=== PATIENT | male | born 1970 | race Caucasian/White ===

== ENCOUNTER 2020-04-06 19:23 | Outpatient (CLI) | payer MEDICARE, SELFPAY ==
--- NOTE | ~2020-04-06 | XR_ITS ---
EXAMINATION: XR toe 1st RT min 2V, XR toe 2nd RT min 2V DATE: 04/06/2020 19:49 INDICATION: Pain and swelling at the right first and second toes after stubbing injury. TECHNIQUE: 1. Dorsal plantar, lateral and oblique views of the right first toe were obtained. 2. Dorsal plantar, lateral and oblique views of the right second toe were obtained. COMPARISON: Right foot radiographs dated 12/29/2013 FINDINGS: Bone alignment is normal. No acute fracture. Chronic appearing small cortical defect along the latera l articular surface of the right first distal phalanx which is new since the prior study and could re present a chronic erosion such as in the setting of gout or an old healed fracture cleft. Mild osteoa rthritis at the first metatarsophalangeal, first interphalangeal, second-fourth distal interphalangea l and fourth proximal interphalangeal joints. Achilles calcaneal enthesophyte. IMPRESSION: No acute osseous abnormality at the right first or second toes. Reviewed, dictated and finalized at location A. IMPRESSION: No acute osseous abnormality at the right first or second toes.
--- NOTE | ~2020-04-06 | XR_ITS ---
EXAMINATION: XR hip BI 2V w AP pelvis DATE: 04/06/2020 19:51 INDICATION: Bilateral hip pain, left greater than right. TECHNIQUE: Anteroposterior view of the pelvis and anteroposterior and frog-leg lateral views of the l eft hip and anteroposterior and frog-leg lateral views of the right hip and were obtained. COMPARISON: None. FINDINGS: Alignment is normal. No fracture or suspected avascular necrosis. Mild bilateral hip osteoarthritis w ith small marginal osteophytes about the femoral heads and acetabula but with relatively preserved pascual int spaces on the provided frontal projections. Sacrum and bilateral sacral iliac joints are normal. Mild to moderate left-sided predominant disc height loss at L4-L5. Mild lower lumbar facet osteoarthr itis. IMPRESSION: 1. Mild bilateral hip osteoarthritis. Reviewed, dictated and finalized at location A.
== END 2020-04-06 19:24 | disposition home or self-care (01) ==
LOC: ANHIMG 19:26
PROVIDERS: PCP Internal Medicine; Visit Provider Clinical Nurse Specialist
DX: M16.0 Bilateral primary osteoarthritis of hip (principal)
CPT/HCPCS: 73521; 73660

== ENCOUNTER 2020-05-14 18:46 | Emergency (ER) | payer MEDICARE, SELFPAY ==
[2020-05-14 18:50] VITALS: BP 177/88; PULSE 81; RESP 20; TEMP 35.9; O2SAT 98
--- NOTE | 2020-05-14 19:50 | ED.GENADULT ---
HPI - General Adult General Chief complaint: Extremity Injury, Lower Stated complaint: left hip pain Time Seen by Provider: 05/14/20 19:18 Source: patient and family Mode of arrival: ambulatory Limitations: no limitations History of Present Illness HPI narrative: 49-year-old male He is mostly healthy despite being morbidly obese, but has a history of some kind of work injury which got him on disability some years ago and he also has a syrinx in his upper spine He reports for about 8 weeks after lifting something heavy and awkward that he has been having what he described his hip pain but it really sounds more like it is lumbar radicular pain since it varies from side to side and sometimes is gone currently it seems to have settled in the left side and radiates posteriorly through the buttocks and all the way down into the calf on the left leg He reports that he is having more and more difficulty ambulating due to the pain He does not have weakness or numbness nor does he have bowel or bladder dysfunction nor does he have any particular risk factors for anything other than a mechanical low back issue He had hip x-rays which showed mild osteoarthritis He has an appointment to see a specialty physician on June 09, but he does not have the information with him and does not know exactly who the doctor is or exactly what their specialty is whether it would be Ortho, or spine, or pain management At some point he was supposed to have gone to physical therapy but the connection with the PT clinic was missed Onset (ago): week(s) Location: buttocks, left and lower extremity Severity: severe Quality: dull Pain Consistency: intermittent Relieving factors: none Exacerbating factors: movement Treatments prior to arrival: other (Tylenol) Related Data Home Medications Medication Instructions Recorded Confirmed aspirin 81 mg tablet,delayed 81 mg PO DAILY 10/24/19 12/18/19 release duloxetine 60 mg capsule,delayed 60 mg PO DAILY 10/24/19 12/18/19 release empagliflozin 10 mg tablet 10 mg PO QAM 10/24/19 12/18/19 sildenafil (pulm.hypertension) 20 20 mg PO DAILY PRN tablet 10/24/19 12/18/19 mg tablet omeprazole 40 mg capsule,delayed 40 mg PO DAILY PRN 03/04/20 release Allergies Allergy/AdvReac Type Severity Reaction Status Date / Time amitriptyline Allergy Unknown Verified 06/21/18 15:48 No Known Allergies Allergy Verified 06/29/18 09:29 Review of Systems Review of Systems: All systems reviewed & are unremarkable except as noted in HPI and below Constitutional: Constitutional: Reports no additional constitutional complaints Eyes: Eyes: Reports no additional eye complaints ENT: Reports system reviewed and no additional complaints, except as documented Cardiovascular: Cardiovascular: Reports no additional cardiovascular complaints Respiratory: Respiratory: Reports no additional respiratory complaints Gastrointestinal: Gastrointestinal: Reports no additional gastrointestinal complaints Musculoskeletal: Musculoskeletal: Reports no additional musculoskeletal complaints and Reports back pain Neurologic: Denies dizziness, Denies focal weakness and Denies weakness Comments: Paresthesia [facility] Past Medical History Medical History (Updated 05/14/20 @ 20:02 by Rory Barrett MD) Appendix injury Removed Bronchitis Bulging disc Cholecystectomy planned 2010 Constipation CTS (carpal tunnel syndrome) Diarrhea Erectile dysfunction Hypercholesterolemia Hypertension Migraine Mononucleosis MRSA (methicillin resistant Staphylococcus aureus) Pneumonia PTSD (post-traumatic stress disorder) Recurrent UTI Sleep apnea Type 2 diabetes mellitus Surgical History Surgical History (Updated 12/18/19 @ 15:06 by Angelica Chaney CMA) H/O elbow surgery H/O shoulder surgery RIght H/O toe surgery Pins in left toe H/O uvulectomy H/O vasectomy History of ear surgery Right History of tonsillectomy Family History F
[2020-05-14 20:30] VITALS: BP 133/78; PULSE 88; RESP 19; O2SAT 97
== END 2020-05-14 20:30 | disposition home or self-care (01) ==
PROVIDERS: Emergency Provider Emergency Medicine; PCP Internal Medicine
DX: M54.16 Radiculopathy, lumbar region (principal); E66.01 Morbid (severe) obesity due to excess calories; Z68.41 Body mass index [BMI] 40.0-44.9, adult; M16.10 Unilateral primary osteoarthritis, unspecified hip; E78.00 Pure hypercholesterolemia, unspecified; I10 Essential (primary) hypertension; Z86.14 Personal history of Methicillin resistant Staphylococcus aureus infection; E11.9 Type 2 diabetes mellitus without complications; G47.30 Sleep apnea, unspecified; Z79.82 Long term (current) use of aspirin
CPT/HCPCS: 99283

== ENCOUNTER → 2020-07-14 11:05 | Outpatient (CLI) | payer MEDICARE, SELFPAY ==
--- NOTE | ~2020-07-14 | XR_ITS ---
EXAMINATION: XR chest 2V EXAM DATE: 07/14/2020 11:45 INDICATION: Sharp anterior chest pain mostly left of the xiphoid. TECHNIQUE: Frontal and lateral projections of the chest obtained and reviewed. Comparison is made to prior examination from 05/29/2018. FINDINGS: The lungs are clear. There are no pleural effusions. The cardiomediastinal silhouette is within normal limits. There is no pneumothorax suspected. The bones and soft tissues are unremarkab le. There is no significant interval change. IMPRESSION: No acute cardiopulmonary findings. Reviewed, dictated and finalized at location B.
== END ==
PROVIDERS: PCP Internal Medicine; Visit Provider Internal Medicine
DX: R07.89 Other chest pain (principal)
CPT/HCPCS: 71046

== ENCOUNTER → 2020-08-11 12:02 | Outpatient (CLI) | payer MEDICARE, SELFPAY ==
--- NOTE | ~2020-08-11 | US_ITS ---
EXAMINATION: US abdomen complete DATE: 08/11/2020 12:31 INDICATION: Left upper quadrant pain TECHNIQUE: Multiple grayscale and Doppler ultrasound images of the abdomen were obtained. COMPARISON: 03/29/2016; CT, 12/06/2016 FINDINGS: Bowel gas obscures visualization of the pancreas. The visualized portions of the pancreas a re unremarkable. The liver demonstrates increased echogenicity, heterogenous echotexture, and decreas ed through transmission. No surface nodularity. Normal hepatopetal flow in the main portal vein. The normal common bile duct measures 4 mm. The visualized portions of the aorta and inferior vena cava ar e normal. The right kidney measures 13.1 x 5.5 x 6.7 cm. The left kidney measures 13.1 x 6.9 x 5.0 cm and conta ins cysts measuring up to 2.4 cm. The kidneys demonstrate normal parenchymal echogenicity. There is n o hydronephrosis. The spleen is normal in appearance and measures 12.9 cm. IMPRESSION: 1. No sonographic correlate for the patient's symptoms. 2. Diffuse hepatic steatosis. Reviewed, dictated and finalized at location A.
== END ==
PROVIDERS: PCP Internal Medicine; Visit Provider Nurse Practitioner
DX: R10.12 Left upper quadrant pain (principal); E11.9 Type 2 diabetes mellitus without complications; K76.0 Fatty (change of) liver, not elsewhere classified
CPT/HCPCS: 76700

== ENCOUNTER → 2020-08-18 14:01 | Outpatient (CLI) | payer MEDICARE, SELFPAY ==
--- NOTE | ~2020-08-18 | CT_ITS ---
EXAMINATION: CT abdomen pelvis wo con DATE: 08/18/2020 14:17 INDICATION: Left upper quadrant pain TECHNIQUE: Computed tomography (CT) of the abdomen and pelvis was performed without intravenous contr ast. The dose-length product was 1195.67 mGy-cm. Automated exposure control and iterative reconstruct ion technique were employed. COMPARISON: CT dated 12/06/2016. FINDINGS: Lung bases are unremarkable. Heart size normal. No significant pleural or pericardial effus ion. No significant vascular abnormality. No lymphadenopathy. Status post cholecystectomy. The spleen, pancreas, adrenal glands and kidneys are unremarkable. No re nal/ureteral stones or hydronephrosis. There is hepatic steatosis. Tiny fat-containing umbilical avel ia. No abnormal pelvic masses or fluid collections. No significant osseous abnormality. Bladder is no t well distended. Nonobstructive bowel gas pattern. No evidence for diverticulitis. Mild chronic ante rior wedging of T11 and T12. IMPRESSION: 1. No acute abdominal abnormality. 2: Hepatic steatosis. Reviewed, dictated and finalized at location A.
== END ==
PROVIDERS: PCP Internal Medicine; Visit Provider Nurse Practitioner
DX: R10.12 Left upper quadrant pain (principal); K76.0 Fatty (change of) liver, not elsewhere classified
CPT/HCPCS: 74176

== ENCOUNTER 2021-01-28 13:47 | Outpatient (CLI) | payer MEDICARE, SELFPAY | END 2021-01-28 13:48 | disposition home or self-care (01) | LOC: ANHBWCAUD 13:49 | PROVIDERS: PCP Internal Medicine; Visit Provider Nurse Practitioner | DX: H91.90 Unspecified hearing loss, unspecified ear (principal) | CPT/HCPCS: 92557; 92567 ==

== ENCOUNTER → 2021-05-06 12:56 | Outpatient (CLI) | payer MEDICARE, SELFPAY ==
--- NOTE | ~2021-05-06 | MR_ITS ---
EXAMINATION: MR shoulder LT wo con DATE: 05/06/2021 13:40 INDICATION: Chronic worsening left shoulder pain, weakness and limited range of motion. TECHNIQUE: Magnetic resonance imaging (MRI) of the left shoulder was performed without intravenous co ntrast. Sequences included axial PD-weighted FS FSE, coronal oblique PD-weighted FS FSE, coronal obli que T2-weighted FS FSE, sagittal PD-weighted FS FSE, and sagittal T1-weighted SE. COMPARISON: 09/25/2012 FINDINGS: Coracoacromial arch: The acromion undersurface is curved in morphology (type II). The coracoacromial ligament is normal. I nterval progression of still mild acromioclavicular osteoarthritis. Rotator cuff: Moderate supraspinatus and patent with small likely articular sided tear at the posterior aspect of t he superior facet footplate of the supraspinatus tendon which measures 5 mm AP and involves at least two thirds of the tendon thickness. This does not appear to extend into the adjacent infraspinatus te ndon on the current study. Mild infraspinatus and subscapularis tendinopathy without discrete tear. T he teres minor tendon is normal. Normal rotator cuff muscle bulk and signal. Biceps tendon, glenoid labrum and glenohumeral cartilage: Long head of the biceps tendon is normal. Glenoid labrum is normal. Glenohumeral cartilage is normal. Fluid: Physiologic amount of fluid in the glenohumeral joint and biceps tendon sheath. No loose osteochondra l bodies. Small amount of fluid in the subacromial/subdeltoid bursa consistent with mild bursitis. Bones: Bone alignment is normal. No fracture or pathologic marrow replacing process. Mild cystic change at t he lesser and greater tuberosities. IMPRESSION: 1. Moderate supraspinatus tendinopathy with small moderate severity bursal sided tear of the distal s upraspinatus tendon. 2. Slight progression of still mild left acromioclavicular osteoarthritis. 3. Mild subacromial/subdeltoid bursitis. Reviewed, dictated and finalized at location A. IMPRESSION: 1. Moderate supraspinatus tendinopathy with small moderate severity bursal side d tear of the distal supraspinatus tendon. 2. Slight progression of still mild left acromioclavicular osteoarthritis. 3. Mild subacromial/subdeltoid bursitis.
== END ==
PROVIDERS: PCP Internal Medicine; Visit Provider Nurse Practitioner
DX: M75.52 Bursitis of left shoulder (principal); M19.012 Primary osteoarthritis, left shoulder
CPT/HCPCS: 73221

== ENCOUNTER 2021-05-13 06:49 | Emergency (ER) | payer MEDICARE, SELFPAY ==
--- NOTE | ~2021-05-13 | XR_ITS ---
EXAMINATION: XR chest 1V portable INDICATION: Hypertension and headache TECHNIQUE: Portable AP chest at 0908 hours COMPARISON: 07/14/2020 FINDINGS: The lungs are free of acute opacities. There is no pleural effusion or pneumothorax. The ca rdiomediastinal silhouette is normal. The visualized bones and soft tissues are unremarkable. IMPRESSION: 1. No acute cardiopulmonary abnormality. Reviewed, dictated and finalized at location B.
--- NOTE | ~2021-05-13 | CT_ITS ---
EXAMINATION: CT brain wo con INDICATION: Hypertension COMPARISON: 10/11/2017 TECHNIQUE: Standard unenhanced head CT. The dose-length product (DLP) was 605.33 mGy-cm. The mA was a djusted according to patient size. Iterative reconstruction technique was employed. FINDINGS: There is no intracranial hemorrhage, acute infarction, or abnormal mass lesion. The ventric les are normal. There is no abnormal mass effect or midline shift. The rod-white matter differentiat ion is normal. The basal cisterns are patent. The orbits are normal. There is mild mucosal thickening of the paranasal sinuses. IMPRESSION: 1. No acute intracranial abnormality. Reviewed, dictated and finalized at location B.
[2021-05-13 07:00] VITALS: BP 202/125; PULSE 86; RESP 18; TEMP 36.7; O2SAT 97
--- NOTE | 2021-05-13 07:05 | ECG_ITS ---
Measurements Intervals Mullen Rate: 84 P: 31 ND: 172 QRS: -4 QRSD: 111 T: 28 QT: 396 QTc: 468 Interpretive Statements SINUS RHYTHM INTRAVENTRICULAR CONDUCTION DELAY VOLTAGE CRITERIA FOR LVH BORDERLINE R WAVE PROGRESSION, ANTERIOR LEADS BASELINE ARTIFACT- III, AVR, AVF BORDERLINE ECG Electronically Signed On 05-13-2021 7:52:45 CDT by David Yusuf D.O.
[2021-05-13 07:14] LABS: Basophils Absolute Auto 0.1 K/mm3 (0.0-0.1); Basophils Percent Auto 0.6 % (0.2-1.2); Eosinophils Absolute Auto 0.1 K/mm3 (0-0.3); Eosinophils Percent Auto 1.5 % (0-4.4); Hematocrit 46.7 % (42.0-52.0); Hemoglobin 15.3 g/dL (14.0-18.0); Immature Granulocyte Absolute 0.03 K/mm3 (0.00-0.031); Immature Granulocyte Percent A 0.3 % (0-0.5); Lymphocytes Absolute Auto 2.71 K/mm3 (0.9-3.2); Lymphocytes Percent Auto 29.9 % (18.3-44.2); Mean Corpuscular HGB Conc 32.8 g/dl (32-36); Mean Corpuscular Hemoglobin 28.4 pg (26-34); Mean Corpuscular Volume 86.6 fl (80-100); Mean Platelet Volume 8.8 fl (7.4-10.4); Monocytes Absolute Auto 0.7 K/mm3 (0.1-0.6); Neutrophils Absolute Auto 5.4 K/mm3 (1.3-6.7); Neutrophils Percent Auto 59.7 % (45.5-73.1); Platelet Count Result 289 k/mm3 (150-375); Red Blood Count 5.39 M/mm3 (4.6-6.20); Red Cell Distribution Width 13.8 % (11.5-14.5); White Blood Count 9.1 K/mm3 (4.5-10.0)
[2021-05-13 07:25] LABS: Alanine Aminotransferase 36 U/L (4-50); Albumin Level 4.6 g/dL (3.5-5.1); Alkaline Phosphatase 74 U/L (38-126); Anion Gap 11 mmol/L (8-16); Aspartate Amino Transferase 41 U/L (17-59); Bilirubin,Total 0.5 mg/dL (0.2-1.3); Blood Urea Nitrogen 14 mg/dL (9-20); Calcium 9.5 mg/dL (8.4-10.2); Carbon Dioxide 28 mmol/L (22-30); Chloride 100 mmol/L (98-107); Estimated CRCL calculation 145 ml/min; Estimated Glomerular Filt Rate > 60; Glucose 184 mg/dL (65-110); Lipase 62 U/L (23-300); Potassium 3.7 mmol/L (3.4-5.0); Sodium 139 mmol/L (137-145)
[2021-05-13 07:37] LABS: Troponin I 0.015 ng/mL (0.000-0.034)
--- NOTE | 2021-05-13 09:00 | ED.GENADULT ---
HPI - General Adult General Chief complaint: Recheck/Abnormal Lab/Rx Stated complaint: high blood pressure, ALMEIDA, vomiting Time Seen by Provider: 05/13/21 08:51 Source: patient and family Mode of arrival: ambulatory Limitations: no limitations History of Present Illness HPI narrative: Patient is 50 years old white male, presents with headache, nausea and vomiting, and elevated blood pressure. Patient ran out of lisinopril 20 mg once a day, 4 days ago, could not get refills. Patient denies any chest pain, shortness of breath, back pain, abdominal pain. Patient also denies any fever or chills or respiratory symptoms. Patient reported history of vertigo and would like to get some medication for it. The hypertension make it worse. Related Data Home Medications Medication Instructions Recorded Confirmed aspirin 81 mg tablet,delayed 81 mg PO DAILY 10/24/19 03/29/21 release cannabidiol 100 mg/mL oral solution PO 08/21/20 03/29/21 lisinopril 20 mg PO DAILY 05/13/21 omeprazole 05/13/21 Allergies Allergy/AdvReac Type Severity Reaction Status Date / Time amitriptyline Allergy Unknown Unknown Verified 05/13/21 07:04 Review of Systems Review of Systems: Narrative: CONSTITUTIONAL: Denies fever, chills, or sweats. EYES: Denies visual changes, redness, or discharge. ENT: Denies rhinorrhea, congestion, sore throat, or otalgia. CARDIOVASCULAR: Denies chest pain, palpitations, or edema. RESPIRATORY: Denies cough or dyspnea. GASTROINTESTINAL: Denies abdominal pain, nausea, vomiting, or diarrhea. GENITOURINARY: Denies dysuria or hematuria. SKIN: Denies rash or itching. MUSCULOSKELETAL: Denies back pain, joint pain, or myalgia. NEUROLOGIC: Denies headache, numbness, or weakness. PSYCHIATRIC: Denies anxiety or depression. [facility] Past Medical History Medical History Appendix injury Removed Bronchitis Bulging disc Cholecystectomy planned 2010 Constipation CTS (carpal tunnel syndrome) Diarrhea Erectile dysfunction Essential hypertension Hearing loss Hypercholesterolemia Hypertension Migraine Mononucleosis MRSA (methicillin resistant Staphylococcus aureus) Pneumonia PTSD (post-traumatic stress disorder) Recurrent UTI Sleep apnea Type 2 diabetes mellitus Surgical History Surgical History H/O elbow surgery H/O shoulder surgery RIght H/O toe surgery Pins in left toe H/O uvulectomy H/O vasectomy History of ear surgery Right History of tonsillectomy Family History Family History Father Family history of diabetes mellitus in first degree relative Acute myocardial infarction Diabetes mellitus Family history of cardiovascular disease Mother Family history of diabetes mellitus in first degree relative Acute myocardial infarction Diabetes mellitus Family history of cardiovascular disease Sibling Family history of diabetes mellitus in first degree relative Other Cerebrovascular accident Family history of allergic disorder Family history of kidney disease Family history of malignant neoplasm Family history of tuberculosis Hypertension Social History Social History Smoking status: Never smoker Alcohol intake: current Alcohol use details: rarely Substance use: current Substance use type: marijuana Other substance usage details: MMJ Gender identity (if verbalized by the patient): Male Exam Narrative: Exam Narrative: General appearance: Well-developed, well-nourished Skin: Normal color Head: Normocephalic, nontraumatic Eyes: Clear conjunctiva ENT: Oropharynx normal, ears normal, nose normal Neck: Supple, nontender Chest and respiratory: Airway patent, no respiratory distress, no accessory muscle use Heart: Regular rate/rhythm Abdomen: Soft, nontender,
[2021-05-13] MEDS: LABETALOL HCL INJ 100 MG/20 ML VIAL 20 MG IV PUSH ×2 (09:41→11:15)
[2021-05-13 09:44] LABS: Add Urine Microscopic? YES; Appearance Urine Clear (Clear); Bilirubin Urine Negative (Negative); Blood Urine Negative (Negative); Color Urine Yellow (Yellow); Glucose Urine UA 1+ mg/dL (Negative); Ketones Urine Negative (Negative); Leukocyte Esterase Ur Trace LEU/UL (Negative); Nitrate Urine Negative (Negative); Protein Urine 1+ mg/dL (Negative); RBC Urine 0-2 /hpf (0-2); Specific Grav Ur 1.019 (1.001-1.035); Urobilinogen Urine Negative mg/dL (<2.0); WBC Urine 0-3 /hpf
[2021-05-13 09:45] VITALS: BP 187/105; PULSE 82; RESP 16; O2SAT 97
[2021-05-13 10:11] VITALS: BP 152/72; PULSE 74; RESP 20; O2SAT 93
[2021-05-13 10:54] VITALS: BP 147/91; PULSE 76; RESP 16; O2SAT 95
[2021-05-13] MEDS: lisinopriL 20 MG TABLET PO (11:19)
--- NOTE | 2021-05-13 11:46 | PC.NURSE ---
Pt okay to discharge per EDP Zackary with BP 170s
[2021-05-13 11:47] VITALS: BP 176/97; PULSE 73; RESP 16; O2SAT 97
== END 2021-05-13 11:49 | disposition home or self-care (01) ==
PROVIDERS: Emergency Provider Emergency Medicine; PCP Internal Medicine
DX: I10 Essential (primary) hypertension (principal); Z91.19 Patient's noncompliance with other medical treatment and regimen; E78.00 Pure hypercholesterolemia, unspecified; E11.9 Type 2 diabetes mellitus without complications; G47.30 Sleep apnea, unspecified; Z86.14 Personal history of Methicillin resistant Staphylococcus aureus infection; Z87.440 Personal history of urinary (tract) infections; Z79.82 Long term (current) use of aspirin; I45.9 Conduction disorder, unspecified; R94.31 Abnormal electrocardiogram [ECG] [EKG]; Z79.84 Long term (current) use of oral hypoglycemic drugs
CPT/HCPCS: 36415; 70450; 71045; 80053; 81001; 83690; 84484; 85025; 93005; 96374; 96375; 99284; A9270

== ENCOUNTER 2021-11-26 13:40 | Outpatient (CLI) | payer MEDICARE, SELFPAY ==
--- NOTE | ~2021-11-26 | MR_ITS ---
EXAMINATION: MR brain/brain stem wo/w con EXAM DATE: 11/26/2021 16:15 INDICATION: R42 - Dizziness and giddiness. TECHNIQUE: Magnetic resonance imaging (MRI) of the brain/brain stem obtained without contrast. Sagit yanely T1, axial diffusion, gradient echo (T2*), T1, T2, FLAIR sequences obtained. Patient was then inj ected with 20 cc intravenous Multihance contrast. Axial and coronal postcontrast T1 weighted sequence s obtained. Correlation is made to head CT 05/13/2021. FINDINGS: There are no areas of restricted diffusion to suggest acute infarction. There is no acute hemorrhage seen on the T2*, a hemosiderin sensitive sequence. No intraparenchymal brain mass. The ve ntricles are normal in size. There are no extra-axial collections. Flow voids are seen in the cereb ral arteries on the T2-weighted sequences consistent with their expected patency. The orbits are unr emarkable. Soft tissue is unremarkable. There are no areas of abnormal enhancement on the post cont rast images. IMPRESSION: 1. Unremarkable brain MRI examination. Reviewed, dictated and finalized at location G. 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
--- NOTE | ~2021-11-26 | US_ITS ---
EXAMINATION: US carotid duplex BI DATE: 11/26/2021 14:39 INDICATION: Slurred speech. TECHNIQUE: Grayscale, color Doppler, and pulsed Doppler images of the cervical carotid arteries were obtained. The degree of vessel stenosis is placed in one of the following categories: normal, <50%, 5 0-69%, >=70% but less than near-occlusion, near-occlusion, or total occlusion. Note that percent sten osis relative to normal distal artery lumen diameter is indirectly measured from velocity measurement s as described by Gilmer, et al. Radiology 2003; 229:340-346. COMPARISON: None. FINDINGS: RIGHT: The right common carotid artery (CCA) peak systolic velocity (PSV) is 128 cm/s. The right internal ca rotid artery (ICA) PSV is 89 cm/s. The right ICA end-diastolic velocity (EDV) is 16 cm/s. The right I CA/CCA PSV ratio is 0.7. Grayscale and color Doppler images yield an estimate of <50% diameter reduct ion from plaque in the ICA. There is antegrade flow in the right vertebral artery. LEFT: The left CCA PSV is 131 cm/s. The left ICA PSV is 93 cm/s. The left ICA EDV is 22 cm/s. The left ICA/ CCA PSV ratio is 0.7. Grayscale and color Doppler images yield an estimate of <50% diameter reduction from plaque in the ICA. There is antegrade flow in the left vertebral artery. IMPRESSION: 1. <50% stenosis in the right internal carotid artery. 2. <50% stenosis in the left internal carotid artery. Reviewed, dictated and finalized at location E. 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
[2021-11-26 15:36] LABS: Estimated Glomerular Filt Rate > 60
== END 2021-11-26 13:41 | disposition home or self-care (01) ==
PROVIDERS: PCP Internal Medicine; Visit Provider Nurse Practitioner
DX: R42 Dizziness and giddiness (principal); H53.9 Unspecified visual disturbance; I65.23 Occlusion and stenosis of bilateral carotid arteries
CPT/HCPCS: 70553; 93880; A9577

== ENCOUNTER 2022-01-24 14:11 | Outpatient (CLI) | payer MEDICARE, SELFPAY ==
[2022-01-24 14:52] LABS: Basophils Percent Auto 0.4 % (0.2-1.2); Eosinophils Absolute Auto 0.2 K/mm3 (0-0.3); Eosinophils Percent Auto 1.9 % (0-4.4); Hematocrit 42.9 % (42.0-52.0); Hemoglobin 14.3 g/dL (14.0-18.0); Immature Granulocyte Absolute 0.03 K/mm3 (0.00-0.031); Immature Granulocyte Percent A 0.4 % (0-0.5); Lymphocytes Absolute Auto 2.82 K/mm3 (0.9-3.2); Lymphocytes Percent Auto 33.1 % (18.3-44.2); Mean Corpuscular HGB Conc 33.3 g/dl (32-36); Mean Corpuscular Hemoglobin 28.7 pg (26-34); Mean Corpuscular Volume 86.1 fl (80-100); Monocytes Absolute Auto 0.8 K/mm3 (0.1-0.6); Neutrophils Absolute Auto 4.7 K/mm3 (1.3-6.7); Neutrophils Percent Auto 55.2 % (45.5-73.1); Platelet Count Result 345 k/mm3 (150-375); Red Blood Count 4.98 M/mm3 (4.6-6.20); Red Cell Distribution Width 13.8 % (11.5-14.5); White Blood Count 8.5 K/mm3 (4.5-10.0)
[2022-01-24 15:02] LABS: Alanine Aminotransferase 43 U/L (4-50); Albumin Level 4.8 g/dL (3.5-5.1); Alkaline Phosphatase 78 U/L (38-126); Anion Gap 10 mmol/L (8-16); Aspartate Amino Transferase 49 U/L (17-59); Bilirubin,Total 0.6 mg/dL (0.2-1.3); Blood Urea Nitrogen 18 mg/dL (9-20); Calcium 9.9 mg/dL (8.4-10.2); Carbon Dioxide 32 mmol/L (22-30); Chloride 99 mmol/L (98-107); Cholesterol 167 mg/dL (0-200); Estimated Glomerular Filt Rate > 60; Glucose 128 mg/dL (65-110); HDL Direct 40 mg/dL; Potassium 4.2 mmol/L (3.4-5.0); Sodium 141 mmol/L (137-145); Triglycerides 338 mg/dL (<150)
[2022-01-24 15:14] LABS: LDL Cholesterol Direct 65 mg/dL
[2022-01-24 15:20] LABS: Hemoglobin A1C 6.8 % (<5.7)
[2022-01-24 15:32] LABS: Prostate Specific Antigen 0.5 ng/mL (< OR = 4.0)
[2022-01-28 16:17] LABS: Testosterone Free 38.6 pg/mL (35.0-155.0); Testosterone Total 339 ng/dL (250-1100)
== END 2022-01-24 14:12 | disposition home or self-care (01) ==
PROVIDERS: PCP Internal Medicine; Visit Provider Nurse Practitioner
DX: E11.9 Type 2 diabetes mellitus without complications (principal); I10 Essential (primary) hypertension; Z12.5 Encounter for screening for malignant neoplasm of prostate; R53.83 Other fatigue
CPT/HCPCS: 36415; 80053; 80061; 83036; 84153; 84402; 84403; 84443; 85025; G0103

== ENCOUNTER 2022-08-15 07:48 | Outpatient (CLI) | payer MEDICARE, SELFPAY | END 2022-08-15 07:49 | disposition home or self-care (01) | LOC: ANHLAB 07:50 | PROVIDERS: PCP Internal Medicine; Visit Provider Nurse Practitioner | DX: E11.9 Type 2 diabetes mellitus without complications (principal) | CPT/HCPCS: 36415; 83036 ==

== ENCOUNTER 2023-02-23 12:35 | Outpatient (CLI) | payer MEDICARE, SELFPAY ==
[2023-02-23 19:20] LABS: Basophils Absolute Auto 0.1 K/mm3 (0.0-0.1); Basophils Percent Auto 0.7 % (0.2-1.2); Eosinophils Absolute Auto 0.2 K/mm3 (0-0.3); Eosinophils Percent Auto 2.5 % (0-4.4); Hematocrit 42.5 % (42.0-52.0); Hemoglobin 13.8 g/dL (14.0-18.0); Immature Granulocyte Absolute 0.03 K/mm3 (0.00-0.031); Immature Granulocyte Percent A 0.4 % (0-0.5); Lymphocytes Absolute Auto 2.28 K/mm3 (0.9-3.2); Lymphocytes Percent Auto 26.7 % (18.3-44.2); Mean Corpuscular HGB Conc 32.5 g/dl (32-36); Mean Corpuscular Hemoglobin 28.4 pg (26-34); Mean Corpuscular Volume 87.4 fl (80-100); Mean Platelet Volume 9.6 fl (7.4-10.4); Monocytes Absolute Auto 0.7 K/mm3 (0.1-0.6); Monocytes Percent Auto 8.7 % (2.6-8.5); Neutrophils Absolute Auto 5.2 K/mm3 (1.3-6.7); Platelet Count Result 323 k/mm3 (150-375); Red Blood Count 4.86 M/mm3 (4.6-6.20); Red Cell Distribution Width 13.6 % (11.5-14.5); White Blood Count 8.5 K/mm3 (4.5-10.0)
[2023-02-23 19:41] LABS: Alanine Aminotransferase 58 U/L (6-50); Albumin Level 4.5 g/dL (3.5-5.1); Alkaline Phosphatase 76 U/L (38-126); Anion Gap 10 mmol/L (8-16); Aspartate Amino Transferase 69 U/L (17-59); Bilirubin,Total 0.6 mg/dL (0.2-1.3); Blood Urea Nitrogen 15 mg/dL (9-20); Calcium 9.4 mg/dL (8.4-10.2); Carbon Dioxide 29 mmol/L (22-30); Chloride 97 mmol/L (98-107); Cholesterol 145 mg/dL (0-200); Estimated Glomerular Filt Rate > 60; Glucose 166 mg/dL (65-110); HDL Direct 37 mg/dL; Potassium 4.5 mmol/L (3.4-5.0); Sodium 136 mmol/L (137-145); Triglycerides 160 mg/dL (<150)
[2023-02-23 19:52] LABS: LDL Cholesterol Direct 78 mg/dL
[2023-02-23 20:12] LABS: Prostate Specific Antigen 0.5 ng/mL (< OR = 4.0)
[2023-02-23 21:55] LABS: Hemoglobin A1C 8.2 % (<5.7)
== END 2023-02-23 12:36 | disposition home or self-care (01) ==
LOC: ANHGOSHLAB 12:37
PROVIDERS: PCP Internal Medicine; Visit Provider Nurse Practitioner
DX: E11.9 Type 2 diabetes mellitus without complications (principal); Z12.5 Encounter for screening for malignant neoplasm of prostate
CPT/HCPCS: 36415; 80053; 80061; 83036; 84153; 85025; G0103

== ENCOUNTER 2023-03-23 00:52 | Day surgery (SDC) | payer MEDICARE, SELFPAY ==
[2023-03-09 11:55] VITALS: BMI 40.1
[2023-03-23 12:42] VITALS: BP 155/86; PULSE 82; RESP 17; TEMP 36.6; O2SAT 97
[2023-03-23] MEDS: LACTATED RINGERS 1,000 ML 150 ML IV CONT (12:53)
[2023-03-23 12:56] LABS: Glucose Point of Care 165 mg/dl (65-105)
--- NOTE | 2023-03-23 12:56 | PM.HPGS ---
History of Present Illness History of Present Illness Consent: Risks, benefits, and alternatives have been discussed and questions answered. Patient agrees to proceed with procedure. Chief complaint: nausea Narrative: Julio Jin is a 52 year old male Presents for EGD. Patient complains of nausea with occasional vomiting over last 1 month. He also reports he has had some epigastric discomfort for many years. Patient has been treated for diabetes. Recently on omeprazole as well as metformin. Patient denies any bleeding. He has had no weight loss. Family history noncontributory. The past he was told he had fatty liver. Patient denies dysphagia. Review of Systems Review of Systems: Review of systems noncontributory. [facility] Past Medical History Medical History (Updated 03/23/23 @ 12:58 by Rory Sanchez MD) Abnormal ankle brachial index (CANDE) Appendix injury Removed Arthritis of left acromioclavicular joint Bronchitis Bulging disc Cholecystectomy planned 2010 Constipation CTS (carpal tunnel syndrome) Diarrhea Erectile dysfunction Erectile dysfunction Essential hypertension Hearing loss Hepatic steatosis Hypercholesterolemia Hypertension Left rotator cuff tear Migraine Mononucleosis MRSA (methicillin resistant Staphylococcus aureus) Pneumonia PTSD (post-traumatic stress disorder) Recurrent UTI Sleep apnea Syrinx Type 2 diabetes mellitus pt states last A1c was around january 2021 less than 7 Surgical History Surgical History H/O elbow surgery H/O shoulder surgery RIght H/O toe surgery Pins in left toe H/O uvulectomy H/O vasectomy History of ear surgery Right History of tonsillectomy Family History Family History Father Family history of diabetes mellitus in first degree relative Acute myocardial infarction Diabetes mellitus Family history of cardiovascular disease Mother Family history of diabetes mellitus in first degree relative Acute myocardial infarction Diabetes mellitus Family history of cardiovascular disease Sibling Family history of diabetes mellitus in first degree relative Other Cerebrovascular accident Family history of allergic disorder Family history of kidney disease Family history of malignant neoplasm Family history of tuberculosis Hypertension Social History Social History (Updated 03/02/23 @ 11:26 by Jennifer Puga [facility]) Social History: Caffeine-daily Smoking status: Never smoker Alcohol intake: current Alcohol use details: 2 beers monthly Substance use: current Substance use type: marijuana Other substance usage details: edibles Lack of Transportation: No Lack of Food: Never True Current Housing: I Have Housing Concerned About Future Housing: No Difficulty Paying Gas/Electric Bills: No Education: Associate Degree Difficulty w/ Childcare or Family Care: No Living arrangements: with family Gender identity (if verbalized by the patient): Male Spiritual care concerns: No Meds Home Medications and Allergies Home Medications Medication Instructions Recorded Confirmed Type aspirin 81 mg tablet,delayed 81 mg PO DAILY 10/24/19 03/09/23 History release (Adult Low Dose Aspirin) hydrochlorothiazide 25 mg tablet 25 mg PO DAILY #90 tabs 01/24/22 03/09/23 Rx cholecalciferol (vitamin D3) 125 125 mcg PO DAILY 08/26/22 03/09/23 History mcg (5,000 unit) capsule zinc acetate 1 cap PO DAILY 08/26/22 03/09/23 History blood-glucose meter (OneTouch #1 ea 09/07/22 03/02/23 Rx Verio Flex Meter) lisinopril 40 mg tablet 40 mg PO DAILY #90 tabs 10/20/22 03/09/23 Rx penicillin V potassium 500 mg 1,000 mg PO DAILY 02/23/23 03/09/23 History tablet glipizide 10 mg tablet 10 mg PO BID #180 tabs 03/02/23 03/09/23 Rx metformin 1,000 mg tablet 1,000 mg PO BID #180 tabs 03/08/23
--- NOTE | 2023-03-23 12:57 | WPDANESEPPF ---
Anes - Initial Pre Proc Eval Procedure: Operation Date: 03/23/23 13:45 Proposed Procedures p Esophagogastroduodenoscopy - Rory Sanchez MD Date/Time: 03/23/23 12:57 Surgeon: Rory Sanchez MD Pre Op Diagnosis: nausea Patient Data Age: 52 Gender: M Height: 1.88 m Weight: 142.7 kg Last Vital Signs Temp 98 F 03/23/23 12:42 Pulse 82 03/23/23 12:42 Resp 17 03/23/23 12:42 BP 155/86 H 03/23/23 12:42 Pulse Ox 97 03/23/23 12:42 O2 Del Method Room Air 03/23/23 12:42 Allergies Allergy/AdvReac Type Severity Reaction Status Date / Time amitriptyline Allergy Unknown Unknown Verified 03/23/23 12:36 Home Medications Medication Instructions Recorded Confirmed Type aspirin 81 mg tablet,delayed 81 mg PO DAILY 10/24/19 03/09/23 History release (Adult Low Dose Aspirin) hydrochlorothiazide 25 mg tablet 25 mg PO DAILY #90 tabs 01/24/22 03/09/23 Rx cholecalciferol (vitamin D3) 125 125 mcg PO DAILY 08/26/22 03/09/23 History mcg (5,000 unit) capsule zinc acetate 1 cap PO DAILY 08/26/22 03/09/23 History blood-glucose meter (OneTouch #1 ea 09/07/22 03/02/23 Rx Verio Flex Meter) lisinopril 40 mg tablet 40 mg PO DAILY #90 tabs 10/20/22 03/09/23 Rx penicillin V potassium 500 mg 1,000 mg PO DAILY 02/23/23 03/09/23 History tablet glipizide 10 mg tablet 10 mg PO BID #180 tabs 03/02/23 03/09/23 Rx metformin 1,000 mg tablet 1,000 mg PO BID #180 tabs 03/08/23 03/09/23 Rx amlodipine 10 mg tablet 10 mg PO DAILY 03/09/23 03/09/23 History atorvastatin 40 mg tablet 40 mg PO DAILY 03/09/23 03/09/23 History clonidine HCl 0.1 mg tablet 0.1 mg PO BID 03/09/23 03/09/23 History meclizine 25 mg tablet 25 mg PO BID PRN Dizziness 03/09/23 03/09/23 History omeprazole 40 mg capsule,delayed 40 mg PO DAILY PRN Indigestion 03/09/23 03/09/23 History release Laboratory Tests 03/23/23 12:51 POC Capillary Glucose 165 H mg/dl (65-105) Patient hx anesthesia problems: none Family hx anesthesia problems: none Results Review: All pre-operative results and documents have been reviewed as part of the pre-operative evaluation. [facility] Past Medical History Medical History (Updated 03/23/23 @ 12:58 by Rory Sanchez MD) Abnormal ankle brachial index (CANDE) Appendix injury Removed Arthritis of left acromioclavicular joint Bronchitis Bulging disc Cholecystectomy planned 2010 Constipation CTS (carpal tunnel syndrome) Diarrhea Erectile dysfunction Erectile dysfunction Essential hypertension Hearing loss Hepatic steatosis Hypercholesterolemia Hypertension Left rotator cuff tear Migraine Mononucleosis MRSA (methicillin resistant Staphylococcus aureus) Pneumonia PTSD (post-traumatic stress disorder) Recurrent UTI Sleep apnea Syrinx Type 2 diabetes mellitus pt states last A1c was around january 2021 less than 7 Surgical History Surgical History H/O elbow surgery H/O shoulder surgery RIght H/O toe surgery Pins in left toe H/O uvulectomy H/O vasectomy History of ear surgery Right History of tonsillectomy Family History Family History Father Family history of diabetes mellitus in first degree relative Acute myocardial infarction Diabetes mellitus Family history of cardiovascular disease Mother Family history of diabetes mellitus in first degree relative Acute myocardial infarction Diabetes mellitus Family history of cardiovascular disease Sibling Family history of diabetes mellitus in first degree relative Other Cerebrovascular accident Family history of allergic disorder Family history of kidney disease Family history of malignant neoplasm Family history of tuberculosis Hypertension Social History Social History (Updated 03/02/23 @ 11:26 by Jennifer Puga CMA) Social History: Caffeine-daily Smoking status: Never smoker Alc
[2023-03-23 13:40] VITALS: BP 144/88; PULSE 72; RESP 16; O2SAT 99
[2023-03-23 13:50] VITALS: BP 138/84; PULSE 73; RESP 20; O2SAT 96
[2023-03-23 14:00] VITALS: BP 148/88; PULSE 68; RESP 16; O2SAT 96
== END 2023-03-23 14:17 | disposition home or self-care (01) ==
PROVIDERS: PCP Internal Medicine; Visit Provider Internal Medicine Gastroenterology
PROC: 0DJ08ZZ Inspection of Upper Intestinal Tract, Via Natural or Artificial Opening Endoscopic (ICD-10-PCS; CPT 43235; principal; 2023-03-23 13:45)
DX: R11.0 Nausea (principal); R10.13 Epigastric pain; I10 Essential (primary) hypertension; E78.00 Pure hypercholesterolemia, unspecified; E11.9 Type 2 diabetes mellitus without complications; G47.30 Sleep apnea, unspecified; F12.90 Cannabis use, unspecified, uncomplicated; E66.01 Morbid (severe) obesity due to excess calories; Z68.41 Body mass index [BMI] 40.0-44.9, adult; Z79.82 Long term (current) use of aspirin; Z79.84 Long term (current) use of oral hypoglycemic drugs
CPT/HCPCS: 43239; 82948; 87081; J2704; J7120

== ENCOUNTER 2023-03-31 09:01 | Outpatient (CLI) | payer MEDICARE, SELFPAY ==
--- NOTE | ~2023-03-31 | NM_ITS ---
EXAMINATION: NM barry stress w perfusion DATE: 03/31/2023 10:58 INDICATION: Other forms of dyspnea. TECHNIQUE: Rest images were obtained following intravenous administration of 11.0 mCi Tc99m tetrofosm in (Myoview). The patient was infused intravenously with Lexiscan (regadenoson). Then, 34.0 mCi Tc99m tetrofosmin (Myoview) was administered intravenously, and stress images were obtained. Data was francesca nstructed into short axis and horizontal and vertical long axis SPECT images. Gated SPECT images were also obtained. COMPARISON: Myocardial perfusion imaging FINDINGS: There is no definite reversible or fixed perfusion abnormality to suggest ischemia or infar ction. There is no segmental wall motion abnormality. Left ventricular ejection fraction measures 4 7%. IMPRESSION: 1. No definite ischemia or infarct. 2. Left ventricular ejection fraction measuring 47%. Reviewed, dictated and finalized at location A.
--- NOTE | 2023-03-31 09:29 | EST_ITS ---
Patient Info Name: Julio Jin Age: 52 years : 1970 Gender: Male Ht: 74 in Wt: 312 lbs BSA: 2.77 m2 HR: 70 bpm BP: 135 / 70 mmHg Exam Date: 03/31/2023 10:06 AM Exam Location: [facility] Stress Patient Status: Outpatient Admit Date: 03/31/2023 Staff Ordering Physician: María Elena Bradshaw NP Attending Provider: María Elena Bradshaw NP Exercise Technologist: Jackie Ruiz CT Exercise Physician: David Yusuf DO Exam Type: CA stress barry w NM Study Info A regadenoson stress test was performed. Summary 1. 1. Negative lexiscan stress test for ischemic ST changes by ECG criteria. 2. 2. Stable hemodynamics throughout the test. 3. 3. Nuclear scan to follow and will be reported separately. Please correlate with it. 4. 4. Patient informed of the above results. Protocol: Lexiscan Stress ECG Details Stage: REST Duration (min): 0 min : 56 sec HR (bpm): 70 SBP (mmHg): 135 DBP (mmHg): 70 Stage: REST Duration (min): 13 min : 47 sec HR (bpm): 74 SBP (mmHg): 135 DBP (mmHg): 70 Stage: STAGE 1 Duration (min): 1 min : 0 sec HR (bpm): 81 SBP (mmHg): 139 DBP (mmHg): 51 Stage: RECOVERY Duration (min): 1 min : 0 sec HR (bpm): 79 SBP (mmHg): 139 DBP (mmHg): 51 Stage: RECOVERY Duration (min): 2 min : 0 sec HR (bpm): 76 SBP (mmHg): 139 DBP (mmHg): 51 Stage: RECOVERY Duration (min): 2 min : 59 sec HR (bpm): 78 SBP (mmHg): 134 DBP (mmHg): 66 Rest HR: 74 bpm Peak HR: 83 bpm Rest Sys BP: 135 mmHg Peak Sys BP: 139 mmHg Max Pred HR: 169 bpm % Max Pred HR: 49 % Target HR: 144 bpm Max RPP: 11,537 bpm*mmHg Termination Reason: Completed protocol Cardiac Symptoms: Shortness of breath Total Time: 1 min : 0 sec Rest Cristobal BP: 70 mmHg Peak Cristobal BP: 51 mmHg Total Dose: 0.4 mg Resting ECG Sinus rhythm. Stress ECG No ST changes. Arrhythmias None. Report Signatures Amended by David Yusuf DO on 03/31/2023 11:20
== END 2023-03-31 09:02 | disposition home or self-care (01) ==
LOC: ANHCARD 09:03
PROVIDERS: PCP Internal Medicine; Visit Provider Nurse Practitioner
DX: R06.09 Other forms of dyspnea (principal)
CPT/HCPCS: 78452; 93017; A9502; J2785

== ENCOUNTER 2023-08-07 01:12 | Day surgery (SDC) | payer MEDICARE, SELFPAY ==
[2023-07-25 17:32] VITALS: BMI 40.5
--- NOTE | 2023-07-25 17:36 | PC.NURSE ---
Report to the Outpatient Waiting Room, entrance under the green pavilion located off [facility], at time _1215_ on date _[id number]_. Planned Procedure Time: _115pm_. Time changes happen often and if your time is changed the preop area will call you the afternoon before. - You and your visitor will be asked to self-screen and do not enter if you have any COVID symptoms. - A mask is optional within the hospital at this time. Light breakfast. Nothing to eat or drink after 1115am. Take the following medications with a SIP of water the morning of surgery: ____Take medications as usual DO NOT STOP ANY OF YOUR OTHER PRESCRIPTION MEDICATIONS PRIOR TO SURGERY ?EXCEPT THE FOLLOWING Medications to discontinue per physician ____None Date to take last dose Please no make-up, nail yoruba, hairspray, perfume, deodorant, or body powder the day of surgery. No jewelry (including any body piercings) or valuables the day of surgery, leave them at home. Please take a shower or bath the night before, or the morning of, surgery with an antibacterial soap. Wear comfortable, loose fitting clothing. - Jewelry must be removed prior to entering the operating room. Rings and piercings that are not removed may be cut off. - The hospital will not accept responsibility for valuables. - Please leave all valuables, including medications, at home the day of surgery. Follow any additional instructions given to you from your surgeon. If you or anyone in your household have experienced Covid symptoms in the past week, please notify your surgeon or the nurse liaison at the phone number below for possible testing. Telephone instructions given to __Patient_and asked if any additional questions and then verbalized understanding. Patient advised to call surgeon office or pre surgery nurse liaison [phone] if any additional questions.
--- NOTE | ~2023-08-07 | XR_ITS ---
EXAMINATION: XR fluoroscopy no charge DATE: 08/07/2023 13:32 INDICATION: Cervical steroid injection. TECHNIQUE: 5 fluoroscopic images of the cervical spine were obtained during procedure performed by Dr Denny Mueller. Radiologist was not present for the imaging or procedure. The amount of fluoroscopy time used during this procedure was 0.3 minutes. COMPARISON: None. FINDINGS/IMPRESSION: Images demonstrate a spinal needle tip and injected contrast in the lower cervical epidural space via right C6-C7 interlaminar approach. See procedure note for further detail. Reviewed, dictated and finalized at location A.
--- NOTE | 2023-08-07 05:27 | PM.HPGS ---
History of Present Illness History of Present Illness Consent: Risks, benefits, and alternatives have been discussed and questions answered. Patient agrees to proceed with procedure. Chief complaint: Cervical radiculopathy Narrative: Julio Jin is a 53 year old male with persistent, recalcitrant cervical radiculopathy resulting in significant pain with limitation in ability to tolerate activities of daily living, self-care and work related activities. Review of Systems Review of Systems: All systems reviewed & are unremarkable except as noted in HPI and below PMFSH Past Medical History Medical History Abnormal ankle brachial index (CANDE) Appendix injury Removed Arthritis of left acromioclavicular joint Bronchitis Bulging disc Cholecystectomy planned 2010 Constipation CTS (carpal tunnel syndrome) Diarrhea Erectile dysfunction Erectile dysfunction Essential hypertension Hearing loss Hepatic steatosis Hypercholesterolemia Hypertension Left rotator cuff tear Migraine Mononucleosis MRSA (methicillin resistant Staphylococcus aureus) Pneumonia PTSD (post-traumatic stress disorder) Recurrent UTI Sleep apnea Syrinx Type 2 diabetes mellitus pt states last A1c was around january 2021 less than 7 Surgical History Surgical History H/O elbow surgery H/O shoulder surgery RIght H/O toe surgery Pins in left toe H/O uvulectomy H/O vasectomy History of ear surgery Right History of tonsillectomy Family History Family History Father Family history of diabetes mellitus in first degree relative Acute myocardial infarction Diabetes mellitus Family history of cardiovascular disease Mother Family history of diabetes mellitus in first degree relative Acute myocardial infarction Diabetes mellitus Family history of cardiovascular disease Sibling Family history of diabetes mellitus in first degree relative Other Cerebrovascular accident Family history of allergic disorder Family history of kidney disease Family history of malignant neoplasm Family history of tuberculosis Hypertension Social History Social History Social History: Caffeine-daily Smoking status: Never smoker Alcohol intake: current Alcohol use details: 2 beers monthly Substance use: current Substance use type: marijuana Other substance usage details: edibles Lack of Transportation: No Lack of Food: Never True Current Housing: I Have Housing Concerned About Future Housing: No Difficulty Paying Gas/Electric Bills: No Education: Associate Degree Difficulty w/ Childcare or Family Care: No Living arrangements: with family Gender identity (if verbalized by the patient): Male Spiritual care concerns: No Meds Home Medications and Allergies Home Medications Medication Instructions Recorded Confirmed Type aspirin 81 mg tablet,delayed 81 mg PO DAILY 10/24/19 07/25/23 History release (Adult Low Dose Aspirin) hydrochlorothiazide 25 mg tablet 25 mg PO DAILY #90 tabs 01/24/22 07/25/23 Rx cholecalciferol (vitamin D3) 125 125 mcg PO DAILY 08/26/22 07/25/23 History mcg (5,000 unit) capsule zinc acetate 1 cap PO DAILY 08/26/22 07/25/23 History blood-glucose meter ([employer] #1 ea 09/07/22 07/25/23 Rx Verio Flex Meter) glipizide 10 mg tablet 10 mg PO BID #180 tabs 03/02/23 07/25/23 Rx metformin 1,000 mg tablet 1,000 mg PO BID #180 tabs 03/08/23 07/25/23 Rx amlodipine 10 mg tablet 10 mg PO DAILY 03/09/23 07/25/23 History atorvastatin 40 mg tablet 40 mg PO DAILY 03/09/23 07/25/23 History clonidine HCl 0.1 mg tablet 0.1 mg PO BID 03/09/23 07/25/23 History meclizine 25 mg tablet 25 mg PO BID PRN Dizziness 03/09/23 07/25/23 History omeprazole 40 mg capsule,delayed 40
--- NOTE | 2023-08-07 05:31 | WPDHPUPDATE1 ---
History and Physical Update Update Date/Time: 08/07/23 05:31 History and Physical has been reviewed, including an updated exam of the patient. There are NO changes in the patient's condition. Risks, benefits, and alternatives have been discussed and questions answered. Patient agrees to proceed with procedure.
[2023-08-07 11:30] VITALS: BP 157/85; PULSE 78; RESP 16; TEMP 36.6; O2SAT 99
[2023-08-07 13:23] VITALS: BP 158/95; PULSE 75; RESP 20; O2SAT 96
[2023-08-07] MEDS: LIDOCAINE HCL 1% PF INJ 5 ML VIAL INFILTRATE (13:27)
[2023-08-07 13:28] VITALS: BP 171/96; PULSE 78; RESP 20; O2SAT 97
[2023-08-07] MEDS: BETAMETHASONE SOD PHOS/ACETATE 30 MG/5 ML VIAL 6 MG IM (13:30)
[2023-08-07 13:38] VITALS: BP 150/75; PULSE 77; RESP 20; O2SAT 98
--- NOTE | 2023-08-07 14:55 | W.PM.PROC2 ---
Procedure Note - Detailed Date of Procedure 08/07/23 Pre-op Diagnosis Cervical radiculopathy Post-op Diagnosis Same Procedure Performed Rightward C6-7 Interlaminar Epidural Steroid Injection with Fluoroscopy and contrast control Surgeon Pj Mueller MD Anesthesia Local Description of Procedure INFORMED CONSENT: Risks, benefits and alternatives to the procedure were discussed in detail with the patient who expressed explicit understanding and consent to proceed. Patient was informed verbally and in written form regarding the risks associated with the procedure including the low risk of serious infection, bleeding/bruising, allergic reaction, nerve or organ injury, paralysis, procedural site pain or discomfort, worsening pain and/or mobility, failure to treat and/or disfigurement. The patient expressed explicit understanding and consent to proceed. All materials required for the procedure were available prior to procedure start. Site and side was marked prior to procedure and confirmed in the presence of the patient. PROCEDURE IN DETAIL: The patient was brought to the procedural suite and placed in the prone position. Patient's head was positioned and stabilized with a ProneView pillow or equivalent. Patient was made comfortable with use of pillows under the chest, hips and ankles. Skin overlying the injection site was prepared broadly with ChloraPrep applicator and draped in a sterile manner. Aseptic technique was employed throughout. The endplates of the vertebral body at the site of interest were aligned in the AP view. Slight caudad tilt and ipsilateral oblique angulation was utilized to optimize visualization of the targeted posterior intervertebral foramen at C6-7. Local anesthesia was established by infiltration with approximately 5 mL of 2% lidocaine via a 1-1/2 inch 27-gauge needle. A 20-gauge 4-inch Tuohy epidural needle was advanced intermittently until appropriate loss of resistance to air was identified via plastic loss of resistance syringe. Lateral view was used to confirm the appropriate positioning of the needle tip within the posterior epidural space. In the AP view, 2.0 mL of Omnipaque 300 contrast medium was injected after negative aspiration for CSF, blood or other bodily fluid, showing appropriate epidural spread of contrast without evidence of intravascular or intrathecal placement. After negative repeat aspiration for CSF, blood or other bodily fluid, A 4 mL solution containing 6 mg of betamethasone in sterile PF Normal Saline was injected after negative repeat aspiration. Appropriate spread of the injectate was confirmed with washout of previously injected contrast. No parasthesias were elicited. Needle was removed completely intact without difficulty. Images were saved and documented in the patient chart. Patient's skin was cleansed and sterile bandage applied. The patient tolerated the procedure well. The patient was transported to the recovery area in stable condition where they were observed for an appropriate amount of time prior to discharge, without evidence of complication. The patient was instructed to avoid excessive activity for the next 48 hours, including overhead work, reaching or extended device/computer usage. Showers only for 48 hours. They were instructed not to drive or operate heavy machinery for 24 hours. They are to monitor for severe headaches, fevers, chills, night sweats, erythema/swelling at the site or any other signs of infection, bleeding/bruising, bowel or bladder changes as well as new pain, weakness or numbness in the upper or lower extremity. Should they notice these changes, they are instructed to call our office immediately or report directly to the nearest Emergency Department if no answer or if after posted office hours. CONTRAST WASTED: 28mL Omnipaque 300. Complications None Condition Stable Disposition PACU [facility] Billing Surgery - Charge Forward: Surgery Billing
== END 2023-08-07 13:45 | disposition home or self-care (01) ==
PROVIDERS: PCP Nurse Practitioner; Visit Provider Anesthesiology Pain Medicine
PROC: (CPT 62321; principal; 2023-08-07 11:45)
DX: M54.12 Radiculopathy, cervical region (principal); M48.02 Spinal stenosis, cervical region; I10 Essential (primary) hypertension; E78.00 Pure hypercholesterolemia, unspecified; E11.9 Type 2 diabetes mellitus without complications; F43.10 Post-traumatic stress disorder, unspecified; G47.30 Sleep apnea, unspecified; Z79.82 Long term (current) use of aspirin; Z79.84 Long term (current) use of oral hypoglycemic drugs
CPT/HCPCS: 62321; 99199; J0702

== ENCOUNTER 2023-08-15 17:25 | Outpatient (CLI) | payer MEDICARE, SELFPAY ==
[2023-08-15 17:55] LABS: Basophils Percent Auto 0.4 % (0.2-1.2); Eosinophils Absolute Auto 0.2 K/mm3 (0-0.3); Eosinophils Percent Auto 2.6 % (0-4.4); Hematocrit 45.9 % (42.0-52.0); Hemoglobin 14.9 g/dL (14.0-18.0); Immature Granulocyte Absolute 0.02 K/mm3 (0.00-0.031); Immature Granulocyte Percent A 0.2 % (0-0.5); Lymphocytes Absolute Auto 2.25 K/mm3 (0.9-3.2); Lymphocytes Percent Auto 27.8 % (18.3-44.2); Mean Corpuscular HGB Conc 32.5 g/dl (32-36); Mean Corpuscular Hemoglobin 27.6 pg (26-34); Mean Corpuscular Volume 85.2 fl (80-100); Mean Platelet Volume 9.5 fl (7.4-10.4); Monocytes Absolute Auto 0.8 K/mm3 (0.1-0.6); Neutrophils Absolute Auto 4.8 K/mm3 (1.3-6.7); Platelet Count Result 268 k/mm3 (150-375); Red Blood Count 5.39 M/mm3 (4.6-6.20); Red Cell Distribution Width 13.7 % (11.5-14.5); White Blood Count 8.1 K/mm3 (4.5-10.0)
[2023-08-15 18:04] LABS: Alanine Aminotransferase 75 U/L (6-50); Albumin Level 4.7 g/dL (3.5-5.1); Alkaline Phosphatase 80 U/L (38-126); Anion Gap 11 mmol/L (8-16); Aspartate Amino Transferase 69 U/L (17-59); Bilirubin,Total 0.8 mg/dL (0.2-1.3); Blood Urea Nitrogen 17 mg/dL (9-20); Calcium 9.3 mg/dL (8.4-10.2); Carbon Dioxide 25 mmol/L (22-30); Chloride 98 mmol/L (98-107); Cholesterol 160 mg/dL (0-200); Estimated Glomerular Filt Rate > 60; Glucose 268 mg/dL (65-110); HDL Direct 41 mg/dL; Potassium 4.4 mmol/L (3.4-5.0); Sodium 134 mmol/L (137-145); Triglycerides 207 mg/dL (<150)
[2023-08-15 18:15] LABS: LDL Cholesterol Direct 88 mg/dL
[2023-08-15 18:34] LABS: Prostate Specific Antigen 0.5 ng/mL (< OR = 4.0)
[2023-08-15 19:06] LABS: Hemoglobin A1C 8.8 % (<5.7)
== END 2023-08-15 17:26 | disposition home or self-care (01) ==
LOC: ANHLAB 17:26
PROVIDERS: PCP Nurse Practitioner; Visit Provider Nurse Practitioner
DX: Z12.5 Encounter for screening for malignant neoplasm of prostate (principal); R06.09 Other forms of dyspnea; E11.9 Type 2 diabetes mellitus without complications
CPT/HCPCS: 36415; 80053; 80061; 83036; 84153; 84443; 85025; G0103

== ENCOUNTER 2024-02-20 14:32 | Outpatient (CLI) | payer MEDICARE, SELFPAY ==
[2024-02-20 19:44] LABS: Alanine Aminotransferase 43 U/L (6-50); Albumin Level 4.4 g/dL (3.5-5.1); Alkaline Phosphatase 75 U/L (38-126); Anion Gap 8 mmol/L (4-12); Aspartate Amino Transferase 41 U/L (17-59); Bilirubin,Total 0.7 mg/dL (0.2-1.3); Blood Urea Nitrogen 12 mg/dL (9-20); Calcium 9.5 mg/dL (8.4-10.2); Carbon Dioxide 30 mmol/L (22-30); Chloride 103 mmol/L (98-107); Estimated Glomerular Filt Rate > 60; Glucose 143 mg/dL (65-110); Potassium 4.8 mmol/L (3.4-5.0); Sodium 141 mmol/L (137-145)
[2024-02-20 20:16] LABS: Hemoglobin A1C 6.4 % (<5.7)
== END 2024-02-20 14:33 | disposition home or self-care (01) ==
LOC: ANHGOSHLAB 14:34
PROVIDERS: PCP Nurse Practitioner; Visit Provider Nurse Practitioner
DX: E11.9 Type 2 diabetes mellitus without complications (principal)
CPT/HCPCS: 36415; 80053; 83036

== ENCOUNTER 2024-05-13 15:29 | Outpatient (CLI) | payer MEDICARE, SELFPAY ==
[2024-05-13 18:51] LABS: Basophils Percent Auto 0.5 % (0.2-1.2); Eosinophils Absolute Auto 0.2 K/mm3 (0-0.3); Hematocrit 44.1 % (42.0-52.0); Hemoglobin 14.9 g/dL (14.0-18.0); Immature Granulocyte Absolute 0.01 K/mm3 (0.00-0.031); Immature Granulocyte Percent A 0.1 % (0-0.5); Lymphocytes Absolute Auto 2.32 K/mm3 (0.9-3.2); Lymphocytes Percent Auto 29.1 % (18.3-44.2); Mean Corpuscular HGB Conc 33.8 g/dl (32-36); Mean Corpuscular Hemoglobin 28.8 pg (26-34); Mean Corpuscular Volume 85.1 fl (80-100); Mean Platelet Volume 9.6 fl (7.4-10.4); Monocytes Absolute Auto 0.5 K/mm3 (0.1-0.6); Monocytes Percent Auto 6.8 % (2.6-8.5); Neutrophils Absolute Auto 4.9 K/mm3 (1.3-6.7); Neutrophils Percent Auto 61.5 % (45.5-73.1); Platelet Count Result 344 k/mm3 (150-375); Red Blood Count 5.18 M/mm3 (4.6-6.20); Red Cell Distribution Width 13.1 % (11.5-14.5)
[2024-05-13 19:07] LABS: Cholesterol 157 mg/dL (0-200); HDL Direct 30 mg/dL; Triglycerides 304 mg/dL (<150)
[2024-05-13 19:10] LABS: Alanine Aminotransferase 40 U/L (6-50); Albumin Level 4.5 g/dL (3.5-5.1); Alkaline Phosphatase 95 U/L (38-126); Anion Gap 13 mmol/L (4-12); Aspartate Amino Transferase 43 U/L (17-59); Bilirubin,Total 0.9 mg/dL (0.2-1.3); Blood Urea Nitrogen 14 mg/dL (9-20); Calcium 9.7 mg/dL (8.4-10.2); Carbon Dioxide 28 mmol/L (22-30); Chloride 94 mmol/L (98-107); Estimated Glomerular Filt Rate > 60; Glucose 217 mg/dL (65-110); Potassium 3.7 mmol/L (3.4-5.0); Sodium 135 mmol/L (137-145)
[2024-05-13 19:19] LABS: LDL Cholesterol Direct 82 mg/dL
[2024-05-13 19:29] LABS: Hemoglobin A1C 9.5 % (<5.7)
[2024-05-13 19:35] LABS: Creatinine Urine 297.5 mg/dL
[2024-05-13 19:37] LABS: Prostate Specific Antigen 0.6 ng/mL (< OR = 4.0)
[2024-05-13 19:38] LABS: Thyroid Stimulating Hormone 0.944 uIU/mL (0.465-4.680)
[2024-05-13 19:58] LABS: Microalbumin Urine Random 419.5 mg/L (0-16.7)
[2024-05-14 13:43] LABS: Protein, Total 7.4 g/dL (6.1-8.1)
[2024-05-14 15:14] LABS: Abnormal Protein Band 1 0.2 g/dL (NONE DETECTED); Albumin 4.1 g/dL (3.8-4.8); Alpha 1 Globulin 0.3 g/dL (0.2-0.3); Beta 1 Globulin 0.5 g/dL (0.4-0.6); Gamma Globulin 1.1 g/dL (0.8-1.7)
[2024-05-15 08:34] LABS: ANA Pattern Nuclear, Speckled; Anti Nuclear Antibody Pattern Nuclear, Homogeneous
[2024-05-15 12:24] LABS: Red Blood Cell Folate 469 ng/mL RBC (>280)
[2024-05-16 23:13] LABS: Methylmalonic Acid 144 nmol/L (55-335)
[2024-05-17 09:13] LABS: Vitamin B1 9 nmol/L (8-30)
[2024-05-17 13:38] LABS: Vitamin D 1,25 (OH)2 Total 26 pg/mL (18-72); Vitamin D2 1,25 (OH)2 <8 pg/mL; Vitamin D3 1,25 (OH)2 26 pg/mL
[2024-05-18 20:08] LABS: Immunofixation, Serum Normal pattern.
== END 2024-05-13 15:30 | disposition home or self-care (01) ==
PROVIDERS: PCP Nurse Practitioner; Visit Provider Psychiatry & Neurology Neurology
DX: Z12.5 Encounter for screening for malignant neoplasm of prostate (principal); E78.5 Hyperlipidemia, unspecified; E11.42 Type 2 diabetes mellitus with diabetic polyneuropathy; E55.9 Vitamin D deficiency, unspecified; G57.30 Lesion of lateral popliteal nerve, unspecified lower limb; H53.8 Other visual disturbances; G62.9 Polyneuropathy, unspecified; N52.9 Male erectile dysfunction, unspecified; R41.82 Altered mental status, unspecified; G56.20 Lesion of ulnar nerve, unspecified upper limb; Z87.828 Personal history of other (healed) physical injury and trauma
CPT/HCPCS: 36415; 80053; 80061; 82043; 82607; 82652; 82747; 83036; 83921; 84153; 84155; 84165; 84425; 84443; 85025; 86038; 86039; 86334; G0103

== ENCOUNTER 2024-05-14 18:40 | Emergency (ER) | payer MEDICARE, SELFPAY ==
--- NOTE | ~2024-05-14 | XR_ITS ---
EXAMINATION: XR chest 2V Exam Date/Time: 05/14/2024 23:10 CDT HISTORY: sob Comparison: 05/13/2021, 07/14/2020. RESULT: Lines, tubes, and devices: Soft tissue anchor in the left humeral head. Lungs and pleura: Clear. Cardiomediastinal silhouette: Stable. Other: No acute osseous or upper abdominal finding. IMPRESSION: No acute cardiopulmonary process. Reviewed, dictated and finalized at location K.
--- NOTE | ~2024-05-14 | XR_ITS ---
EXAM: XR foot LT min 3V DATE: 05/14/2024 23:20 HISTORY: wounds, r/o osteo . COMPARISON: 01/26/2018. FINDINGS: Normal mineralization. No fracture or dislocation. No lytic or blastic lesion. Moderate guillen llux valgus. Mild degenerative change at the first MTP joint. Moderate degenerative change at multipl e midfoot joints. Stable mild widening of the second DIP joint. Achilles and plantar enthesopathy. Os sification of the plantar fascia. Accessory ossicles medial to the head of first metatarsal. No erosi on or periosteal change. Soft tissues within normal limits. IMPRESSION: No radiographic evidence of osteomyelitis. Reviewed, dictated and finalized at location K.
[2024-05-14 18:41] VITALS: BP 134/76; PULSE 78; RESP 18; TEMP 36.5; O2SAT 98
--- NOTE | 2024-05-14 23:04 | ED.WOUNDLAC ---
HPI - Wound/Laceration General Chief Complaint: Wound/Laceration Stated Complaint: wound to left foot Time Seen by Provider: 05/14/24 22:24 Source: patient Mode of arrival: ambulatory Limitations: no limitations History of Present Illness HPI narrative: Patient is a 53-year-old male, with past medical history of diabetes, polyneuropathy, who presents to the ED with c/o wounds to his L foot. Patient reports he has had a chronic wound to his medial left 1st toe for some time now. States it does not seem to be healing. Over the last few days, he feels the wound has worsened and has began noticing streaking redness up his foot. He does not have any sensation in his feet, denies significant pain. Denies fevers. Denies drainage. Patient reports his primary care doctor has been adjusting his diabetic medications to try to get his blood sugars down. His blood sugars have been in the 200s recently. Had labs drawn yesterday which showed a1c of 9.5%. Patient reports history of sepsis and wanted to be evaluated to ensure infection had not progressed yet. Related Data Home Medications Medication Instructions Recorded Confirmed aspirin 81 mg tablet,delayed 81 mg PO DAILY 10/24/19 03/13/24 release (Adult Low Dose Aspirin) cholecalciferol (vitamin D3) 125 125 mcg PO DAILY 08/26/22 03/13/24 mcg (5,000 unit) capsule zinc acetate 1 cap PO DAILY 08/26/22 03/13/24 semaglutide 3 mg tablet (Rybelsus) 3 mg PO DAILY 05/09/24 Allergies Allergy/AdvReac Type Severity Reaction Status Date / Time amitriptyline AdvReac Mild Sweating Verified 05/09/24 13:50 Review of Systems Review of Systems: CONSTITUTIONAL: Denies fever, chills, or sweats. SKIN: See HPI MUSCULOSKELETAL: See HPI. NEUROLOGIC: Denies headache, dizziness, numbness, or weakness. All systems reviewed & are unremarkable except as noted in HPI and below [facility] Past Medical History Medical History Abnormal ankle brachial index (CANDE) Appendix injury Removed Arthritis of left acromioclavicular joint Blurring of vision Bronchitis Bulging disc Cholecystectomy planned 2010 Constipation CTS (carpal tunnel syndrome) Diabetic polyneuropathy Diarrhea Erectile dysfunction Erectile dysfunction Essential hypertension Excessive daytime sleepiness Hearing loss Hepatic steatosis Hypercholesterolemia Hypertension Left rotator cuff tear Mental status alteration Migraine Mononucleosis MRSA (methicillin resistant Staphylococcus aureus) Peroneal neuropathy Pneumonia PTSD (post-traumatic stress disorder) Recurrent UTI Sleep apnea Syrinx Type 2 diabetes mellitus pt states last A1c was around january 2021 less than 7 Ulnar neuropathy at elbow Surgical History Surgical History H/O elbow surgery H/O shoulder surgery RIght H/O toe surgery Pins in left toe H/O uvulectomy H/O vasectomy History of ear surgery Right History of tonsillectomy Family History Family History Father Family history of diabetes mellitus in first degree relative Acute myocardial infarction Diabetes mellitus Family history of cardiovascular disease Mother Family history of diabetes mellitus in first degree relative Acute myocardial infarction Diabetes mellitus Family history of cardiovascular disease Sibling Family history of diabetes mellitus in first degree relative Other Cerebrovascular accident Family history of allergic disorder Family history of kidney disease Family history of malignant neoplasm Family history of tuberculosis Hypertension Social History Social History Social History: Caffeine-daily Smoking status: Never smoker Alcohol intake: current Alcohol use details: 2 beers monthly Substance use
[2024-05-14 23:07] LABS: Basophils Percent Auto 0.3 % (0.2-1.2); Eosinophils Absolute Auto 0.1 K/mm3 (0-0.3); Eosinophils Percent Auto 1.1 % (0-4.4); Hemoglobin 15.1 g/dL (14.0-18.0); Immature Granulocyte Absolute 0.03 K/mm3 (0.00-0.031); Immature Granulocyte Percent A 0.3 % (0-0.5); Lymphocytes Absolute Auto 2.64 K/mm3 (0.9-3.2); Lymphocytes Percent Auto 26.5 % (18.3-44.2); Mean Corpuscular HGB Conc 34.3 g/dl (32-36); Mean Corpuscular Hemoglobin 28.6 pg (26-34); Mean Corpuscular Volume 83.3 fl (80-100); Mean Platelet Volume 9.4 fl (7.4-10.4); Monocytes Absolute Auto 0.8 K/mm3 (0.1-0.6); Monocytes Percent Auto 8.3 % (2.6-8.5); Neutrophils Absolute Auto 6.3 K/mm3 (1.3-6.7); Neutrophils Percent Auto 63.5 % (45.5-73.1); Platelet Count Result 337 k/mm3 (150-375); Red Blood Count 5.28 M/mm3 (4.6-6.20); Red Cell Distribution Width 13.1 % (11.5-14.5)
[2024-05-14 23:27] LABS: Lactic Acid Reflex 2.1 mmol/L (0.7-2.0)
[2024-05-14 23:29] LABS: Alanine Aminotransferase 38 U/L (6-50); Albumin Level 4.8 g/dL (3.5-5.1); Alkaline Phosphatase 90 U/L (38-126); Anion Gap 15 mmol/L (4-12); Aspartate Amino Transferase 38 U/L (17-59); Bilirubin,Total 0.5 mg/dL (0.2-1.3); Blood Urea Nitrogen 15 mg/dL (9-20); CRP 1.2 mg/dL (<1.0); Carbon Dioxide 25 mmol/L (22-30); Chloride 92 mmol/L (98-107); Estimated CRCL calculation 122 ml/min; Estimated Glomerular Filt Rate > 60; Glucose 227 mg/dL (65-110); Potassium 3.9 mmol/L (3.4-5.0); Sodium 132 mmol/L (137-145)
[2024-05-14 23:31] LABS: Erythrocyte Sedimentation Rate 12 mm/hr (0-20)
[2024-05-15] MEDS: CEPHALEXIN 500 MG CAPSULE PO (00:48)
[2024-05-15] MEDS: DOXYCYCLINE HYCLATE 100 MG TABLET PO (00:48)
[2024-05-15 00:52] VITALS: BP 130/84; PULSE 77; RESP 16; O2SAT 100
[2024-05-15 02:21] LABS: Reflex Lactic Acid Yes or No Add Lactic
== END 2024-05-15 00:52 | disposition home or self-care (01) ==
PROVIDERS: Emergency Provider Physician Assistant; PCP Nurse Practitioner
DX: L97.529 Non-pressure chronic ulcer of other part of left foot with unspecified severity (principal); L03.116 Cellulitis of left lower limb; E11.621 Type 2 diabetes mellitus with foot ulcer; I10 Essential (primary) hypertension
CPT/HCPCS: 36415; 71046; 73630; 80053; 83605; 85025; 85652; 86140; 87040; 99284; A9270

== ENCOUNTER 2024-06-14 10:42 | Outpatient (CLI) | payer MEDICARE, SELFPAY ==
--- NOTE | ~2024-06-14 | MR_ITS ---
EXAMINATION: MR brain/brain stem wo con DATE: 06/14/2024 11:24 INDICATION: Personal history of either healed or possibly injury. Progressive unsteady gait, dizzines s, cognitive issues and generalized headaches. TECHNIQUE: Magnetic resonance imaging (MRI) of the brain and brainstem was performed without intraven ous contrast. Sequences included sagittal and axial T1-weighted SE, axial diffusion-weighted FS SE, a xial T2*-weighted GRE, axial T2-weighted FLAIR, and axial T2-weighted FSE. Apparent diffusion coeffic ient (ADC) maps were created. COMPARISON: 11/26/2021 FINDINGS: There are no areas of restricted diffusion to suggest acute infarction. No intracranial hemorrhage or abnormal intracranial mass lesion. There are a few scattered foci areas of nonspecific increased T2- weighted signal intensity in the cerebral white matter which is within normal limits for age and like ly sequela of chronic small vessel ischemic disease. There are no intraparenchymal signal abnormaliti es seen on the other pulse sequences. The ventricles are symmetric and normal in size. There are no a bnormal extra-axial fluid collections. Flow voids are seen in the cerebral arteries on the T2-weighte d sequences consistent with their expected patency. Minimal fluid in the mastoids. Mucous retention c yst in the right maxillary sinus. Visualized orbits and soft tissues are unremarkable. IMPRESSION: 1. Normal aging brain with a few small scattered foci of white matter T2 hyperintensity which is with in normal limits for age and likely sequela of chronic small vessel ischemic disease. Reviewed, dictated and finalized at location A. IMPRESSION: 1. Normal aging brain with a few small scattered foci of white matter T2 hyperi ntensity which is within normal limits for age and likely sequela of chronic sm all vessel ischemic disease.
== END 2024-06-14 10:43 ==
LOC: MICIMG 10:43
PROVIDERS: PCP Nurse Practitioner; Visit Provider Psychiatry & Neurology Neurology
DX: Z87.828 Personal history of other (healed) physical injury and trauma (principal)
CPT/HCPCS: 70551

== ENCOUNTER 2024-07-02 15:49 | Outpatient (CLI) | payer MEDICARE, SELFPAY ==
[2024-07-02 16:03] LABS: Basophils Absolute Auto 0.1 K/mm3 (0.0-0.1); Basophils Percent Auto 0.9 % (0.2-1.2); Eosinophils Absolute Auto 0.8 K/mm3 (0-0.3); Eosinophils Percent Auto 8.1 % (0-4.4); Hematocrit 43.7 % (42.0-52.0); Hemoglobin 14.7 g/dL (14.0-18.0); Immature Granulocyte Absolute 0.02 K/mm3 (0.00-0.031); Immature Granulocyte Percent A 0.2 % (0-0.5); Lymphocytes Percent Auto 31.2 % (18.3-44.2); Mean Corpuscular HGB Conc 33.6 g/dl (32-36); Mean Corpuscular Hemoglobin 28.2 pg (26-34); Mean Corpuscular Volume 83.7 fl (80-100); Mean Platelet Volume 8.9 fl (7.4-10.4); Monocytes Absolute Auto 0.8 K/mm3 (0.1-0.6); Monocytes Percent Auto 8.4 % (2.6-8.5); Neutrophils Absolute Auto 4.8 K/mm3 (1.3-6.7); Neutrophils Percent Auto 51.2 % (45.5-73.1); Platelet Count Result 354 k/mm3 (150-375); Red Blood Count 5.22 M/mm3 (4.6-6.20); Red Cell Distribution Width 13.1 % (11.5-14.5); White Blood Count 9.3 K/mm3 (4.5-10.0)
[2024-07-02 16:44] LABS: Alanine Aminotransferase 30 U/L (6-50); Albumin Level 4.7 g/dL (3.5-5.1); Alkaline Phosphatase 88 U/L (38-126); Anion Gap 10 mmol/L (4-12); Aspartate Amino Transferase 42 U/L (17-59); Bilirubin,Total 0.8 mg/dL (0.2-1.3); Blood Urea Nitrogen 12 mg/dL (9-20); Calcium 9.8 mg/dL (8.4-10.2); Carbon Dioxide 30 mmol/L (22-30); Chloride 98 mmol/L (98-107); Estimated Glomerular Filt Rate > 60; Glucose 183 mg/dL (65-110); Sodium 138 mmol/L (137-145)
[2024-07-02 16:48] LABS: Immunoglobulin A 252 mg/dL (70-400); Immunoglobulin G 1026 mg/dL (700-1600); Immunoglobulin M 80 mg/dL (40-230)
[2024-07-04 11:49] LABS: Kappa\\Lambda Light Chains 1.17 (0.26-1.65); Lambda Light Chain 19.4 mg/L (5.7-26.3)
[2024-07-04 18:38] LABS: Protein, Total 7.8 g/dL (6.1-8.1)
[2024-07-05 16:03] LABS: Albumin 4.4 g/dL (3.8-4.8); Alpha 1 Globulin 0.3 g/dL (0.2-0.3); Beta 1 Globulin 0.6 g/dL (0.4-0.6)
== END 2024-07-02 15:50 | disposition home or self-care (01) ==
LOC: ANHLAB 15:52
PROVIDERS: PCP Nurse Practitioner; Visit Provider Internal Medicine Hematology & Oncology
DX: D72.9 Disorder of white blood cells, unspecified (principal)
CPT/HCPCS: 36415; 80053; 82784; 83883; 84155; 84165; 85025

== ENCOUNTER 2024-07-31 09:00 | Outpatient (CLI) | payer MEDICARE, SELFPAY ==
--- NOTE | 2024-09-01 21:16 | P.SLEEP_ITS ---
Sleep Study Date of Study: 07/31/24 Ordering Provider: Arnold Mason APRN Interpreting Physician: Angelika Toure MD Sleep Study Type: Polysomnogram Height: 1.85 m Weight: 129.727 kg Body Mass Index: 37.7 Neck Circumference (inches): 18 [place]: 5 Reason for Sleep Study Hypersomnia Sleep History Julio Jin is a 54-year-old man with a history of obstructive sleep apnea years ago, did not find using CPAP helpful, said that he was frequently tangled up in the tubing. He was referred for a sleep evaluation by his neurologist because he has a long history of restless legs syndrome, neuropathy and pain and tingling as well as intrusive thoughts which interrupt falling asleep. Often when he dozes off for 10 or 15 minutes his body Aks like he has been asleep for several hours which he attributes to his PTSD. He worries about everything all the time. 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 He has a hard time falling asleep and he wakes up frequently during the night. He always has excessive daytime sleepiness. He has been seen by a psychiatrist for other reasons, also his been managed by his primary care, chiropractor, salvager helper and counselor. He occasionally awakens at night with heartburn, belching or coughing. He occasionally snores but rarely loudly enough that others complain about it. He occasionally has difficulty sleeping when he has a cold. Occasionally wakes up gasping for breath at night. Occasionally has breathing problems at night observed by others. He occasionally sweats excessively at night and occasionally notices his heart pounding or beating irregularly at night. Occasionally falls asleep during the day, never involuntarily and never while driving. He occasionally has loss of muscle tone with strong emotion. He occasionally has daytime difficulties due to excessive sleepiness. He never feels paralyzed on waking or falling asleep. He frequently has vivid dreamlike scenes upon awakening or falling asleep. He occasionally feels afraid to go to sleep. He occasionally has nightmares. He frequently remembers his dreams. He constantly has racing thoughts. He frequently feels sad or depressed. He occasionally has anxiety. He occasionally notices parts her body jerking. He frequently kicks at night and frequently has crawling aching feelings in his leg s. He frequently has leg pain at night. He rarely has morning jaw pain. He he rarely grinds his teeth during sleep. He frequently is bothered by pain during the day and frequently awakened by pain at night. He constantly wakes up feeling stiff in the morning with sore or achy muscles as well as constantly awakens with pain in the neck and spine. He has headaches, palpitations, depression. He uses prescription drugs and marijuana. He has concentration difficulties, dizziness fatigue and sexual problems. He takes antacids regularly. Normal bedtime is between 4 and 7:00 a.m., and the amount of time to fall asleep varies however he usually waits until he is worn out in order to try to go to sleep. He definitely awakens between 2 and 3 times during the night. These nighttime awakenings last between 10 and 20 minutes. When he awakens at night, he checks the house, he checks the doors windows and looks at his phone. He does not have a set wake-up time. He estimates getting between 2 and 6 hours of sleep at night. He is up most of the time at night while the rest of the world sleeps. He does physical exercise before bedtime, very light exercise at times. He he rarely takes naps during the day. He may feel refreshed after short 10- 15 minute nap. He is usually drowsy for 2 hours after waking. 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 Habits:: Tobacco : none Caffeine: 30-44 oz per day Alcohol: Very rarely Recreational substances: 2-4 times per week he uses marijuana/vaping or edibles [facility] Past Medical History Medical History (Updated 09/02/24 @ 10:53 by Angelika Toure MD) Abnormal ankle brachial index (CANDE) Abnormal serum protein electrophoresis Appendix injury Removed Arthritis of left acromioclavicular joint Blurring of vision Bronchitis Bulging disc Cholecystectomy planned 2010 Constipation CTS (carpal tunnel syndrome) Diabetic polyneuropathy Diarrhea Erectile dysfunction Erectile dysfunction Essential hypertension Excessive daytime sleepiness Hearing loss Hepatic steatosis Hypercholesterolemia Hypertension Left rotator cuff tear Mental status alteration Migraine Mononucleosis MRSA (methicillin resistant Staphylococcus aureus) Obstructive sleep apnea Peroneal neuropathy Pneumonia Positive TORI (antinuclear antibody) PTSD (post-traumatic stress disorder) Recurrent UTI Restless legs syndrome Syrinx Type 2 diabetes mellitus pt states last A1c was around january 2021 less than 7 Ulnar neuropathy at elbow Surgical History Surgical History H/O elbow surgery H/O shoulder surgery RIght H/O toe surgery Pins in left toe H/O uvulectomy H/O vasectomy History of ear surgery Right History of tonsillectomy Family History Family History Father Family history of diabetes mellitus in first degree relative Acute myocardial infarction Diabetes mellitus Family history of cardiovascular disease Mother Family history of diabetes mellitus in first degree relative Acute myocardial infarction Diabetes mellitus Family history of cardiovascular disease Sibling Family history of diabetes mellitus in first degree relative Other Cerebrovascular accident Family history of allergic disorder Family history of kidney disease Family history of malignant neoplasm Family history of tuberculosis Hypertension Social History Social History Social History: Caffeine-daily Smoking status: Never smoker Alcohol intake: current Alcohol use details: 2 beers monthly Substance use: current Substance use type: marijuana Other substance usage details: edibles Do You Feel Safe in your Home?: Yes Lack of Transportation: No Lack of Food: Never True Current Housing: I Have Housing Concerned About Future Housing: No Difficulty Paying for Meds: YES Education: Associate Degree Difficulty w/ Childcare or Family Care: No Living arrangements: with family Gender identity (if verbalized by the patient): Male Spiritual care concerns: No Medications Home Medications Medication Instructions Recorded Confirmed Type aspirin 81 mg tablet,delayed 81 mg PO DAILY 10/24/19 08/15/24 History release (Adult Low Dose Aspirin) cholecalciferol (vitamin D3) 125 125 mcg PO DAILY 08/26/22 08/15/24 History mcg (5,000 unit) capsule zinc acetate 1 cap PO DAILY 08/26/22 08/15/24 History sildenafil 50 mg tablet 50 mg PO DAILY PRN sexual activity 03/13/24 07/10/24 Rx #20 tabs lisinopril 40 mg tablet 40 mg PO DAILY #90 tabs 04/04/24 08/15/24 Rx amlodipine 10 mg tablet 10 mg PO DAILY #90 tabs 05/03/24 08/15/24 Rx atorvastatin 40 mg tablet 40 mg PO DAILY #90 tabs 05/03/24 08/15/24 Rx metformin 1,000 mg tablet 1,000 mg PO BID #180 tabs 05/03/24 08/15/24 Rx blood sugar diagnostic (Accu-Chek #100 ea 05/13/24 06/19/24 Rx Guide test strips) blood-glucose meter (Accu-Chek #1 ea 05/13/24 06/19/24 Rx Guide Glucose Meter) omeprazole 40 mg capsule,delayed 40 mg PO DAILY PRN Indigestion #90 07/01/24 08/15/24 Rx release caps glipizide 10 mg tablet 10 mg PO BID #180 tabs 07/24/24 08/15/24 Rx hydrochlorothiazide 25 mg tablet 25 mg PO DAILY #90 tabs 08/09/24 08/15/24 Rx clonidine HCl 0.1 mg tablet 0.1 mg PO DAILY 08/15/24 08/15/24 History meclizine 25 mg tablet 25 mg PO BID PRN Dizziness #30 tabs 08/15/24 08/15/24 Rx turmeric 1 cap PO DAILY 08/15/24 08/15/24 History insulin glargine 100 unit/mL (3 18 unit (0.18 mL) subcut QPM #15 mL 09/02/24 Rx mL) subcutaneous pen (Lantus Solostar U-100 Insulin) Sleep Procedure A full night polysomnogram using the Watchwith multi-channel system recorded the standard physiologic parameters including EEG, EOG, submentalis EMG, anterior tibialis EMG, EKG, body position, nasal and oral airflow using nasal pressure sensor and thermistor. Respiratory parameters of chest and abdominal movements were recorded with Respiratory Inductance Plethysmography belts. Oxygen saturation was recorded by pulse oximetry. Video monitoring was also performed. Sleep stages, periodic limb movements, and EEG arousals were scored in 30 second epochs according to the criteria of the AASM Scoring Manual. The Apnea-Hypopnea Index was calculated using CMS guidelines for definition of hypopnea while scoring respiratory events. The patient self-administered Lunesta 2 mg at the beginning of the study. Sleep Architecture The total recording time was 440.3 minutes. The total sleep time was 409.5 minutes. Sleep latency was 0.8 minutes. REM latency was 127.0 minutes. Sleep efficiency was 93.0%. The patient had 27 awakenings for an awakening index of 4.0. Wake after sleep onset time was 30.5 minutes. The patient spent 34.0 minutes, 8.3% of total sleep time in Stage N1. The patient spent 307.0 minutes, 75.0% in Stage N2. The patient spent 11.0 minutes, 2.7% in Stage N3. The patient spent 57.5 minutes, 14.0% in Stage REM sleep. Sleep was fragmented in the 1st 3rd of the night. Sleep was more consolidated toward the end of the night. Limb movements were more dense in the last 3rd of the night. Respiratory Analysis The patient had 17 hypopneas, 3 obstructive apneas, - mixed apneas, and - central apneas for an overall Apnea Hypopnea Index of 2.9. The REM Apnea Hypopnea Index was 16.7. The NREM Apnea Hypopnea Index was 0.9. The patient had a Central Apnea Hypopnea Index of -. There were - Respiratory Effort Related Arousals resulting in a RERA index of - events per hour. The Respiratory Disturbance Index is 4.2 events per hour. There was no evidence of Salvador-Potts Respirations. Arousals There were 69 total arousals for an arousal index of 10.1. There were 45 spontaneous arousals for an index of 6.6. There were 5 arousals due to respiratory events for an index of 0.7. There were 4 arousals due to periodic limb movements for an index of 0.6. There were 15 arousals due to isolated limb movements for an index of 2.2. Periodic Limb Movements The patient had 18 isolated limb movements with an index of 2.6. The patient had 52 periodic limb movements with an index of 7.6. Patient had a total of 70 limb movements with a total limb movement index of 10.3. Oximetry Data The patient had an average oxygen saturation of 91.7% in sleep with a minimum oxygen saturation of 76% and a maximum oxygen saturation of 97%. The patient had 24 oxygen desaturations that were 4% or greater resulting in an Oxygen Desaturation Index of 3.5. The patient spent 6 minutes, 1.4% of total sleep time with an oxygen saturation below 88%. Snoring Profile Snoring was mild during the study. Cardiac Profile EKG showed normal sinus rhythm, average pulse rate of 58.0 bpm with a minimum pulse of rate of 49 bpm and a maximum pulse rate of 89 bpm.? No arrhythmias noted. EEG Profile Unremarkable, no evidence of seizures. Assessment and Plan Assessment and Plan (1) Obstructive sleep apnea: Code(s): G47.33 - Obstructive sleep apnea (adult) (pediatric) Status: Acute Assessment and Plan: This basic nocturnal polysomnogram on July 31, 2024 shows mild obstructive sleep apnea using the AASM 3% criteria with an apnea-hypopnea index of 5.0. He using the CMS criteria with a 4% desaturation index, the apnea-hypopnea index was 2.9. This patient has known obstructive sleep apnea from a prior test. The patient desaturated to 76% which is significantly decreased, with 6 minutes below 88%, 1.4% of the study which is abnormal. Consider evaluation for pulmonary disease. The supine REM apnea-hypopnea index is 42. He meets criteria for treatment. He failed CPAP in the past. This does not mean that he could not use CPAP currently however he is a candidate for evaluation by a sleep dentist for a mandibular device to treat mild obstructive sleep apnea. The goal of treatment is to eliminate obstructive events and hypoxemia as well as to improve quality of sleep which will improve daytime functioning. He gives a history of jaw dickey and rare grinding teeth. Treating obstructive sleep apnea may improve these symptoms. BMi is 37.7. Weight management is advised. Clinical data suggests that weight loss of 10% can reduce the severity of respiratory events and snoring and improve AHI by as much as 25%. (2) Restless legs syndrome: Code(s): G25.81 - Restless legs syndrome Status: Acute Assessment and Plan: The patient has diabetes mellitus which is a comorbidity associated with nocturnal limb movements and restless legs syndrome. He has a long history res tless legs syndrome with polyneuropathy and leg pain. He had intermittent limb movements during the night but he did not have significant limb movements that caused arousals. He does not have periodic limb movement disorder. Ferritin level is indicated to exclude iron deficiency anemia as a contributing factor. Ferritin should be 75 ng/mL or greater. If ferritin is below this, iron supplementation should be given to achieve ferritin of 75 ng/mL. There are nonpharmacologic methods to treat his RLS symptoms including daily exercise, stretching calf muscles before bed, avoiding excessive amounts of caffeine and alcohol, vitamin B supplementation, magnesium lotion massaged into legs before bed, and use of a weighted blanket. Pharmacologic therapy is very effective for restless legs syndrome and limb movements during sleep and may include [id number] voltage-gated calcium channel ligands such as gabapentin which is preferable to dopaminergic agents which can have augmentation. Other treatments can include opioids and benzodiazepines. (3) Inadequate sleep hygiene: Code(s): Z72.821 - Inadequate sleep hygiene Status: Acute Assessment and Plan: The patient is not keep regular sleep schedule. This may be contributing to his disrupted sleep in addition to his mood disorder, PTSD and possible circadian rhythm disorder. The regular use of marijuana and similar substances can lead to fragmented sleep. I would recommend against using marijuana as a sleep aid. Recommendations to improve sleep quality include: ? Practice a bedtime routine and keep the same sleep schedule including bedtime and wake up time, even on the weekends. Consistency makes it much easier to fall asleep and wake easily. ? If you have trouble sleeping at night, avoid naps, especially in the late afternoon. However, short naps lasting approximately 20 minutes can help alleviate daytime fatigue, sleepiness, and even provide cognitive benefit. Naps longer than 30 minutes can cause sleep inertia, a period of reduced alertness and cognitive performance after waking. ? Exercise daily. ? Maintain a sleep environment conducive to sleep. The bedroom should be comfortably cool. In population studies, nocturnal environmental light and noise significantly impact sleep quality and quantity. Use of blackout curtains, ear plugs, or sound machines may help promote an optimal sleep environment for individuals with sleep disruptions due to environmental stimuli. ? Sleep on a comfortable mattress and pillows. ? Regular bright light exposure in the mornings may help to maximize alertness and maintain a regular circadian rhythm. Studies in extreme latitudes where sunlight is minimal in the winter have found that an hour of exposure to white light in the morning helped subjects go to sleep earlier and wake earlier. Exposure to blue light in the morning may have more robust effects on the stability of the circadian rhythm and has been shown to improve daytime fatigue and sleepiness. ? Avoid cigarettes, caffeine, and heavy meals in the evening. While alcohol use does seem to reduce the time it takes to fall asleep, studies have reported that evening alcohol intake can cause more waking time or light sleep in the second half of the night and reduce self-reported sleep quality. Evening nicotine is associated with lower sleep efficiency and more awake time during the night. ? Wind down with quiet activities that may promote sleep, such as reading with a dim light. Avoid use of electronics at least 30 minutes before habitual bedtime and in the middle of the night if nocturnal awakenings occur. The blue light emitted from computer screens and hand-held devices can suppress natural melatonin production, resulting in difficulty falling asleep; however, the exact duration of use and intensity of lighting that cause this effect are variable in the literature. ? If you cannot sleep, do not look at a clock. Go into another room and do something relaxing until you feel drowsy enough to fall asleep again. Then return to bed. Data The data obtained during this sleep study is adequate for interpretation. Certification This sleep study has been reviewed by a board certified sleep medicine physician.
[2024-09-02 10:59] VITALS: BMI 37.7
== END 2024-08-01 06:56 | disposition home or self-care (01) ==
LOC: ANHCSM 09:00
PROVIDERS: PCP Nurse Practitioner; Visit Provider Nurse Practitioner Family
DX: G47.33 Obstructive sleep apnea (adult) (pediatric) (principal)
CPT/HCPCS: 95810

== ENCOUNTER 2024-08-15 14:06 | Outpatient (CLI) | payer MEDICARE, SELFPAY ==
[2024-08-15 20:03] LABS: Creatinine Urine 138.4 mg/dL
[2024-08-15 20:04] LABS: Anion Gap 10 mmol/L (4-12); Blood Urea Nitrogen 20 mg/dL (9-20); Carbon Dioxide 28 mmol/L (22-30); Chloride 98 mmol/L (98-107); Estimated Glomerular Filt Rate > 60; Glucose 136 mg/dL (65-110); Potassium 4.4 mmol/L (3.4-5.0); Sodium 136 mmol/L (137-145)
[2024-08-15 20:06] LABS: MALB Creatinine Ratio 11.5 mg/g (0-30); Microalbumin Urine Random 15.9 mg/L (0-16.7)
[2024-08-15 21:11] LABS: Hemoglobin A1C 8.7 % (<5.7)
== END 2024-08-15 14:07 | disposition home or self-care (01) ==
LOC: ANHGOSHLAB 14:09
PROVIDERS: PCP Nurse Practitioner; Visit Provider Clinical Nurse Specialist
DX: E11.42 Type 2 diabetes mellitus with diabetic polyneuropathy (principal)
CPT/HCPCS: 36415; 80048; 82043; 82607; 83036

== ENCOUNTER 2024-09-21 13:31 | Outpatient (CLI) | payer MEDICARE, SELFPAY ==
--- NOTE | ~2024-09-21 | MR_ITS ---
EXAMINATION: MR knee LT wo con DATE: 09/21/2024 14:25 INDICATION: M25.569 - Pain in unspecified knee TECHNIQUE: Magnetic resonance imaging (MRI) of the left knee was performed without intravenous contra st. Sequences included axial PD-weighted FS FSE, coronal PD-weighted FSE and PD-weighted FS FSE, sagi ttal PD-weighted FSE, and sagittal T2-weighted FS FSE. COMPARISON: None. FINDINGS: Medial compartment: Mild diffuse cartilage thinning. Meniscus intact. Mild osteophytosis. Lateral compartment: Small apical tear of the meniscal body. Mild osteophytosis. Patellofemoral compartment: Mild diffuse cartilage thinning with multifocal areas of partial-thickness signal abnormality. Mild l ateral patellar subluxation. Retinacula intact. Mild osteophytosis. Ligaments and tendons: The ACL, PCL, MCL, and LCL are intact. Remaining flexor and extensor tendons are intact. Fluid: Small volume joint fluid. Small Pride's cyst. Osseous/other: Minimal marrow edema in the posterior and medial aspect of the medial tibial plateau and laterally ad jacent to the fibular articulation. IMPRESSION: Small apical tear of the body of the lateral meniscus. Multifocal areas of mild proximal tibial marrow edema. Tricompartmental osteoarthritis. Reviewed, dictated and finalized at location K. F TECHNOLOGIST
== END 2024-09-21 13:32 | disposition home or self-care (01) ==
PROVIDERS: PCP Nurse Practitioner; Visit Provider Nurse Practitioner
DX: M17.12 Unilateral primary osteoarthritis, left knee (principal); S83.282A Other tear of lateral meniscus, current injury, left knee, initial encounter; X58.XXXA Exposure to other specified factors, initial encounter
CPT/HCPCS: 73721

== ENCOUNTER 2024-12-13 08:28 | Outpatient (CLI) | payer MEDICARE, SELFPAY ==
--- OUTSIDE RECORDS SUMMARY | 2024-12-13 08:44 | XMS_ITS | Referral Summary ---
Author Organization [facility] Medical Office Building [address] Address [address] [place] [address] Care Team Providers Care Candy Rolling Machine Operator Name Role Phone Ricki Wood DO Primary Care Provider [phone]- [phone] Allergies No known active allergies Medications aspirin 81 mg enteric coated tabletIndications:C erebral Thromboembolism Prevention Take 81 mg by mouth daily Active ascorbic acid (VITAMIN C) 500 mg tablet,chewableIndi cations:Vitamin C Deficiency Take 500 mg by mouth daily Active cholecalciferol (VITAMIN D-3) 25 mcg (1,000 unit) tabletIndications:V itamin D Deficiency Take 1,000 Units by mouth daily Active vitamin E (AQUASOL E) 400 unit capsuleIndications: prevention of deficiency Take 400 Units by mouth daily Active omeprazole (PriLOSEC) 40 mg capsuleIndications: Stress Ulcer Prophylaxis Take 40 mg by mouth as needed Active metFORMIN (GLUCOPHAGE) 1,000 mg tabletIndications:t ype 2 diabetes mellitus Take 1,000 mg by mouth 2 (two) times a day with meals Active glipiZIDE (GLUCOTROL) 5 mg tabletIndications:t ype 2 diabetes mellitus Take 5 mg by mouth daily Active atorvastatin (LIPITOR) 40 mg tabletIndications:h yperlipidemia Take 40 mg by mouth daily Active zinc 50 mg tabletIndications:Z inc Deficiency Take 50 mg by mouth daily Active coconut oil 1,000 mg capsuleIndications: skin health Take 1,000 mg by mouth daily Active potassium 99 mg tabletIndications:h ypokalemia prevention Take 99 mg by mouth 3 (three) times a week F Active lisinopriL (PRINIVIL,ZESTRIL) 40 mg tabletIndications:h ypertension Take 40 mg by mouth daily Active hydroCHLOROthiazide (HYDRODIURIL) 25 mg tablet Take 25 mg by mouth daily 06/23/20 21 Active gabapentin (NEURONTIN) 600 mg tablet Take 600 mg by mouth as needed Active cloNIDine (CATAPRES) 0.1 mg tabletIndications:h ypertension Take 0.1 mg by mouth 2 (two) times a day 01/25/20 22 Active amLODIPine (NORVASC) 10 mg tabletIndications:h ypertension Take 10 mg by mouth daily 01/22/20 22 Active medical cannabis each 1 Dose as needed Act ching docusate sodium (COLACE) 100 mg capsuleIndications: constipation Take 1 capsule (100 mg total) by mouth 2 (two) times a day as needed for constipation (while taking narcotics) 30 capsule 1 02/26/20 22 Active oxyCODONE (ROXICODONE) 5 mg immediate release tabletIndications:P ain 1-2 tablets q4-6 hours PRN pain 40 tablet 02/26/20 22 Active cyclobenzaprine (FLEXERIL) 10 mg tabletIndications:M uscle Spasm Take 1 tablet (10 mg total) by mouth 2 (two) times a day as needed for muscle spasms 12 tablet 05/06/20 23 Active HYDROcodone-acetami nophen (NORCO) 5-325 mg per tabletIndications:P ain Take 1-2 tablets by mouth every 4 (four) hours as needed for pain 20 tablet 05/06/20 23 Active naproxen (NAPROSYN) 500 mg tablet Take 1 tablet (500 mg total) by mouth 2 (two) times a day with meals 30 tablet 09/05/20 24 Active methocarbamoL (ROBAXIN) 500 mg tablet Take 1 tablet (500 mg total) by mouth 2 (two) times a day 20 tablet 09/05/20 24 Active Active Problems Problem Noted Date Diagnosed Date Nontraumatic complete tear of left rotator cuff 02/14/2022 Overview (02/14/2022): Added automatically from request for surgery [id number] Cellulitis of toe of left foot 08/03/2021 RACHEL (acute kidney injury) 08/03/2021 Diabetic ulcer of toe of lef t foot associated with type 2 diabetes mellitus, with bone involvement without evidence of necrosis (CMS/HCC) 08/11/2019 Assessment & Plan (08/11/2019 11:22 PM CDT): Status post rupture. Minimal cellulitis surrounding open ulcer. Elevated ESR and CRP. MRI was ordered to rule out osteo. Patient was having fevers up to 101.7 with chills a few days prior. Currently on Vanco and Unasyn which has been continued. Will also consult wound care. Continue to monitor. Type 2 diabetes mellitus, [facility] long-term current use of insulin 08/11/2019 Assessment & Plan (08/11/2019 11:20 PM CDT): Patient only on metformin at home. Sugars are controlled. Continue sliding scale coverage. PTSD (post-traumatic stress disorder) 08/11/2019 Assessment & Plan (08/11/2019 11:20 PM CDT): Continue Cymbalta Neuropathy 08/11/2019 Assessment & Plan (08/11/2019 11:23 PM CDT): Continue Cymbalta Goiter 05/14/2014 Overview (01/26/2017): Goiter Obstructive sleep apnea syndrome 04/01/2014 Overview (01/26/2017): MADINA (obstructive sleep apnea) Chronic back pain 04/01/2014 Overview (01/26/2017): Other chronic pain Morbid obesity (CMS/HCC) 04/01/2014 Overview (01/26/2017): Morbid obesity Dyspnea on exertion 04/01/2014 Overview (01/26/2017): Dyspnea on exertion Benign hypertension 04/01/2014 Overview (01/26/2017): HTN (hypertension), benign Assessment & Plan (08/11/2019 11:22 PM CDT): Home medications have been resumed with hold parameters. Continue monitor. Gastroesophageal reflux disease 04/01/2014 Overview (01/26/2017): GERD (gastroesophageal reflux disease) Immunizations Immunization Administration Dates Next Due Influenza, Quadrivalent, Spl it, Preservative Free, Intramuscular 08/13/2019,06/20/2017,07/31/2016 Influenza, Trivalent, IM (MDV) 08/21/2015 [employer] (J&J) SARS-CoV-2 Vaccination 08/03/2021( Deferred: Patient Refused) Pfizer SARS-CoV-2 Monovalent Vaccination (12+ Yrs) PURPLE 08/04/2021(Deferred: Patient Refused),08/03/2021(Deferred: Patient Refused) Tdap 05/01/2013 Social History Tobacco Use Types Packs/Day Years Used Date Smoking Tobacco: Never Smokeless Tobacco: Never Alcohol Use Standard Drinks/Week Comments Not Asked 0 (1 standard drink = 0.6 oz pur e alcohol) AUDIT-C Answer Date Recorded Q1: How often do you have a drink containing alc ohol? Monthly or less 02/25/2022 Q2: How many drinks containi ng alcohol do you have on a typical day when you are drinking? 1 or 2 02/25/2022 Q3: How often do you have si x or more drinks on one occasion? Never 02/25/2022 PHQ-2 Answer Date Recorded PHQ-2 Total Score (If total score is 3 or more points, staff should administer the PHQ-9) 1 08/05/2021 Personal Safety Answer Date Recorded Have you ever been in or are you currently in a harmful physical or emotional relationship or is someone making you feel afraid or unsafe? Denies 09/05/2024 Sex and Gender Information Value Date Recorded Sex Assigned at Not on file Legal Sex Male 3:14 AM AMBULANCE DRIVER PARAMEDIC Gender Identity Not on file Sexual Orientation Not on file Last Filed Vital Signs Vital Sign Reading Time Taken Comments Blood Pressure 138/69 09/05/2024 4:35 PM AMBULANCE DRIVER PARAMEDIC Pulse 79 09/05/2024 4:35 PM AMBULANCE DRIVER PARAMEDIC Temperature 36.4 C (97.6 F) 09/05/2024 4:35 PM AMBULANCE DRIVER PARAMEDIC Respiratory Rate 16 09/05/2024 4:35 PM AMBULANCE DRIVER PARAMEDIC Oxygen Saturation 99% 09/05/2024 4:35 PM AMBULANCE DRIVER PARAMEDIC Inhaled Oxygen Concentration - - Weight 130.6 kg (288 lb) 09/05/2024 4:35 PM AMBULANCE DRIVER PARAMEDIC Height 185.4 cm (6' 1 ) 09/05/2024 4:35 PM AMBULANCE DRIVER PARAMEDIC Body Mass Index 38 09/05/2024 4:35 PM AMBULANCE DRIVER PARAMEDIC Plan of Treatment Not on file Medical Devices Implanted Type Area Main Line Station Engineer Device Identifier Shelf Expiration Date Model / Serial / Lot [employer] Corkscrew Suturetape 5.5mm 14.7mm Bioabsorbable Full Thread 1.3mm Ar-[id number] - [id number] Implanted:Qty: 1 on 02/25/2022 by Oj Townsend MD at [facility] Left: Shoulder [employer] [id number] 06/22/2022 AR-1927BC T / / [id number] [employer] Ar-2324 Bcm Swivelock 4.75mm 24.5mm Self Punch Vent Shoulder [place] Suture - [id number] Implanted:Qty: 1 on 02/25/2022 by Oj Townsend MD at [facility] Left: Shoulder [employer] [id number] 09/21/2025 AR-2324BC M / / [id number] [employer] Ar-2324 Bcm Swivelock 4.75mm 24.5mm Self Punch Vent Shoulder [place] Suture - [id number] Implanted:Qty: 1 on 02/25/2022 by Oj Townsend MD at [facility] Left: Shoulder [employer] [id number] 09/21/2025 AR-2324BC M / / [id number] [employer] Set Implant Arthrex Fibertak Biceps Sterile Latex Free Ar-3670 - [id number] Implanted:Qty: 1 on 02/25/2022 by Oj Townsend MD at [facility] Left: Shoulder [employer] [id number] 03/22/2026 AR-3670 / / [id number] Procedures Procedure Name Priority Date/Time Associated Diagnosis Comments EGFR STAT 08/26/2023 11:57 PM CDT from Last 3 Months or Most Recently Relevant to Health Maintenance Results * eGFR (08/26/2023 11:57 PM CDT) eGFR 64 mL/min/1. 73 m2 [facility] ([place]) Comment: Interpretive Data Reference Interval Normal >/= 90 mL/min/1.73m2 Mildly decreased* 60 - 89 mL/min/1.73m2 Mildly to moderately decreased 45 - 59 mL/min/1.73m2 Moderately to severely decreased 30 - 44 mL/min/1.73m2 Severely decreased 15 - 29 mL/min/1.73m2 Kidney Failure < 15 mL/min/1.73m2 *Relative to young adult level Estimated glomerular filtration rate is determined by the 2020 CKD-EPI equation recommended by the National Kidney Foundation (A Unifying Approach to GFR Estimation: Recommendations of the NKF-ASK Task Force on Reassessing the Inclusion of Race in Diagnosing Kidney Disease, JASN 2020). The CKD-EPI equation should not be used for patients with unstable renal function and has not been validated in children and those over 70. Current interpretive data was last reviewed 2021. Blood 08/26/2023 11:5 7 PM CDT 08/27/2023 12:01 AM CDT Selina Simon MD LAB BLOOD ORDERABLES Dawn long Result [facility] ([place]) 1 [facility] Department [place] [address] from Last 3 Months or Most Recently Relevant to Health Maintenance Insurance AETNA [facility]ICARE [facility] ADVANTRA HUMANA CHOICE MEDICARE PPO Advance Directives For more information, please contact: [phone] Documents on File Type Date Recorded Patient Practical Ministries Professor Expl anation ADVANCE DIRECTIVE 08/13/2019 9:05 AM [place] Will ADVANCE DIRECTIVE 08/13/2019 9:07 AM Anne schumacher of [employer] Service Supervisor-Medical * Full Code (Latest Code Status on File) Date Activated Date Inactivated Comments 08/03/2021 2:58 PM 08/05/2021 9:04 PM * Full Code Date Activated Date Inactivated Comments 08/03/2021 4:55 AM 08/03/2021 2:58 PM * Full Code Date Activated Date Inactivated Comments 08/11/2019 11:19 PM 08/13/2019 11:01 PM Healthcare Agents on File Name Relationship Healthcare Agent Relationship Communication Belgica Backwith Significant Other First Alternat e Health Care Agent Care Teams Candy Rolling Machine Operator Relationship Specialty Start Date End Date Ricki Wood DO PCP - General 08/03/21
--- OUTSIDE RECORDS SUMMARY | 2024-12-13 08:44 | XMS_ITS | Clinical Summary ---
Author Organization [facility] Medical Office Building B Address [address] [place] [address] Care Team Providers Care Call Center Manager Name Role Phone Ricki Wood DO Primary Care Provider +1- [phone] Allergies No known active allergies Medications aspirin [...] (02/14/2022): Added automatically from request for surgery [id number] Cellulitis of toe of left foot 08/03/2021 [...] Continue to monitor. Type 2 diabetes mellitus, [facility] long-term current use of insulin 08/11/2019 [...] Intramuscular 08/13/2019,06/20/2017,07/31/2016 Influenza, Trivalent, IM (MDV) 08/21/2015 [employer] (J&J) SARS-CoV-2 Vaccination 08/03/2021( Deferred: Patient Refused) Pfizer SARS-CoV-2 Monovalent Vaccination (12+ Yrs) PURPLE 08/04/2021(Deferred: Patient Refused),08/03/2021(Deferred: Patient Refused) Tdap 05/01/2013 Surgical History Surgery Date Site/Laterality Comments APPENDECTOMY 10/23/1996 - 10/22/1997 FRACTURE SURGERY 10/23/2004 - 10/22/2005 Left great toe SKIN BIOPSY multiple CHOLECYSTECTOMY 10/23/2010 - 10/22/2011 SKIN SURGERY 2006, 2008 surgeries for MRSA TONSILLECTOMY 10/23/2007 - 10/22/2008 VASECTOMY 10/23/2007 - 10/22/2008 CARPAL TUNNEL RELEASE Left ELBOW SURGERY Left EAR SURGERY Right multiple ANKLE SURGERY Right ROTATOR CUFF REPAIR Right WISDOM TOOTH EXTRACTION TOENAIL EXCISION Bilateral ingrown toenail UPPER GASTROINTESTINAL ENDOSCOPY COLONOSCOPY multiple Medical History Medical History Date Comments Hypertension Diabetes mellitus (HCC) Neuropathy (CMS/HCC) Arthritis Thyroid disease Sleep apnea Awareness under anesthesia pt re ports waking up during surgery and was pulling on ETT tube, he reports surgery was over but tube was just not out, the tube was removed Delayed emergence from general anesthesia denies prolonged intubation or ICU admission Hard to intubate pt does not rec all details he does not recall every being told that there was difficulty getting the breathing tube in place PONV (postoperative nausea and vomiting) IV medications were helpful in past Family History Medical History Relation Name Comments Heart failure Father Congestive hea rt failure; Other Mother Cardiac arrhyth mias; Diabetes Sister Diabetes mellit us; Anesthesia problems Neg Hx Relation Name Status Comments Father (Age 62) Mother (Age 44) Sister Social History Tobacco Use Types Packs/Day Years [...] on file Legal Sex Male 3:14 AM PIN BALL MACHINE MECHANIC Gender Identity Not on file Sexual Orientation Not on file Obstetrics History Last Filed Vital Signs Vital Sign Reading Time Taken Comments Blood Pressure 138/69 09/05/2024 4:35 PM PIN BALL MACHINE MECHANIC Pulse 79 09/05/2024 4:35 PM PIN BALL MACHINE MECHANIC Temperature 36.4 C (97.6 F) 09/05/2024 4:35 PM PIN BALL MACHINE MECHANIC Respiratory Rate 16 09/05/2024 4:35 PM PIN BALL MACHINE MECHANIC Oxygen Saturation 99% 09/05/2024 4:35 PM PIN BALL MACHINE MECHANIC Inhaled Oxygen Concentration - - Weight 130.6 kg (288 lb) 09/05/2024 4:35 PM PIN BALL MACHINE MECHANIC Height 185.4 cm (6' 1 ) 09/05/2024 4:35 PM PIN BALL MACHINE MECHANIC Body Mass Index 38 09/05/2024 4:35 PM PIN BALL MACHINE MECHANIC Plan of Treatment Health Maintenance Due Date Last Done Comments Albumin Creatinine Ratio, Urine 1971 Colon Cancer Screening-Colonoscopy 1971 Hemoglobin A1C 1971 Hepatitis C Screening 1971 Prostate Cancer Screening-PSA 1971 Dilated Eye Exam 1971 Foot Exam 1971 Lipid Panel 1971 Hepatitis B Screening 1989 Regular Well Visit/Exam 18-64 1989 Pneumococcal vaccine <65 (1 of 2 - PCV) 1990 Zoster Vaccine (1 of 2) 2021 Depression Screening 08/02/2022 08/02/2021 DTaP/Tdap/Td Vaccine (2 - Td or Tdap) 05/01/2023 05/01/2013 Influenza Vaccine (#1) 2024 , 06/20/2017, 07/31/2016, Additional history exists eGFR 08/26/2024 08/26/2023, 06/2022, 08/05/2021, Additional history exists Medical Devices Implanted Type Area Appeals Board Referee Device Identifier Shelf Expiration Date Model / Serial / Lot [employer] Corkscrew Suturetape 5.5mm 14.7mm Bioabsorbable Full Thread 1.3mm Ar-[id number] - [id number] Implanted:Qty: 1 on 02/25/2022 by Oj Townsend MD at [facility] Left: Shoulder [employer] [id number] 06/22/2022 AR-1927BC T / / [id number] [employer] Ar-2324 Bcm Swivelock 4.75mm 24.5mm Self Punch Vent Shoulder [place] Suture - [id number] Implanted:Qty: 1 on 02/25/2022 by Oj Townsend MD at [facility] Left: Shoulder [employer] [id number] 09/21/2025 AR-2324BC M / / [id number] [employer] Ar-2324 Bcm Swivelock 4.75mm 24.5mm Self Punch Vent Shoulder [place] Suture - [id number] Implanted:Qty: 1 on 02/25/2022 by Oj Townsend MD at [facility] Left: Shoulder [employer] [id number] 09/21/2025 AR-2324BC M / / [id number] [employer] Set Implant Arthrex Fibertak Biceps Sterile Latex Free Ar-3670 - [id number] Implanted:Qty: 1 on 02/25/2022 by Oj Townsend MD at [facility] Left: Shoulder [employer] Inc [id number] 03/22/2026 AR-3670 / / [id number] Procedures Procedure Name Priority Date/Time Associated Diagnosis Comments EGFR STAT 08/26/2023 11:57 PM CDT from Last 3 Months or Most Recently Relevant to Health Maintenance Results * eGFR (08/26/2023 11:57 PM CDT) eGFR 64 mL/min/1. 73 m2 [facility] ([place]) Comment: Interpretive Data Reference Interval Normal >/= [...] LAB BLOOD ORDERABLES Dawn long Result [facility] ([place]) 1 [facility] Department [place] [address] from Last 3 Months or Most Recently Relevant to Health Maintenance Insurance AETNA MEDICARE [facility] ADVANTRA HUMANA CHOICE MEDICARE PPO Advance Directives For more information, please contact: [phone] Documents on File Type Date Recorded Patient Panelboard Operator Expl anation ADVANCE DIRECTIVE 08/13/2019 9:05 AM [place] Will ADVANCE DIRECTIVE 08/13/2019 9:07 AM Anne r [employer] Labor Supervisor-Medical * Full Code (Latest Code Status [...] Alternat e Health Care Agent Care Teams Call Center Manager Relationship Specialty Start Date End Date Ricki Wood DO PCP - General 08/03/21
--- OUTSIDE RECORDS SUMMARY | 2024-12-13 08:44 | XMS_ITS | Encounter Summary ---
Author Organization [facility] Address [address] [place] [address] Phone Care Team Providers Care Chemistry Lecturer Name Role Phone BethelorlandoRickiian Primary Care Provider Reason for Visit * Reason Comments Medication Refill Encounter Details Date Type Department Care Team (Late st Contact Info) Description 04/03/2022 Refill [facility] - Gastroenterology [facility] [address] [place] [address] Elizabeth Cooper, PAC [address] [place] [address] Medication Refill Social History Tobacco Use Types Packs/Day Years Used Date Smoking Tobacco: Never Smokeless Tobacco: Never Alcohol Use Standard Drinks/Week Comments Yes 0 (1 standard drink = 0.6 oz pur e alcohol) Sexually Active Control Partners Comments Yes Sex and Gender Information Value Date Recorded Sex Assigned at Not on file Legal Sex Male 8:56 PM CDT Gender Identity Not on file Sexual Orientation Not on file documented as of this encounter Miscellaneous Notes * Telephone Encounter - Stefanie Paige - 04/05/2022 9:30 AM CDT Unable to leave message * Telephone Encounter - Stefanie Paige - 04/04/2022 10:32 AM CDT Left message for pt to call back. * Telephone Encounter - CooperElizabeth soriano PAC - 04/04/2022 8:29 AM CDT May advise prescription was approved for 90 days however he was to have had a follow-up for his fatty liver disease approximately 6 months ago. If he does not wish to continue follow-up with GI, he may request all further refills from his primary care provider. Please advise fatty liver disease canprogress to more serious liver issues. * Telephone Encounter - Kimmy Montalvo RN - 04/04/2022 8:17 AM CDT Pharmacy requesting refill of: Requested Prescriptions Pending Prescriptions Disp Refills ??? omeprazole (PriLOSEC) 40 MG CAPSULE DELAYED RELEASE [Pharmacy Med Name: OMEPRAZOLE DR 40 MG CAPSULE] 90 Capsule 3 Sig: TAKE 1 CAPSULE BY MOUTH EVERY DAY Last fill: 04/07/21 Patients last OV with GI: 04/07/21 Next Office Visit with GI: No upcoming office visits with GI Omeprazole pended for provider review. documented in this encounter Plan of Treatment Not on file documented as of this encounter Visit Diagnoses Diagnosis Epigastric pain Abdominal pain, epigastric documented in this encounter Care Teams Chemistry Lecturer Relationship Specialty Start Date End Date Ricki Wood DO [facility] [place] [address] PCP - General Internal Medicine 02/09/21 documented as of this encounter
--- OUTSIDE RECORDS SUMMARY | 2024-12-13 08:44 | XMS_ITS | Clinical Summary ---
Author Organization [facility] Address [address] [place], [address] [address] Phone Care Team Providers Care Lang Path Therapist Name Role Phone Ricki Wood Primary Care Provider Allergies No known active allergies Medications metFORMIN (GLUCOPHAGE) 1000 MG Tablet Take 1,000 mg by mouth. 06/05/2019 Active atorvastatin (LIPITOR) 20 MG Tablet Take 20 mg by mouth. Active lisinopril (PRINIVIL, ZESTRIL) 20 MG Tablet TAKE 1 TABLET BY MOUTH EVERY DAY (REPLACES LOSARTAN) 03/14/2021 Active glipiZIDE (GLUCOTROL) 5 MG Tablet 02/17/2021 Active Cholecalciferol (VITAMIN D3 PO) Take by mouth. Active ZINC OXIDE PO Take by mouth. Active Ascorbic Acid (VITAMIN C PO) Take by mouth. Active omeprazole (PriLOSEC) 40 MG CAPSULE DELAYED RELEASEIndicati ons:Epigastric pain TAKE 1 CAPSULE BY MOUTH EVERY DAY 90 Capsule 04/04/2022 Active Active Problems No known active problems Immunizations Immunization Administration Dates Next Due Influenza Vaccine, Quadrivalent, PF 08/13/2019,0 06/20/2017,07/31/2016 Influenza, Seasonal, Injectable, Undefined 08/21 TDAP Vaccine 05/01/2013 Family History Medical History Relation Name Comments Diabetes Father Stroke Maternal Grandmother Diabetes Mother Leukemia/Lymphoma Paternal Grandmother Diabetes Sister Relation Name Status Comments Father Maternal Grandmother Mother Paternal Grandmother Sister Social History Tobacco Use Types Packs/Day Years Used Date Smoking Tobacco: Never Smokeless Tobacco: Never Tobacco Cessation:Counseling Given: No Alcohol Use Standard Drinks/Week Comments Yes 0 (1 standard drink = 0.6 oz pur e alcohol) Sexually Active Control Partners Comments Yes Sex and Gender Information Value Date Recorded Sex Assigned at Not on file Legal Sex Male 8:56 PM CDT Gender Identity Not on file Sexual Orientation Not on file Last Filed Vital Signs Vital Sign Reading Time Taken Comments Blood Pressure 148/82 04/07/2021 10:53 AM CDT Pulse 83 04/07/2021 10:53 AM CDT Temperature 36.7 C (98 F) 04/07/2021 10:53 AM CDT Respiratory Rate 18 04/07/2021 10:53 AM CDT Oxygen Saturation 97% 04/07/2021 10:53 AM CDT Inhaled Oxygen Concentration - - Weight 137.9 kg (304 lb) 04/07/2021 10:53 AM CDT Height 188 cm (6' 2 ) 04/07/2021 10:53 AM CDT Body Mass Index 39.03 04/07/2021 10:53 AM CDT Plan of Treatment Health Maintenance Due Date Last Done Comments Hepatitis C Virus (HCV) Screening 1971 Hepatitis B Immunization (1 of 3 - 19+ 3-dose series) 1990 Colonoscopy 2016 Colorectal Cancer Screening 2016 Cologuard 2021 Immunochemical Fecal Occult Blood 2021 Pneumococcal Immunization (5 0+ years) (1 of 1 - PCV) 2021 Zoster Immunization (1 of 2) 2021 Influenza Immunization (#1) 06/23/202407/24, 06/20/2017, 07/31/2016 SARS-COV-2 Immunization ( season) 2024 Respiratory Syncytial Virus (RSV) Immunization (Adult) (1 - 1-dose 75+ series) 2046 DTaP/Tdap/Td Immunization Discontinued 05/01/2013 Meningococcal Immunization (ACWY) Aged Out No longer eligible based on patient's age to complete this topic Pneumococcal Immunization Combined Aged Out No longer eligible based on patient's age to complete this topic Rotavirus Immunization Aged Out No lo nger eligible based on patient's age to complete this topic Insurance MEDICARE Care Teams Lang Path Therapist Relationship Specialty Start Date End Date Ricki Wood DO [facility] [facility] [place] [address] [place] [address] PCP - General Internal Medicine 02/09/21
--- OUTSIDE RECORDS SUMMARY | 2024-12-13 08:44 | XMS_ITS | Continuity of Care Document ---
Author Organization [facility] Address [address] [place] [address] [address] [place] [address] Phone Care Team Providers Care Investigation Division Captain Name Role Phone Elisa Steve Unavailable Unavailable Procedures Procedure Date Office/outpatient Visit, [facility] Advance Directives Directive Yes / No Effective Date File Name No Information Encounters Encounter Description Practice Location Reason(s) For Visit Diagnoses Date Provider Providers Copied on Encounter Office/outpat ient Visit, [facility], [address] [place] [address] [address], [place], [place], [id number], [place] tel:[phone] [facility] No Information 9-200 7 Evi Pérez. [address] , [address], [place], [place], [facility], [place]. tel:[phone] Referring Provider: Niels Mendosa, [facility] [place], [place], [facility]. tel:[phone] Family History Family Member Type Diagnosis Age At Onset No Information Payers Payer name Insurance type Covered green party ID Authoriza tion(s) No Information Social [...]
--- OUTSIDE RECORDS SUMMARY | 2024-12-13 08:44 | XMS_ITS | Clinical Summary ---
Author Organization [facility] Karoline Hilliard Address [address] [place] [address] Care Team Providers Care Geospatial Intelligence Analyst Name Role Phone Unavailable Primary Care Provider Unavailabl e Allergies No known active allergies Medications amLODIPine (NORVASC) 10 mg tablet Take 10 mg by mouth daily. Active atorvastatin (LIPITOR) 40 mg tablet Take 40 mg by mouth daily. Active aspirin (ECOTRIN EC) 81 mg Tablet, Delayed Release (E.C.) Take 81 mg by mouth daily. Active cholecalcifero l, vitamin D3, 1,000 unit Take 1,000 Units by mouth daily. Active Lantus Solostar U-100 Insulin 100 unit/mL (3 mL) solution for injection INJECT 5 UNIT (0.05 ML) SUBCUTANEOUSLY EVERY EVENING 4 Active metFORMIN (GLUCOPHAGE) 1,000 mg tablet Take 1,000 mg by mouth 2 times daily. Active lisinopriL (PRINIVIL) 40 mg tablet Take 40 mg by mouth daily. Active meclizine (ANTIVERT) 25 mg tablet TAKE 1 TABLET BY MOUTH TWICE A DAY NEEDED FOR DIZZINESS 4 Active omeprazole (PriLOSEC) 40 mg Capsule, Delayed Release(E.C.) Take 1 Capsule by mouth daily. 2 Active Active Problems No known active problems Encounters Date Type Department Care Team Description 12/03/2024 External Device Data STL ABSTRACTION Provider, Abstract 10/29/2024 External Device Data ST[facility] ABSTRACTION Provider, Abstract from Last 3 Months Family History Medical History Relation Name Comments Diabetes Brother No Known Problems Child 1 No Known Problems Child 2 No Known Problems Child 3 Diabetes Father Diabetes Mother Diabetes Sister Relation Name Status Comments Brother Alive Child 1 Alive Child 2 Alive Child 3 Alive Father Mother Sister Alive Social History Tobacco Use Types Packs/Day Years Used Date Smoking Tobacco: Never Tobacco Cessation:Counseling Given: Not Answered Alcohol Use Standard Drinks/Week Comments Yes 0 (1 standard drink = 0.6 oz pur e alcohol) socially Sex and Gender Information Value Date Recorded Sex Assigned at Not on file Legal Sex Male 9:32 AM CDT Gender Identity Not on file Sexual Orientation Not on file Last Filed Vital Signs Vital Sign Reading Time Taken Comments Blood Pressure 128/80 07/02/2024 3:11 PM CDT Pulse 72 07/02/2024 3:11 PM CDT Temperature 36.7 C (98 F) 07/02/2024 3:11 PM CDT Respiratory Rate 16 07/02/2024 3:11 PM CDT Oxygen Saturation 95% 07/02/2024 3:11 PM CDT Inhaled Oxygen Concentration - - Weight 128.8 kg (284 lb) 07/02/2024 3:11 PM CDT Height 185.4 cm (6' 1 ) 07/02/2024 3:11 PM CDT Body Mass Index 37.47 07/02/2024 3:11 PM CDT Plan of Treatment Upcoming Encounters Date Type Department Care Team (Late st Contact Info) Description 07/17/2025 10:15 AM CDT Office Visit [facility] Oncology and Hematology - [place] [address] [place] [address] [facility] [address] [place] [address] Lenin Zhang MD [address] [facility] [address] [place] [address] Health Maintenance Due Date Last Done Comments PNEUMOCOCCAL VACCINE 0-64 YE ARS (1 of 2 - PCV) 1977 DIABETES ANNUAL FOOT EXAM 1989 DIABETES ANNUAL RETINAL EXAM 1989 DIABETES HBA1C Q 6 MONTHS 1989 DIABETES MICROALBUMIN ANNUAL SCREEN 1989 LDL CHOLESTEROL ANNUAL 1989 HEPATITIS B VACCINES (1 of 3 - 19+ 3-dose series) 1990 COLORECTAL SCREENING 2016 Colorectal Cancer Screening 2016 FIT-DNA Q 3 years 2016 FIT/FOBT Q 1 year 2016 Flex Sig/CT Colonography Q 5 years 2016 ZOSTER VACCINE (1 of 2) 2021 DTAP/TDAP/TD VACCINES (2 - T d or Tdap) 05/01/2023 05/01/2013 INFLUENZA VACCINE (#1) 2024 9, 06/20/2017, 07/31/2016, Additional history exists Insurance [facility] MEDICARE ADVANTAGE PPO
[2024-12-13 14:54] LABS: Basophils Percent Auto 0.4 % (0.2-1.2); Eosinophils Absolute Auto 0.2 K/mm3 (0-0.3); Eosinophils Percent Auto 1.9 % (0-4.4); Hematocrit 45.2 % (42.0-52.0); Hemoglobin 14.4 g/dL (14.0-18.0); Immature Granulocyte Absolute 0.03 K/mm3 (0.00-0.031); Immature Granulocyte Percent A 0.3 % (0-0.5); Lymphocytes Absolute Auto 3.75 K/mm3 (0.9-3.2); Lymphocytes Percent Auto 36.4 % (18.3-44.2); Mean Corpuscular HGB Conc 31.9 g/dl (32-36); Mean Corpuscular Hemoglobin 27.4 pg (26-34); Mean Corpuscular Volume 85.9 fl (80-100); Mean Platelet Volume 9.5 fl (7.4-10.4); Monocytes Absolute Auto 0.7 K/mm3 (0.1-0.6); Monocytes Percent Auto 7.2 % (2.6-8.5); Neutrophils Absolute Auto 5.5 K/mm3 (1.3-6.7); Neutrophils Percent Auto 53.8 % (45.5-73.1); Platelet Count Result 395 k/mm3 (150-375); Red Blood Count 5.26 M/mm3 (4.6-6.20); Red Cell Distribution Width 14.1 % (11.5-14.5); White Blood Count 10.3 K/mm3 (4.5-10.0)
[2024-12-13 15:51] LABS: Hemoglobin A1C 7.3 % (<5.7)
[2024-12-13 16:08] LABS: Alanine Aminotransferase 42 U/L (6-50); Albumin Level 4.6 g/dL (3.5-5.1); Alkaline Phosphatase 69 U/L (38-126); Anion Gap 13 mmol/L (4-12); Aspartate Amino Transferase 43 U/L (17-59); Bilirubin,Total 0.8 mg/dL (0.2-1.3); Blood Urea Nitrogen 21 mg/dL (9-20); Calcium 9.7 mg/dL (8.4-10.2); Carbon Dioxide 29 mmol/L (22-30); Chloride 100 mmol/L (98-107); Cholesterol 152 mg/dL (0-200); Estimated Glomerular Filt Rate > 60; Glucose 102 mg/dL (65-110); HDL Direct 42 mg/dL; Potassium 4.2 mmol/L (3.4-5.0); Sodium 142 mmol/L (137-145); Triglycerides 222 mg/dL (<150)
[2024-12-13 16:26] LABS: LDL Cholesterol Direct 74 mg/dL
[2024-12-13 16:37] LABS: Prostate Specific Antigen 0.6 ng/mL (< OR = 4.0)
[2024-12-14 06:39] LABS: C-Peptide 5.34 ng/mL (0.80-3.85)
== END 2024-12-13 08:29 | disposition home or self-care (01) ==
LOC: ANHGOSHLAB 08:29
PROVIDERS: PCP Nurse Practitioner; Visit Provider Nurse Practitioner
DX: Z12.5 Encounter for screening for malignant neoplasm of prostate (principal); E11.42 Type 2 diabetes mellitus with diabetic polyneuropathy
CPT/HCPCS: 36415; 80053; 80061; 83036; 84153; 84681; 85025; G0103

== ENCOUNTER 2024-12-16 12:19 | Outpatient (CLI) | payer MEDICARE, SELFPAY ==
--- NOTE | ~2024-12-16 | MR_ITS ---
EXAMINATION: MR knee RT wo con DATE: 12/16/2024 13:00 INDICATION: Right knee pain TECHNIQUE: Magnetic resonance imaging (MRI) of the right knee was performed without intravenous contr ast. Sequences included coronal PD-weighted FSE, coronal PD-weighted FS FSE, sagittal T2-weighted FS E, sagittal PD-weighted FS FSE and axial PD weighted fat saturated FSE. COMPARISON: None. FINDINGS: Medial compartment: Medial meniscus is normal. Articular cartilage is normal. Lateral compartment: Small longitudinal horizontal tear extending to the inferior surface along the inner third of the bod y and posterior horn of the lateral meniscus. Articular cartilage is normal. Patellofemoral compartment: Mild patellar chondral surface irregularity at the lateral facet and apical ridge. Small partial-thic kness chondral fissure at the cephalad and central aspect of the medial trochlea. Shallow chondral ul ceration with mild underlying cortical irregularity at the inferior aspect of the medial trochlea. Ligaments and tendons: Anterior and posterior cruciate ligaments are normal. The medial collateral ligament and fibular boni ateral ligament complex are normal. Small enthesophytes at the superficial margin of the patellar ins ertions of the otherwise normal-appearing patellar and quadriceps tendons. The visualized medial and lateral hamstring tendons as well as the iliotibial band are normal. Fluid: Physiologic amount of fluid in the joint space. No loose osteochondral bodies identified. Small Pride 's cyst. Osseous/other: Normal marrow signal. No fracture or pathologic marrow replacing process. IMPRESSION: 1. Longitudinal horizontal tear at the body and posterior horn of the lateral meniscus. 2. 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 3. Small Pride's cyst. Reviewed, dictated and finalized at location B. P PROGRAM MANAGER IMPRESSION: 1. Longitudinal horizontal tear at the body and posterior horn of the lateral m eniscus. 2. Mild patellofemoral osteoarthritis with small regions of moderate and high-g rade chondromalacia. 3. Small Pride's cyst.
== END 2024-12-16 12:20 | disposition home or self-care (01) ==
LOC: GOSHIMG 12:20
PROVIDERS: PCP Nurse Practitioner; Visit Provider Nurse Practitioner
DX: S83.281A Other tear of lateral meniscus, current injury, right knee, initial encounter (principal); M17.11 Unilateral primary osteoarthritis, right knee; M94.261 Chondromalacia, right knee; M71.21 Synovial cyst of popliteal space [Baker], right knee
CPT/HCPCS: 73721

== ENCOUNTER 2024-12-31 08:57 | Outpatient (CLI) | payer MEDICARE, SELFPAY ==
--- OUTSIDE RECORDS SUMMARY | 2024-12-31 09:35 | XMS_ITS | Clinical Summary ---
Author Organization [facility] Address [address] [place] [address] Care Team Providers Care A P Manager Name Role Phone Ricki Wood DO Primary Care Provider [phone] Allergies No known active allergies Medications aspirin [...] by mouth 3 (three) times a week -W- Active lisinopriL (PRINIVIL,ZESTRIL) 40 mg tabletIndications:h ypertension [...] (02/14/2022): Added automatically from request for surgery [id number] Cellulitis of toe of left foot 08/03/2021 [...] Continue to monitor. Type 2 diabetes mellitus, [facility]-term current use of insulin 08/11/2019 [...] Intramuscular 08/13/2019,06/20/2017,07/31/2016 Influenza, Trivalent, IM (MDV) 08/21/2015 [employer] (J&J) SARS-CoV-2 Vaccination 08/03/2021( Deferred: Patient Refused) [...] Date Comments Hypertension Diabetes mellitus (HCC) Neuropathy Arthritis Thyroid disease Sleep apnea Awareness under [...] on file Legal Sex Male 3:14 AM JAVA GROOVY DEVELOPER Gender Identity Not on file Sexual Orientation Not on file Obstetrics History Last Filed Vital Signs Vital Sign Reading Time Taken Comments Blood Pressure 138/69 09/05/2024 4:35 PM JAVA GROOVY DEVELOPER Pulse 79 09/05/2024 4:35 PM JAVA GROOVY DEVELOPER Temperature 36.4 C (97.6 F) 09/05/2024 4:35 PM JAVA GROOVY DEVELOPER Respiratory Rate 16 09/05/2024 4:35 PM JAVA GROOVY DEVELOPER Oxygen Saturation 99% 09/05/2024 4:35 PM JAVA GROOVY DEVELOPER Inhaled Oxygen Concentration - - Weight 130.6 kg (288 lb) 09/05/2024 4:35 PM JAVA GROOVY DEVELOPER Height 185.4 cm (6' 1 ) 09/05/2024 4:35 PM JAVA GROOVY DEVELOPER Body Mass Index 38 09/05/2024 4:35 PM JAVA GROOVY DEVELOPER Plan of Treatment Health Maintenance Due Date [...] history exists Medical Devices Implanted Type Area Coffee Maker Device Identifier Shelf Expiration Date Model / Serial / Lot [employer] Corkscrew Suturetape 5.5mm 14.7mm Bioabsorbable Full Thread 1.3mm Ar-1927bct - [id number] Implanted:Qty: 1 on 02/25/2022 by Oj Townsend MD at [facility] Left: Shoulder [employer] [id number] 06/22/2022 AR-1927BC T / / [id number] [employer] Ar-2324 Bcm Swivelock 4.75mm 24.5mm Self Punch Vent Shoulder Jones Suture - [id number] Implanted:Qty: 1 on 02/25/2022 by Oj Townsend MD at [facility] Left: Shoulder [employer] [id number] 09/21/2025 AR-2324BC M / / [id number] [employer] Ar-2324 Bcm Swivelock 4.75mm 24.5mm Self Punch Vent Shoulder Jones Suture - [id number] Implanted:Qty: 1 on 02/25/2022 by Oj Townsend MD at [facility] Left: Shoulder [employer] [id number] 09/21/2025 AR-2324BC M / / [id number] [employer] Set Implant Arthrex Fibertak Biceps Sterile Latex Free Ar-3670 - [id number] Implanted:Qty: 1 on 02/25/2022 by Oj Townsend MD at [facility] Left: Shoulder [employer] [id number] 03/22/2026 AR-3670 / / [id number] Procedures Procedure Name Priority Date/Time Associated Diagnosis Comments EGFR STAT 08/26/2023 11:57 PM CDT from Last 3 Months or Most Recently Relevant to Health Maintenance Results * eGFR (08/26/2023 11:57 PM CDT) eGFR 64 mL/min/1. 73 m2 [facility] ([place]) Comment: Interpretive Data Reference Interval Normal >/= [...] 7 PM CDT 08/27/2023 12:01 AM CDT us Selina Simon MD LAB BLOOD ORDERABLES Dawn long Result [facility] ([place]) 1 [facility] Department [place] [address] from Last 3 Months or Most Recently Relevant to Health Maintenance Insurance AETNA MEDICARE [facility] ADVANTRA [employer] CHOICE MEDICARE PPO Advance Directives For more information, please contact: [phone] Documents on File Type Date Recorded Patient Sales Person Expl anation ADVANCE DIRECTIVE 08/13/2019 9:05 AM Hoa ng Will ADVANCE DIRECTIVE 08/13/2019 9:07 AM Anne schumacher of Floor Polisher-Medical * Full Code (Latest Code Status on [...] Alternat e Health Care Agent Care Teams A P Manager Relationship Specialty Start Date End Date Ricki Wood DO PCP - General 08/03/21
--- OUTSIDE RECORDS SUMMARY | 2024-12-31 09:35 | XMS_ITS | Clinical Summary ---
Author Organization [facility] Karoline Hilliard Address [address] [place] [address] Care Team Providers Care Patient Relations Coordinator Name Role Phone Unavailable Primary Care Provider [...] Description 07/17/2025 10:15 AM CDT Office Visit [facility] Oncology and Hematology - [place] [address] [place] [address] [facility] [address] [place] [address] Lenin Zhang MD [address] [facility] [address] [place] [address] Health Maintenance Due Date Last Done Comments DIABETES ANNUAL FOOT EXAM 1989 DIABETES ANNUAL [...] 9, 06/20/2017, 07/31/2016, Additional history exists Insurance [employer] MEDICARE ADVANTAGE PPO
--- OUTSIDE RECORDS SUMMARY | 2024-12-31 09:35 | XMS_ITS | Encounter Summary ---
Author Organization [facility] Address [address] [place] [address] Phone Care Team Providers Care Solar Crew Member Name Role Phone BethelorlandoRickiian Primary Care Provider Reason for Visit * Reason Comments Medication Refill Encounter Details Date Type Department Care Team (Late st Contact Info) Description 04/03/2022 Refill [facility] - Gastroenterology [facility] [address] [place] [address] Elizabeth Cooper, PAC [address] [place] [address] Medication Refill Social History Tobacco Use Types [...] Miscellaneous Notes * Telephone Encounter - Stefanie Piage - 04/05/2022 9:30 AM CDT Unable to leave message * Telephone Encounter - Stefanie Paige - 04/04/2022 10:32 AM CDT Left message for pt to call back. * Telephone Encounter - Elizabeth Cooper PAC - 04/04/2022 8:29 AM CDT May [...] epigastric documented in this encounter Care Teams Solar Crew Member Relationship Specialty Start Date End Date Ricki Wood DO [facility] [facility] [place] [address] PCP - General Internal Medicine 02/09/21 documented as of this encounter
--- OUTSIDE RECORDS SUMMARY | 2024-12-31 09:35 | XMS_ITS | Clinical Summary ---
Author Organization [facility] Address [address] [place], [address] [address] Phone Care Team Providers Care Dimensional Engineer Name Role Phone Ricki Wood Primary Care [...] complete this topic Insurance MEDICARE Care Teams Dimensional Engineer Relationship Specialty Start Date End Date Ricki Wood DO [facility] [place] [address] PCP - General Internal Medicine 02/09/21
--- OUTSIDE RECORDS SUMMARY | 2024-12-31 09:35 | XMS_ITS | Continuity of Care Document ---
Author Organization [facility] Address [address] [place] [address] [address] [place] [address] Phone Care Team Providers Care Radio Station Manager Name Role Phone Elisa Steve Unavailable Unavailable Procedures Procedure Date Office/outpatient Visit, [facility] Advance Directives Directive Yes / No Effective Date File Name No Information Encounters Encounter Description Practice Location Reason(s) For Visit Diagnoses Date Provider Providers Copied on Encounter Office/outpat ient Visit, [facility], [address] [place] [address] [address], [place], [place], [id number], [place] tel:[phone] SEC [facility] No Information 9-200 7 Evi Pérez. [address] [facility] [place] , [address], [place], [place], [facility], [place]. tel:[phone] Referring Provider: Niels Mendosa, [facility] [place], [place], [facility]. tel:[phone] Family History Family Member Type Diagnosis Age [...]
--- OUTSIDE RECORDS SUMMARY | 2024-12-31 09:35 | XMS_ITS | CONTINUITY OF CARE DOCUMENT ---
Author Name sonali lyon Address Unknown Organization [facility] Address [address] [place] [address] [address] [place] [address] Phone [phone] Care Team Providers Care Weigher And Charger Name Role Phone sonali lyon Unavailable Unavailable
--- OUTSIDE RECORDS SUMMARY | 2024-12-31 09:35 | XMS_ITS | Referral Summary ---
Author Organization [facility] Address [address] [place] [address] Care Team Providers Care Veterinary Technician Name Role Phone Ricki Wood DO Primary Care Provider [phone] Allergies No known active allergies Medications aspirin [...] (02/14/2022): Added automatically from request for surgery [id number] Cellulitis of toe of left foot 08/03/2021 [...] Continue to monitor. Type 2 diabetes mellitus, [facility] long-term current use of insulin 08/11/2019 [...] Intramuscular 08/13/2019,06/20/2017,07/31/2016 Influenza, Trivalent, IM (MDV) 08/21/2015 [employer] (J&J) SARS-CoV-2 Vaccination 08/03/2021( Deferred: Patient Refused) [...] on file Legal Sex Male 3:14 AM CONTACT CENTER REP Gender Identity Not on file Sexual Orientation Not on file Last Filed Vital Signs Vital Sign Reading Time Taken Comments Blood Pressure 138/69 09/05/2024 4:35 PM CONTACT CENTER REP Pulse 79 09/05/2024 4:35 PM CONTACT CENTER REP Temperature 36.4 C (97.6 F) 09/05/2024 4:35 PM CONTACT CENTER REP Respiratory Rate 16 09/05/2024 4:35 PM CONTACT CENTER REP Oxygen Saturation 99% 09/05/2024 4:35 PM CONTACT CENTER REP Inhaled Oxygen Concentration - - Weight 130.6 kg (288 lb) 09/05/2024 4:35 PM CONTACT CENTER REP Height 185.4 cm (6' 1 ) 09/05/2024 4:35 PM CONTACT CENTER REP Body Mass Index 38 09/05/2024 4:35 PM CONTACT CENTER REP Plan of Treatment Not on file Medical Devices Implanted Type Area Client Success Specialist Device Identifier Shelf Expiration Date Model / Serial / Lot [employer] Corkscrew Suturetape 5.5mm 14.7mm Bioabsorbable Full Thread 1.3mm Ar-1927bct - [id number] Implanted:Qty: 1 on 02/25/2022 by Oj Townsend MD at [facility] Left: Shoulder [employer] [id number] 06/22/2022 AR-1927BC T / / [id number] [employer] Ar-2324 Bcm Swivelock 4.75mm 24.5mm Self Punch Vent Shoulder [place] Suture - [id number] Implanted:Qty: 1 on 02/25/2022 by Oj Townsend MD at [facility] Left: Shoulder [employer] [id number] 09/21/2025 AR-2324BC M / / [id number] [employer] Ar-2324 Bcm Swivelock 4.75mm 24.5mm Self Punch Vent Shoulder [place] Suture - [id number] Implanted:Qty: 1 on 02/25/2022 by Oj Townsend MD at [facility] Left: Shoulder [employer] [id number] 09/21/2025 AR-2324BC M / / [id number] [employer] Set Implant Arthrex Fibertak Biceps Sterile Latex Free Ar-3670 - [id number] Implanted:Qty: 1 on 02/25/2022 by Oj Townsend MD at [facility] Left: Shoulder [employer] Inc [id number] 03/22/2026 AR-3670 / / [id number] Procedures Procedure Name Priority Date/Time Associated Diagnosis Comments EGFR STAT 08/26/2023 11:57 PM CDT from Last 3 Months or Most Recently Relevant to Health Maintenance Results * eGFR (08/26/2023 11:57 PM CDT) eGFR 64 mL/min/1. 73 m2 [facility] [place]) Comment: Interpretive Data Reference Interval Normal >/= [...] BLOOD ORDERABLES Dawn long Result [facility] ([place]) 1 [facility] Department [place] [address] from Last 3 Months or Most Recently Relevant to Health Maintenance Insurance [facility]NA [facility] ADV[facility] HUMANA CHOICE MEDICARE PPO Advance Directives For more information, please contact: [phone] Documents on File Type Date Recorded Patient Gum Rolling Machine Operator Expl anation ADVANCE DIRECTIVE 08/13/2019 9:05 AM Hoa mad[place] Will ADVANCE DIRECTIVE 08/13/2019 9:07 AM Anne schumacher of Survey Coordinator-Medical * Full Code (Latest Code Status on [...] Alternat e Health Care Agent Care Teams Veterinary Technician Relationship Specialty Start Date End Date Ricki Wood DO PCP - General 08/03/21
[2025-01-30 07:59] VITALS: BMI 41.3
--- NOTE | 2025-01-30 07:59 | WPDSLEEPSTUD ---
Sleep Study Date of Study: 12/31/24 Ordering Provider: Arnold Mason APRN Interpreting Physician: Lila Michael DO Sleep Study Type: CPAP Titration Height: 1.85 m Weight: 141.974 kg Body Mass Index: 41.3 Neck Circumference (inches): 19 Krebs: 5 Reason for Sleep Study Polysomnogram on 07/31/2024 showed AHI of 5.0 with desaturation down to 76%. Sleep History Julio Jin is a 54-year-old man with a history of obstructive sleep apnea years ago, did not find using CPAP helpful, said that he was frequently tangled up in the tubing. He was referred for a sleep evaluation by his neurologist because he has a long history of restless legs syndrome, neuropathy and pain and tingling as well as intrusive thoughts which interrupt falling asleep. Often when he dozes off for 10 or 15 minutes his body Aks like he has been asleep for several hours which he attributes to his PTSD. He worries about everything all the time. 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 He has a hard time falling asleep and he wakes up frequently during the night. He always has excessive daytime sleepiness. He has been seen by a psychiatrist for other reasons, also his been managed by his primary care, chiropractor, community health director and counselor. He occasionally awakens at night with heartburn, belching or coughing. He occasionally snores but rarely loudly enough that others complain about it. He occasionally has difficulty sleeping when he has a cold. Occasionally wakes up gasping for breath at night. Occasionally has breathing problems at night observed by others. He occasionally sweats excessively at night and occasionally notices his heart pounding or beating irregularly at night. Occasionally falls asleep during the day, never involuntarily and never while driving. He occasionally has loss of muscle tone with strong emotion. He occasionally has daytime difficulties due to excessive sleepiness. He never feels paralyzed on waking or falling asleep. He frequently has vivid dreamlike scenes upon awakening or falling asleep. He occasionally feels afraid to go to sleep. He occasionally has nightmares. He frequently remembers his dreams. He constantly has racing thoughts. He frequently feels sad or depressed. He occasionally has anxiety. He occasionally notices parts her body jerking. He frequently kicks at night and frequently has crawling aching feelings in his legs. He frequently has leg pain at night. He rarely has morning jaw pain. He he rarely grinds his teeth during sleep. He frequently is bothered by pain during the day and frequently awakened by pain at night. He constantly wakes up feeling stiff in the morning with sore or achy muscles as well as constantly awakens with pain in the neck and spine. He has headaches, palpitations, depression. He uses prescription drugs and marijuana. He has concentration difficulties, dizziness fatigue and sexual problems. He takes antacids regularly. Normal bedtime is between 4 and 7:00 a.m., and the amount of time to fall asleep varies however he usually waits until he is worn out in order to try to go to sleep. He definitely awakens between 2 and 3 times during the night. These nighttime awakenings last between 10 and 20 minutes. When he awakens at night, he checks the house, he checks the doors windows and looks at his phone. He does not have a set wake-up time. He estimates getting between 2 and 6 hours of sleep at night. He is up most of the time at night while the rest of the world sleeps. He does physical exercise before bedtime, very light exercise at times. He he rarely takes naps during the day. He may feel refreshed after short 10-15 minute nap. He is usually drowsy for 2 hours after waking. 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 Hepatic steatosis Syrinx Abnormal ankle brachial index (CANDE) Erectile dysfunction Arthritis of left acromioclavicular joint Left rotator cuff tear Hearing loss Essential hypertension Appendix injury Removed CTS (carpal tunnel syndrome) MRSA (methicillin resistant Staphylococcus aureus) Pneumonia Mononucleosis Bulging disc Migraine Recurrent UTI Diarrhea Constipation Bronchitis Erectile dysfunction Type 2 diabetes mellitus pt states last A1c was around january 2021 less than 7 Hypercholesterolemia Hypertension Cholecystectomy planned 2010 PTSD (post-traumatic stress disorder) Surgical History Surgical History H/O vasectomy H/O uvulectomy History of tonsillectomy H/O toe surgery Pins in left toe H/O elbow surgery H/O shoulder surgery RIght History of ear surgery Right Family History Family History Father Family history of diabetes mellitus in first degree relative Acute myocardial infarction Diabetes mellitus Family history of cardiovascular disease Mother Family history of diabetes mellitus in first degree relative Acute myocardial infarction Diabetes mellitus Family history of cardiovascular disease Sibling , brother Family history of diabetes mellitus in first degree relative Other Cerebrovascular accident Family history of allergic disorder Family history of kidney disease Family history of malignant neoplasm Family history of tuberculosis Hypertension Social History Social History Social History: Caffeine-daily Smoking status: Never smoker Alcohol intake: current Alcohol use details: 2 beers monthly Substance use: current Substance use type: marijuana Other substance usage details: edibles Do You Feel Safe in your Home?: Yes Lack of Transportation: No Lack of Food: Never True Current Housing: I Have Housing Concerned About Future Housing: No Difficulty Paying for Meds: YES Education: Associate Degree Difficulty w/ Childcare or Family Care: No Living arrangements: with family Gender identity (if verbalized by the patient): Male Spiritual care concerns: No Medications Home Medications ?Medication ?Instructions ?Recorded ?Confirmed ?Type aspirin 81 mg tablet,delayed 81 mg PO DAILY 10/24/19 01/23/25 History release (Adult Low Dose Aspirin) cholecalciferol (vitamin D3) 125 125 mcg PO DAILY 08/26/22 01/23/25 History mcg (5,000 unit) capsule zinc acetate 1 cap PO DAILY 08/26/22 01/23/25 History sildenafil 50 mg tablet 50 mg PO DAILY PRN sexual activity 03/13/24 01/23/25 Rx #20 tabs blood sugar diagnostic (Accu-Chek #100 ea 05/13/24 01/23/25 Rx Guide test strips) blood-glucose meter (Accu-Chek #1 ea 05/13/24 01/23/25 Rx Guide Glucose Meter) glipizide 10 mg tablet 10 mg PO BID #180 tabs 07/24/24 01/23/25 Rx hydrochlorothiazide 25 mg tablet 25 mg PO DAILY #90 tabs 08/09/24 01/23/25 Rx clonidine HCl 0.1 mg tablet 0.1 mg PO DAILY 08/15/24 01/23/25 History turmeric 1 cap PO DAILY 08/15/24 01/23/25 History lisinopril 40 mg tablet 40 mg PO DAILY #90 tabs 09/30/24 01/23/25 Rx omega-3 fatty acids [Fish Oil] 1 cap PO DAILY 10/07/24 01/23/25 History amlodipine 10 mg tablet 10 mg PO DAILY #90 tabs 10/25/24 01/23/25 Rx atorvastatin 40 mg tablet 40 mg PO DAILY #90 tabs 10/25/24 01/23/25 Rx metformin 1,000 mg tablet 1,000 mg PO BID #180 tabs 10/25/24 01/23/25 Rx eszopiclone 3 mg tablet 3 mg PO ONCE #1 tablet 11/08/24 01/23/25 Rx biotin 5,000 mcg chewable tablet mcg PO 12/16/24 01/23/25 History capsicum (cayenne) 450 mg capsule mg PO 12/16/24 01/23/25 History multivitamin (Multiple Vitamins 1 tablet PO DAILY 12/16/24 01/23/25 History tablet) insulin glargine 100 unit/mL (3 18 unit (0.18 mL) subcut QPM #15 mL 12/19/24 01/23/25 Rx mL) subcutaneous pen (Lantus Solostar U-100 Insulin) omeprazole 40 mg capsule,delayed See Rx Instructions .Route 12/25/24 01/23/25 Rx release .COMPLEX #90 caps Sleep Procedure A full night CPAP Titration using the [employer] multi-channel system recorded the standard physiologic parameters including EEG, EOG, submentalis EMG, anterior tibialis EMG, EKG, body position, nasal and oral airflow using nasal pressure sensor and thermistor.? Respiratory parameters of chest and abdominal movements were recorded with Respiratory Inductance Plethysmography belts. Oxygen saturation was recorded by pulse oximetry. Video monitoring was also performed. Sleep stages, periodic limb movements, and EEG arousals were scored in 30 second epochs according to the criteria of the AASM Scoring Manual. The Apnea-Hypopnea Index was calculated using [facility] guidelines for definition of hypopnea with 4% O2 desaturations while scoring respiratory events. Sleep Architecture The total recording time was 462.9 minutes.? The total sleep time was 330.5 minutes. Sleep latency was 86.3 minutes. REM latency was 71.5 minutes. Sleep efficiency was 71.4%. The patient had 13 awakenings for an awakening index of 2.4. Wake after Sleep Onset time was 46.0 minutes. The patient spent 5.5 minutes, 1.7% of total sleep time in Stage N1. The patient spent 226.5 minutes, 68.5% in Stage N2. The patient spent 25.0 minutes, 7.6% in Stage N3. The patient spent 73.5 minutes, 22.2% in Stage REM. Respiratory Analysis The patient had 1 hypopnea for an overall Apnea Hypopnea Index of 0.2 events per hour. The REM Apnea Hypopnea Index was 0.8. The NREM Apnea Hypopnea Index was 0. The patient had a Central Apnea Hypopnea Index of 0. There was no evidence of Salvador-Potts Respirations. The patient was started on CPAP 5 cm H2O titrated to CPAP 9 cm H2O to with EPR of 2. The patient was able fall asleep starting on CPAP 6 cm H2O with EPR of 2. The patient was able to achieve REM sleep starting on CPAP 8 cm H2O with EPR. The patient was able to achieve a residual AHI less than 5 with both NREM and REM sleep in the supine position on the final pressure setting. On CPAP 9 cm H2O with EPR of 2, the patient spent 194 minutes in NREM and 61.5 minutes in REM with 6 hypopneas, resulting in an AHI of 1.4. The patient had a sleep efficiency of 87.1% on this pressure setting. Arousals There were 75 total arousals for an arousal index of 13.6. There were 50 spontaneous arousals for an index of 9.1. ?There were 3 arousals due to respiratory events for an index of 0.5. There were 17 arousals due to periodic limb movements for an index of 3.1.? There were 5 arousals due to isolated limb movements for an index of 0.9. Periodic Limb Movements The patient had 36 isolated limb movements with an index of 6.5. The patient had 220 periodic limb movements with index of 39.9, which is elevated (normal < 15). Patient had a total of 256 limb movements with a total limb movement index of 46.5. Oximetry Data The patient had an average oxygen saturation of 94.5% in sleep with a minimum oxygen saturation of 90.0% and a maximum oxygen saturation of 98.0%. The patient had 1 oxygen desaturations that were 4% or greater resulting in an Oxygen Desaturation Index of 0.2.? The patient spent 0.7 minutes, 0.1% of total sleep time with an oxygen saturation below 88%. Snoring Profile Moderate snoring was present in the beginning of the study. The snoring became rare once the patient was titrated to 9 cm H2O. Cardiac Profile The EKG showed normal sinus rhythm with occasional PVCs. The patient had an average pulse rate of 67.8 bpm with a minimum pulse rate of 58.0 bpm and a maximum pulse rate of 93.0 bpm. ? EEG Profile No signs of seizure activity seen. Assessment and Plan Assessment and Plan (1) Obstructive sleep apnea: Code(s): G47.33 - Obstructive sleep apnea (adult) (pediatric) Status: Acute Assessment and Plan: The patient was started on CPAP 5 cm H2O titrated to CPAP 9 cm H2O to with EPR of 2. The patient's sleep apnea resolved on the final pressure setting. I recommend that the patient be prescribed CPAP 9 cm H2O with EPR of 2, size medium Resmed Mirage Quattro FFM, CPAP filters/tubing and heated humidity. This should be used with all episodes of sleep.? Compliance should be reviewed within 31-90 days of starting therapy for usage greater than 4 hours per night greater than 70% of the nights. The patient should be asked about symptoms such as?excessive daytime sleepiness, quality of sleep, decreased nocturia, increased?mental functioning such as memory, mood, and concentration. Data The data obtained during this sleep study is adequate for interpretation. Certification This sleep study has been reviewed by a board certified sleep medicine physician.
== END 2025-01-01 06:50 | disposition home or self-care (01) ==
PROVIDERS: PCP Nurse Practitioner; Visit Provider Nurse Practitioner Family
DX: G47.33 Obstructive sleep apnea (adult) (pediatric) (principal)
CPT/HCPCS: 95811

== ENCOUNTER 2025-02-14 15:28 | Outpatient (CLI) | payer MEDICARE, SELFPAY ==
--- NOTE | ~2025-02-14 | XR_ITS ---
XR ankle RT min 3V Ordering provider: María Elena Bradshaw NP History: . M25.579 - Pain in unspecified ankle and joints of unspeci... . Comparison: None. FINDINGS: BONES: No acute fracture or dislocation. JOINT SPACES: Normal. SOFT TISSUES: Normal. Ossification of the insertion of the tendo Achilles. IMPRESSION: No acute osseous abnormality of the right ankle. Reviewed, dictated and finalized at location A.
== END 2025-02-14 15:29 | disposition home or self-care (01) ==
LOC: GOSHIMG 15:29
PROVIDERS: PCP Nurse Practitioner; Visit Provider Nurse Practitioner
DX: M25.579 Pain in unspecified ankle and joints of unspecified foot (principal)
CPT/HCPCS: 73610

== ENCOUNTER 2025-02-19 15:00 | Outpatient (CLI) | payer MEDICARE, SELFPAY ==
--- OUTSIDE RECORDS SUMMARY | 2025-02-19 16:00 | XMS_ITS | Referral Summary ---
Author Organization [facility] Medical Office Building B Address [address] [place] [address] Care Team Providers Care Solar Electric/Photovoltaic Installer Name Role Phone Ricki Wood DO Primary Care Provider [phone]- [phone] Allergies No known active allergies Medications aspirin [...] (02/14/2022): Added automatically from request for surgery [id number] Cellulitis of toe of left foot 08/03/2021 [...] Continue to monitor. Type 2 diabetes mellitus, [facility] long-term current use of insulin 08/11/2019 [...] Intramuscular 08/13/2019,06/20/2017,07/31/2016 Influenza, Trivalent, IM (MDV) 08/21/2015 [employer] (J&J) SARS-CoV-2 Vaccination 08/03/2021( Deferred: Patient Refused) [...] on file Legal Sex Male 3:14 AM PSYCHOLOGICAL OPERATIONS Gender Identity Not on file Sexual Orientation Not on file Last Filed Vital Signs Vital Sign Reading Time Taken Comments Blood Pressure 138/69 09/05/2024 4:35 PM PSYCHOLOGICAL OPERATIONS Pulse 79 09/05/2024 4:35 PM PSYCHOLOGICAL OPERATIONS Temperature 36.4 C (97.6 F) 09/05/2024 4:35 PM PSYCHOLOGICAL OPERATIONS Respiratory Rate 16 09/05/2024 4:35 PM PSYCHOLOGICAL OPERATIONS Oxygen Saturation 99% 09/05/2024 4:35 PM PSYCHOLOGICAL OPERATIONS Inhaled Oxygen Concentration - - Weight 130.6 kg (288 lb) 09/05/2024 4:35 PM PSYCHOLOGICAL OPERATIONS Height 185.4 cm (6' 1 ) 09/05/2024 4:35 PM PSYCHOLOGICAL OPERATIONS Body Mass Index 38 09/05/2024 4:35 PM PSYCHOLOGICAL OPERATIONS Plan of Treatment Not on file Medical Devices Implanted Type Area Brand Ambassador Promotional Model Device Identifier Shelf Expiration Date Model / Serial / Lot [employer] Corkscrew Suturetape 5.5mm 14.7mm Bioabsorbable Full Thread 1.3mm Ar-1927bct - [id number] Implanted:Qty: 1 on 02/25/2022 by Oj Townsend MD at [facility] Left: Shoulder [employer] [id number] 06/22/2022 AR-1927BC T / / [id number] [employer] Ar-2324 Bcm Swivelock 4.75mm 24.5mm Self Punch Vent Shoulder Melvin Suture - [id number] Implanted:Qty: 1 on 02/25/2022 by Oj Townsend MD at [facility] Left: Shoulder [employer] [id number] 09/21/2025 AR-2324BC M / / [id number] [employer] Ar-2324 Bcm Swivelock 4.75mm 24.5mm Self Punch Vent Shoulder Melvin Suture - [id number] Implanted:Qty: 1 on 02/25/2022 by Oj Townsend MD at [facility] Left: Shoulder [employer] [id number] 09/21/2025 AR-2324BC M / / [id number] [employer] Set Implant Arthrex Fibertak Biceps Sterile Latex Free Ar-3670 - [id number] Implanted:Qty: 1 on 02/25/2022 by Oj Townsend MD at [facility] Left: Shoulder [employer] [id number] 03/22/2026 AR-3670 / / [id number] Procedures Procedure Name Priority Date/Time Associated Diagnosis Comments EGFR STAT 08/26/2023 11:57 PM CDT from Last 3 Months or Most Recently Relevant to Health Maintenance Results * eGFR (08/26/2023 11:57 PM CDT) eGFR 64 mL/min/1. 73 m2 [facility] Comment: Interpretive Data Reference Interval Normal >/= [...] BLOOD ORDERABLES Dawn long Result [facility] ([facility]) 1 [facility] Department [place] [address] from Last 3 Months or Most Recently Relevant to Health Maintenance Insurance [employer] MEDICARE [facility] ADVANTRA HUMANA CHOICE MEDICARE PPO Advance Directives For more information, please contact: [phone] Documents on File Type Date Recorded Patient Defective Cigarette Slitter Expl anation ADVANCE DIRECTIVE 08/13/2019 9:05 AM Hoa madrid Will ADVANCE DIRECTIVE 08/13/2019 9:07 AM Anne schumacher of Geospatial Imagery Intelligence Analyst-Medical * Full Code (Latest Code Status on [...] Alternat e Health Care Agent Care Teams Solar Electric/Photovoltaic Installer Relationship Specialty Start Date End Date Ricki Wood DO PCP - General 08/03/21
--- OUTSIDE RECORDS SUMMARY | 2025-02-19 16:00 | XMS_ITS | Clinical Summary ---
Author Organization [facility] Karoline Hilliard Address [address] [place] [address] Care Team Providers Care Content Developer Name Role Phone Unavailable Primary Care Provider [...] Encounters Date Type Department Care Team Description 12/31/2024 External Device Data ST[facility] ABSTRACTION Provider, Abstract 12/31/2024 External Device Data [facility] ABSTRACTION Provider, Abstract 12/03/2024 External Device Data [facility] ABSTRACTION Provider, [...] Description 07/17/2025 10:15 AM CDT Office Visit [facility] Oncology and Hematology [facility] [address] [facility] [address] [place] [address] Lenin Zhang MD [address] [facility] [address] [place] [address] Health Maintenance Due Date Last [...] 9, 06/20/2017, 07/31/2016, Additional history exists Insurance [facility] MEDICARE ADVANTAGE PPO
--- OUTSIDE RECORDS SUMMARY | 2025-02-19 16:00 | XMS_ITS | CONTINUITY OF CARE DOCUMENT ---
Author Name sonali lyon Address Unknown Organization [facility] Address [address] [place] [address] [address] [place] [address] Phone [phone] Care Team Providers Care Process Safety Specialist Name Role Phone sonali lyon Unavailable Unavailable
--- OUTSIDE RECORDS SUMMARY | 2025-02-19 16:00 | XMS_ITS | Encounter Summary ---
Author Organization [facility] Address [address] [facility] [place] [address] Phone Care Team Providers Care Liability Claims Manager Name Role Phone BethelorlandoRickiian Primary Care Provider Reason for Visit * Reason Comments Medication Refill Encounter Details Date Type Department Care Team (Late st Contact Info) Description 04/03/2022 Refill [facility] - Gastroenterology [facility] [address] [place] [address] Elizabeth Cooper March, PAC [address] [place] [address] Medication Refill Social History Tobacco Use Types [...] to call back. * Telephone Encounter - Cooper, ROSAURA Espinosa - 04/04/2022 8:29 AM CDT May advise [...] epigastric documented in this encounter Care Teams Liability Claims Manager Relationship Specialty Start Date End Date Ricki Wood DO [address] [place] [address] PCP - General Internal Medicine 02/09/21 documented as of this encounter
--- OUTSIDE RECORDS SUMMARY | 2025-02-19 16:00 | XMS_ITS | Clinical Summary ---
Author Organization [facility] Medical Office Building B Address [address] [place] [address] Care Team Providers Care Slot Operations Director Name Role Phone Ricki Wood DO Primary Care Provider +1- [phone] Allergies No known active allergies Medications aspirin [...] (02/14/2022): Added automatically from request for surgery [id number] Cellulitis of toe of left foot 08/03/2021 [...] Continue to monitor. Type 2 diabetes mellitus, [facility] long-term current use of insulin 08/11/2019 [...] Intramuscular 08/13/2019,06/20/2017,07/31/2016 Influenza, Trivalent, IM (MDV) 08/21/2015 [employer] (J&J) SARS-CoV-2 Vaccination 08/03/2021( Deferred: Patient Refused) [...] on file Legal Sex Male 3:14 AM PROJECT FACILITATOR Gender Identity Not on file Sexual Orientation Not on file Obstetrics History Last Filed Vital Signs Vital Sign Reading Time Taken Comments Blood Pressure 138/69 09/05/2024 4:35 PM PROJECT FACILITATOR Pulse 79 09/05/2024 4:35 PM PROJECT FACILITATOR Temperature 36.4 C (97.6 F) 09/05/2024 4:35 PM PROJECT FACILITATOR Respiratory Rate 16 09/05/2024 4:35 PM PROJECT FACILITATOR Oxygen Saturation 99% 09/05/2024 4:35 PM PROJECT FACILITATOR Inhaled Oxygen Concentration - - Weight 130.6 kg (288 lb) 09/05/2024 4:35 PM PROJECT FACILITATOR Height 185.4 cm (6' 1 ) 09/05/2024 4:35 PM PROJECT FACILITATOR Body Mass Index 38 09/05/2024 4:35 PM PROJECT FACILITATOR Plan of Treatment Health Maintenance Due Date [...] history exists Medical Devices Implanted Type Area Scheduling Clerk Device Identifier Shelf Expiration Date Model / Serial / Lot [employer] Corkscrew Suturetape 5.5mm 14.7mm Bioabsorbable Full Thread 1.3mm Ar-1927bct - [id number] Implanted:Qty: 1 on 02/25/2022 by Oj Townsend MD at [facility] Left: Shoulder [employer] [id number] 06/22/2022 AR-1927BC T / / [id number] [employer] Ar-2324 Bcm Swivelock 4.75mm 24.5mm Self Punch Vent Shoulder [place] Suture - [id number] Implanted:Qty: 1 on 02/25/2022 by Oj Townsend MD at [facility] Left: Shoulder [employer] [id number] 09/21/2025 AR-2324BC M / / [id number] [employer] Ar-2324 Bcm Swivelock 4.75mm 24.5mm Self Punch Vent Shoulder [place] Suture - [id number] Implanted:Qty: 1 on 02/25/2022 by Oj Townsend MD at [facility] Left: Shoulder [employer] [id number] 09/21/2025 AR-2324BC M / / [id number] Ar[employer] Set Implant Arthrex Fibertak Biceps Sterile Latex Free Ar-3670 - [id number] Implanted:Qty: 1 on 02/25/2022 by Oj Townsend MD at [facility] Left: Shoulder [employer] [id number] 03/22/2026 AR-3670 / / [id number] Procedures Procedure Name Priority Date/Time Associated Diagnosis Comments EGFR STAT 08/26/2023 11:57 PM CDT from Last 3 Months or Most Recently Relevant to Health Maintenance Results * eGFR (08/26/2023 11:57 PM CDT) eGFR 64 mL/min/1. 73 m2 [facility] ([place]) Comment: Interpretive Data Reference Interval Normal >/= [...] BLOOD ORDERABLES Dawn long Result [facility] ([place]) 1 [facility] Department [place] [address] from Last 3 Months or Most Recently Relevant to Health Maintenance Insurance [employer]ET[employer] MEDICARE [facility] ADVANTRA HUMANA CHOICE MEDICARE PPO Advance Directives For more information, please contact: [phone] Documents on File Type Date Recorded Patient Inspector Process Expl anation ADVANCE DIRECTIVE 08/13/2019 9:05 AM Hoa ng Will ADVANCE DIRECTIVE 08/13/2019 9:07 AM Anne schumacher of Roll Scale Worker-Medical * Full Code (Latest Code Status on [...] Alternat e Health Care Agent Care Teams Slot Operations Director Relationship Specialty Start Date End Date Ricki Wood DO PCP - General 08/03/21
--- OUTSIDE RECORDS SUMMARY | 2025-02-19 16:00 | XMS_ITS | Clinical Summary ---
Author Organization [facility] Address [address], [address] [address] Phone Care Team Providers Care Public Safety Dispatcher Name Role Phone Ricki Wood Primary Care [...] Immunochemical Fecal Occult Blood 2021 Pneumococcal Immunization (50+ years) (1 of 1 - PCV) 2021 Zoster Immunization (1 of 2) 2021 Influenza Immunization (#1) 06/23/202407/24, 06/20/2017, 07/31/2016, Additional history exists SARS-COV-2 Immunization ( season) 2024 Respiratory Syncytial Virus (RSV) Immunization (Adult) (1 - 1-dose 75+ series) 2046 DTaP/Tdap/Td Immunization Discontinued 05/01/2013 Meningococcal Immunization (ACWY) Aged Out No longer eligible based on patient's age to complete this topic Rotavirus Immunization Aged Out No lo nger eligible based on patient's age to complete this topic Insurance MEDICARE Care Teams Public Safety Dispatcher Relationship Specialty Start Date End Date Ricki Wood DO [facility] [facility] [place] [address] PCP - General Internal Medicine 02/09/21
--- OUTSIDE RECORDS SUMMARY | 2025-02-19 16:00 | XMS_ITS | Continuity of Care Document ---
Author Organization [facility] Address [address] [place] [address] [address] [place] [address] Phone Care Team Providers Care Preparer Making Department Name Role Phone Elisa Steve Unavailable Unavailable Procedures Procedure Date Office/outpatient Visit, [facility] Advance Directives Directive Yes / No Effective Date File Name No Information Encounters Encounter Description Practice Location Reason(s) For Visit Diagnoses Date Provider Providers Copied on Encounter Office/outpat ient Visit, [facility], [address] [place] [address] [address], [place], [place], [id number], [place] tel:[phone] [facility] No Information 9-200 [address] Evi Pérez. [address] , [address], [place], [place], [facility], [place]. tel:[phone] Referring Provider: Niels Mendosa, [facility] [place], [place], [facility]. tel:[phone] Family History Family Member Type Diagnosis Age At Onset No Information Payers Payer name Insurance type Covered libertarian ID Authoriza tion(s) No Information Social History [...]
--- NOTE | 2025-03-04 11:27 | WPDHOLTEREM ---
Holter/Event Monitor Holter/Event Monitor Date of procedure: 02/19/25 Holter/Event Procedure: 3-7 Day Holter Monitor Indications: Palpitations Conclusion: 1. 3 days holter monitor on 02/19/25. 2. Predominant rhythm is sinus rhythm. HR range 57-167 bpm; average HR 78 bpm. 3. There are rare premature supraventricular complexes. There is 1 episode of supraventricular tachycardia at 167 bpm lasting 10 beats. 4. There are rare premature ventricular complexes. No ventricular tachycardia. 5. No significant pauses greater than 3 seconds. 6. No symptoms available for correlation.
== END 2025-02-19 15:01 | disposition home or self-care (01) ==
PROVIDERS: PCP Nurse Practitioner; Visit Provider Nurse Practitioner
DX: R94.39 Abnormal result of other cardiovascular function study (principal); R00.2 Palpitations
CPT/HCPCS: 93242

== ENCOUNTER 2025-06-22 13:07 | Emergency (ER) | payer MEDICARE, SELFPAY ==
--- NOTE | ~2025-06-22 | XR_ITS ---
EXAMINATION: XR finger 3rd RT min 2V DATE: 06/22/2025 13:41 INDICATION: Right third finger infection TECHNIQUE: Dorsal palmar, lateral and 2 oblique views of the right third digit were obtained COMPARISON: None FINDINGS: 1 cortical width dorsal displacement of an oblique fracture extending across the proximal metaphyseal region of the right third distal phalanx. No other fractures identified. Alignment is normal. Mild osteoarthritis and several of the visualized interphalangeal joints including the third proximal and distal interphalangeal joints. Soft tissues swelling throughout the third digit most prominent distally. IMPRESSION: 1. One cortical width dorsal displacement of an extra articular fracture across the proximal metaphysis of the right third distal phalanx. Reviewed, dictated and finalized at location A.
[2025-06-22 13:20] VITALS: BP 160/86; PULSE 74; RESP 18; TEMP 36.4; O2SAT 97
--- NOTE | 2025-06-22 13:22 | ED.SKABFB ---
HPI - Skin/Abscess/Foreign Bdy General Chief complaint: Extremity Injury, Upper Stated complaint: finger injury Time Seen by Provider: 06/22/25 13:10 patient presents to Express Care with complaints of noticing increased redness and swelling to right middle finger over the last couple days. Patient reports a long history of polyneuropathy and has several injuries to all of his digits on both hands. Patient noted he has been keeping all of these clean using an iodine based wash and applying Neosporin. Most of the wounds are in various stages of healing. denies drainage from the area. Related Data Home Medications ?Medication ?Instructions ?Recorded ?Confirmed ?Last Taken ?Type aspirin 81 mg tablet,delayed 81 mg PO DAILY 10/24/19 02/11/25 Unknown History release (Adult Low Dose Aspirin) cholecalciferol (vitamin D3) 125 125 mcg PO DAILY 08/26/22 02/11/25 Unknown History mcg (5,000 unit) capsule zinc acetate 1 cap PO DAILY 08/26/22 02/11/25 Unknown History clonidine HCl 0.1 mg tablet 0.1 mg PO DAILY 08/15/24 02/11/25 Unknown History multivitamin (Multiple Vitamins 1 tablet PO DAILY 12/16/24 02/11/25 Unknown History tablet) magnesium 250 mg tablet 250 mg PO DAILY 06/22/25 Unknown History potassium 20 mg chewable tablet mg PO 06/22/25 Unknown History Allergies Allergy/AdvReac Type Severity Reaction Status Date / Time amitriptyline AdvReac Mild Sweating Verified 06/22/25 13:20 Review of Systems Constitutional: Constitutional: Reports as per HPI, Denies chills, Denies fatigue, Denies fever(s) and Denies weakness Eyes: Eyes: Reports no additional eye complaints Cardiovascular: Cardiovascular: Reports no additional cardiovascular complaints Respiratory: Respiratory: Reports no additional respiratory complaints Gastrointestinal: Gastrointestinal: Reports no additional gastrointestinal complaints Genitourinary: Genitourinary: Reports no additional male genitourinary complaints Musculoskeletal: Musculoskeletal: Reports as per HPI, Reports arthralgias, Reports joint swelling and Denies muscle cramps Integumentary/Breasts: Skin/Breast: Reports as per HPI, Reports erythema and Denies rash Comments: healing open wounds to all fingers. redness, swelling, and open wound to right middle finger Neurologic: Reports as per HPI, Denies vertigo, Denies dizziness, Denies headache(s) and Reports numbness Psychiatric: Psychiatric: Reports no additional psychiatric complaints Endocrine: Endocrine: Reports no additional endocrine complaints Hematologic/Lymphatic: Hematologic/Lymphatic: Reports no additional hematologic/lymphatic complaints Allergic/Immunologic: Allergic/Immunologic: Reports no additional allergic/immunologic complaints [facility] Past Medical History Medical History Restless legs syndrome Obstructive sleep apnea Abnormal serum protein electrophoresis Positive TORI (antinuclear antibody) Excessive daytime sleepiness Mental status alteration Blurring of vision Peroneal neuropathy 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 Hepatic steatosis Syrinx Abnormal ankle brachial index (CANDE) Erectile dysfunction Arthritis of left acromioclavicular joint Left rotator cuff tear Hearing loss Essential hypertension Appendix injury Removed CTS (carpal tunnel syndrome) MRSA (methicillin resistant Staphylococcus aureus) Pneumonia Mononucleosis Bulging disc Migraine Recurrent UTI Diarrhea Constipation Bronchitis Erectile dysfunction Type 2 diabetes mellitus pt states last A1c was around january 2021 less than 7 Hypercholesterolemia Hypertension Cholecystectomy planned 2010 PTSD (post-traumatic stress disorder) Surgical History Surgical History H/O vasectomy H/O uvulectomy History of tonsillectomy H/O toe surgery Pins in left toe H/O elbow surgery H/O shoulder surgery RIght History of ear surgery Right Family History Family History Father Family history of diabetes mellitus in first degree relative Acute myocardial infarction Diabetes mellitus Family history of cardiovascular disease Mother Family history of diabetes mellitus in first degree relative Acute myocardial infarction Diabetes mellitus Family history of cardiovascular disease Sibling , brother Family history of diabetes mellitus in first degree relative Other Cerebrovascular accident Family history of allergic disorder Family history of kidney disease Family history of malignant neoplasm Family history of tuberculosis Hypertension Social History Social History (Updated 02/11/25 @ 14:56 by Jennifer Puga CMA) Social History: Caffeine-daily Smoking status: Never smoker Alcohol intake: current Alcohol use details: 2 beers monthly Substance use: current Substance use type: marijuana Other substance usage details: edibles Do You Feel Safe in your Home?: Yes Lack of Transportation: No Lack of Food: Never True Current Housing: I Have Housing Concerned About Future Housing: No Difficulty Paying for Meds: YES Currently Unemployed: Decline to Answer Education: Associate Degree Difficulty w/ Childcare or Family Care: No Living arrangements: with family Gender identity (if verbalized by the patient): Male Spiritual care concerns: No Exam Const: General: healthy appearing and no acute distress Nutritional Appearance: well nourished Orientation/consciousness: patient oriented x3 Limitations: no limitations Resp: Effort & Inspection: normal respiratory effort Auscultation: clear to auscultation bilaterally Cardio: Rate: regular rate Rhythm: regular rhythm Skin: Rashes: no rashes Wounds: wounds noted Neuro: General: patient oriented x3 and moves all extremities Speech: normal speech Gait exam (Neuro): Normal gait present Extrem: Right upper extremity: Extremity exam: right hand abnormal to inspection, neurosensory exam abnormal, tenderness, abnormal ROM of finger, warmth and swelling; no abrasions Other: diffuse erythema with deep (0.5cm) wound noted to right middle finger DIP joint palmar aspect. Noted scabbed healing wounds to all other digits- no erythema, edema, or warmth noted to other wounds. Psych: Mental Status: mental status grossly normal Affect: normal affect Attitude: cooperative Course Course Level of Care: Express Care Visit Vital Signs Vital signs: Vital Signs Temperature 97.5 F L 06/22/25 13:20 Pulse Rate 74 06/22/25 13:20 Respiratory Rate 18 06/22/25 13:20 Blood Pressure 160/86 H 06/22/25 13:20 Pulse Oximetry 97 06/22/25 13:20 Oxygen Delivery Room Air 06/22/25 13:20 Temperature 97.5 F L 06/22/25 13:20 Pulse Rate 74 06/22/25 13:20 Respiratory Rate 18 06/22/25 13:20 Blood Pressure 160/86 H 06/22/25 13:20 Pulse Oximetry 97 06/22/25 13:20 Oxygen Delivery Room Air 06/22/25 13:20 MDM - Skin/Abscess/Foreign Bdy MDM Narrative Medical decision making narrative: Given depth of wound will obtain x-rays. Educated patient on wound care practices will use Bactrim and mupirocin. The patient was evaluated by myself in the express care. History is obtained from patient who is an independent historian and physical exam was performed. Available medical records were reviewed at this time. Exam findings show no acute concerns or changes; patient is non-toxic appearing and is in no distress. Patient is appropriate for outpatient treatment and follow-up. I have evaluated and discussed social determinants of health with the patient that could potentially impact subsequent diagnosis and treatment plans. Differential diagnosis and treatment plan were discussed with the patient. Patient agrees with discussion and after shared medical decision making agrees with plan of care. All questions were answered to the patient's satisfaction. Differential Diagnosis Differential diagnosis: Likely abscess of skin or subcutaneous tissue, allergic reaction to drug, cellulitis and insect bites Medical Records Attestation: I reviewed the patient's medical records. Imaging Data Attestation: I personally reviewed and interpreted this imaging study as follows: My impression: No osteomyelitis noted. fracture noted to distal phalanx right 3rd digit Radiologist's impression: IMPRESSION: 1. One cortical width dorsal displacement of an extra articular fracture across the proximal metaphysis of the right third distal phalanx. Reviewed, dictated and finalized at location A. Discharge Plan Discharge Clinical Impression: Cellulitis of finger of right hand, Open fracture of distal phalanx of right middle finger Patient Disposition: Home Condition: Stable Instructions: Antibiotic Form, Finger Fracture (ED), Cellulitis (ED) Additional Instructions: There is a fracture shown your x-ray. We have placed you in an immobilization keep this all times. May remove to shower. Call the orthopedic physician/hand surgeon you have been given to schedule an appointment as soon as possible. Ensure to take a disc of your x-ray results with you. Ice to the area 15-20 minutes 4-6 times a day until follow up with orthopedics. Minimize activities and rest the affected area as much as possible. Elevate above heart as much as possible to reduce swelling You may take over the counter tylenol and ibuprofen as needed for pain. given the proximity of the infected wound to this fracture we will put you on antibiotics and treat this as if it is an open fracture. Clean with soap and water only; Avoid using alcohol and peroxide. Elevate the affected area if possible Alternate Tylenol/ibuprofen for as needed for pain Acetaminophen(Tylenol) 650-1000mg every 4-6hours with max of 4000mg/day. Nonsteroidal anti-inflammatory agent (NSAIDs-ibuprofen): 400mg every 4-6hours with max 2400mg/day Take antibiotic until it's gone. Please schedule a follow up visit with your personal physician for further evaluation and treatment within 3-5days OR if your symptoms persist, change or worsen significantly before you can contact your personal physician then please, without delay, go to the emergency department for further evaluation. Patient Language: Vietnamese Prescriptions: New sulfamethoxazole-trimethoprim [Bactrim DS] 800-160 mg tablet 1 tablet PO Q12H Qty: 20 0RF mupirocin [Centany] 2 % ointment 1 applic topical BID Qty: 22 0RF No Action magnesium 250 mg tablet 250 mg PO DAILY potassium 20 mg tablet,chewable PO cholecalciferol (vitamin D3) 125 mcg (5,000 unit) capsule 125 mcg PO DAILY zinc acetate 1 cap PO DAILY clonidine HCl 0.1 mg tablet 0.1 mg PO DAILY multivitamin [Multiple Vitamins] Tablet 1 tablet PO DAILY aspirin [Adult Low Dose Aspirin] 81 mg tablet,delayed release (DR/EC) 81 mg PO DAILY (DME) blood-glucose meter [Accu-Chek Guide Glucose Meter] Misc See Rx Instructions .Route Qty: 1 0RF Rx Instructions: Use to check BS BID (DME) Accu-Chek Guide test strips Strip See Rx Instructions .Route Qty: 100 3RF Rx Instructions: Use to check BS BID insulin glargine [Lantus Solostar U-100 Insulin] 100 unit/mL (3 mL) insulin pen 18 unit subcut QPM Qty: 15 1RF lisinopril 40 mg tablet 40 mg PO DAILY Qty: 90 1RF hydrochlorothiazide 25 mg tablet 25 mg PO DAILY Qty: 90 1RF amlodipine 10 mg tablet 10 mg PO DAILY Qty: 90 1RF Rx Instructions: TAKE 1 TABLET BY MOUTH EVERY DAY metformin 1,000 mg tablet 1,000 mg PO BID Qty: 180 1RF atorvastatin 40 mg tablet 40 mg PO DAILY Qty: 90 1RF Rx Instructions: TAKE 1 TABLET BY MOUTH EVERY DAY glipizide 10 mg tablet See Rx Instructions .ROUTE .COMPLEX Qty: 180 1RF Dose Instruction: TAKE 1 TABLET BY MOUTH TWICE A DAY Rx Instructions: TAKE 1 TABLET BY MOUTH TWICE A DAY omeprazole 40 mg capsule,delayed release(DR/EC) See Rx Instructions .ROUTE .COMPLEX Qty: 90 1RF Dose Instruction: TAKE 1 CAPSULE BY MOUTH EVERY DAY NEEDED FOR INDIGESTION Rx Instructions: TAKE 1 CAPSULE BY MOUTH EVERY DAY NEEDED FOR INDIGESTION sildenafil 50 mg tablet 50 mg PO DAILY PRN (Reason: sexual activity) Qty: 20 0RF Rx Instructions: administer 30 minutes to 4 hours before activity Follow-up/Referrals: Esteban Leung MD [Physician, Plastic Surgery] Referral Note: call to schedule an appointment María Elena Bradshaw NP [Primary Care Provider, Internal Medicine] Time of Disposition: 13:57
== END 2025-06-22 14:00 | disposition home or self-care (01) ==
PROVIDERS: Emergency Provider Nurse Practitioner Family; PCP Nurse Practitioner
DX: L03.011 Cellulitis of right finger (principal); S62.612B Displaced fracture of proximal phalanx of right middle finger, initial encounter for open fracture; X58.XXXA Exposure to other specified factors, initial encounter; E11.42 Type 2 diabetes mellitus with diabetic polyneuropathy; Z79.4 Long term (current) use of insulin; Z79.84 Long term (current) use of oral hypoglycemic drugs; I10 Essential (primary) hypertension; E78.00 Pure hypercholesterolemia, unspecified; G25.81 Restless legs syndrome; Z98.52 Vasectomy status; Z79.82 Long term (current) use of aspirin
CPT/HCPCS: 29130; 73140; 99213; 99214; G0463

== ENCOUNTER 2025-07-29 13:37 | Outpatient (CLI) | payer MEDICARE, SELFPAY ==
--- OUTSIDE RECORDS SUMMARY | 2007-01-18 02:55 | XMS_ITS | Continuity of Care Document ---
Author Organization [facility] Address [address] [place] [address] [address] [place] [address] Phone Care Team Providers Care Finishing Lab Technician Name Role Phone Elisa Steve Unavailable Unavailable Procedures Procedure Date Office/outpatient Visit, [facility] Advance Directives Directive Yes / No Effective Date File Name No Information Encounters Encounter Description Practice Location Reason(s) For Visit Diagnoses Date Provider Providers Copied on Encounter Office/outpat ient Visit, [facility], [address] [place] [address] [address], [place], [place], [id number], [place] tel:[phone] SEC [facility] No Information 9-200 7 Evi P[address]rez. [address] [place] , [address], [place], [place], [facility], [place]. tel:[phone] Referring Provider: Niels Mendosa, [facility] [place], [place], [facility]. tel:[phone] Family History Family Member Type Diagnosis Age At Onset No Information Payers Payer name Insurance type Covered democrat ID Authoriza tion(s) No Information Social History [...]
--- OUTSIDE RECORDS SUMMARY | 2025-07-29 14:34 | XMS_ITS | Encounter Summary ---
Author Organization [facility] Address [address] [facility] [place] [address] Phone Care Team Providers Care Automatic Operator Name Role Phone BethelorlandoRickiian Primary Care Provider Reason for Visit * Reason Comments Medication Refill Encounter Details Date Type Department Care Team (Late st Contact Info) Description 04/03/2022 Refill [facility] - Gastroenterology [facility] [address] [place] [address] Elizabeth Cooper March, PAC [address] [place] [address] Medication Refill Social History Tobacco Use Types [...] epigastric documented in this encounter Care Teams Automatic Operator Relationship Specialty Start Date End Date Ricki Wood DO [address] [facility]] [place] [address] PCP - General Internal Medicine 02/09/21 documented as of this encounter
--- OUTSIDE RECORDS SUMMARY | 2025-07-29 14:34 | XMS_ITS | Patient Health Record ---
Author Organization [facility] Address [address] [facility] [address] [place] [address] Care Team Providers Care Furnace Converter Name Role Phone Bella Cheek Unavailable [phone] Reason For Referral No Information Medications Medication SIG (Take, Route, Frequency, Duration) Notes Start Date End Date Status Lisinopril 20 MG Tablet Oral Active METFORMIN ER 1,000 MG TABLET,EXTENDED RELEASE 24HR (OSMOTIC) *Reorder from [facility] for eRx and Interaction Alerts* Active Omeprazole 40 MG Capsule Delayed Release Oral Active ASPIRIN 81 MG-OMEPRAZOLE 40 MG TABLET,IMMEDIATE AND DELAYED RELEASE *[facility]s* Active Atorvastatin Calcium 20 MG Tablet Oral Active Plan Of Treatment No Information
--- OUTSIDE RECORDS SUMMARY | 2025-07-29 14:34 | XMS_ITS | Clinical Summary ---
Author Organization [facility] Address [address], [address] [address] Phone Care Team Providers Care Brush Machine Setter Name Role Phone Ricki Wood Primary Care [...] 10:53 AM CDT Height 188 cm (6' 2) 04/07/2021 10:53 AM CDT Body Mass Index 39.03 04/07/2021 10:53 AM CDT Plan of Treatment Health Maintenance Due Date Last Done Comments Hepatitis C Virus (HCV) Screening 1971 Hepatitis B Immunization (1 of 3 - 19+ 3-dose series) 1990 Medicare Initial AWV [id number] 07/23/2015 Cologuard 2016 Colonoscopy 2016 Colorectal Cancer Screening 2016 Immunochemical Fecal Occult Blood 2016 Pneumococcal Immunization (50+ years) (1 of 1 - PCV) 2021 Zoster Immunization (1 of 2) 2021 Influenza Immunization (#1) 06/23/202507/24, 06/20/2017, 07/31/2016, Additional history exists SARS-COV-2 Immunization ( - season) 2025 Respiratory Syncytial Virus (RSV) Immunization (Adult) (1 - 1-dose 75+ series) 2046 DTaP/Tdap/Td Immunization Discontinued 05/01/2013 Human Papillomavirus (HPV) Immunization Aged Out No longer eligible based on patient's age to complete this topic Meningococcal Immunization (ACWY) Aged Out No longer eligible based on patient's age to complete this topic Rotavirus Immunization Aged Out No lo nger eligible based on patient's age to complete this topic Insurance MEDICARE Care Teams Brush Machine Setter Relationship Specialty Start Date End Date Ricki Wood DO [address] [facility] [place] [address] PCP - General Internal Medicine 02/09/21
--- OUTSIDE RECORDS SUMMARY | 2025-07-29 14:34 | XMS_ITS | Clinical Summary ---
Author Organization [facility] Address [address] [place] [address] Care Team Providers Care Chief Steward/Stewardess Name Role Phone Ricki Wood DO Primary Care Provider [phone] Allergies No known active allergies Medications aspirin [...] (02/14/2022): Added automatically from request for surgery [id number] Cellulitis of toe of left foot 08/03/2021 [...] Continue to monitor. Type 2 diabetes mellitus, [facility] long-term current use of insulin 08/11/2019 Assessment [...] Intramuscular 08/13/2019,06/20/2017,07/31/2016 Influenza, Trivalent, IM (MDV) 08/21/2015 [employer] SARS-CoV-2 Vaccination 08/03/2021( Deferred: Patient Refused) [...] Medical History Date Comments Hypertension Diabetes mellitus Neuropathy Arthritis Thyroid disease Sleep apnea Awareness [...] on file Legal Sex Male 3:14 AM CLAY PUDDLER Gender Identity Not on file Sexual Orientation Not on file Obstetrics History Last Filed Vital Signs Vital Sign Reading Time Taken Comments Blood Pressure 138/69 09/05/2024 4:35 PM CLAY PUDDLER Pulse 79 09/05/2024 4:35 PM CLAY PUDDLER Temperature 36.4 C (97.6 F) 09/05/2024 4:35 PM CLAY PUDDLER Respiratory Rate 16 09/05/2024 4:35 PM CLAY PUDDLER Oxygen Saturation 99% 09/05/2024 4:35 PM CLAY PUDDLER Inhaled Oxygen Concentration - - Weight 130.6 kg (288 lb) 09/05/2024 4:35 PM CLAY PUDDLER Height 185.4 cm (6' 1) 09/05/2024 4:35 PM CLAY PUDDLER Body Mass Index 38 09/05/2024 4:35 PM CLAY PUDDLER Plan of Treatment Health Maintenance Due Date [...] (2 - Td or Tdap) 05/01/2023 05/01/2013 eGFR 08/26/2024 08/26/2023, /06/2022, 08/05/2021, Additional history exists Influenza Vaccine (#1) 2025 , 06/20/2017, 07/31/2016, Additional history exists Medical Devices Implanted Type Area Strategic Planning Director Device Identifier Shelf Expiration Date Model / Serial / Lot [employer] Corkscrew Suturetape 5.5mm 14.7mm Bioabsorbable Full Thread 1.3mm [id number] - [id number] Implanted:Qty: 1 on 02/25/2022 by Oj Townsedn MD at [facility] Left: Shoulder [employer] [id number] 06/22/2022 AR-[id number] T / / [id number] [employer] Ar-2324 Bcm Swivelock 4.75mm 24.5mm Self Punch Vent Shoulder [employer] Suture - [id number] Implanted:Qty: 1 on 02/25/2022 by Oj Townsend MD at [facility] Left: Shoulder [employer] [id number] 09/21/2025 AR-2324BC M / / [id number] [employer] Ar-2324 Bcm Swivelock 4.75mm 24.5mm Self Punch Vent Shoulder [employer] Suture - [id number] Implanted:Qty: 1 on 02/25/2022 by Oj Townsend MD at [facility] Left: Shoulder [employer] [id number] 09/21/2025 AR-2324BC M / / [id number] [employer] Set Implant Arthrex Fibertak Biceps Sterile Latex Free Ar-3670 - [id number] Implanted:Qty: 1 on 02/25/2022 by Oj Townsend MD at [facility] Left: Shoulder [employer] [id number] 03/22/2026 AR-3670 / / [id number] Procedures Procedure Name Priority Date/Time Associated Diagnosis Comments EGFR STAT 08/26/2023 11:57 PM CDT from Last 3 Months or Most Recently Relevant to Health Maintenance Results * eGFR (08/26/2023 11:57 PM CDT) eGFR 64 mL/min/1. 73 m2 [facility] Comment: Interpretive Data Reference Interval Normal >/= [...] BLOOD ORDERABLES Dawn long Result [facility] Department [place] [address] from Last 3 Months or Most Recently Relevant to Health Maintenance Insurance [employer] MEDICARE [facility] ADVANTRA [employer] CHOICE MEDICARE PPO Advance Directives For more information, please contact: [phone] Documents on File Type Date Recorded Patient Developer Automatic Expl anation ADVANCE DIRECTIVE 08/13/2019 9:05 AM Hoa ng Will ADVANCE DIRECTIVE 08/13/2019 9:07 AM Anne schumacher of Insurance Analyst-Medical * Full Code (Latest Code Status [...] Alternat e Health Care Agent Care Teams Chief Steward/Stewardess Relationship Specialty Start Date End Date Ricki Wood DO PCP - General 08/03/21
--- OUTSIDE RECORDS SUMMARY | 2025-07-29 14:34 | XMS_ITS | Clinical Summary ---
Author Organization [facility] Karoline sandoval Luiza Address [address] [place] [address] Care Team Providers Care Bleacher Pulp Name Role Phone Unavailable Primary Care Provider [...] Encounters Date Type Department Care Team Description 07/16/2025 Telephone [facility] Oncology and Hematology - Mahesh [address] [place] [address] Lenin Zhang MD labs for appt 05/20/2025 Abstract [facility] Mahesh [address] [place] [address] Lenin Zhang MD from Last 3 Months Family History Medical [...] 3:11 PM CDT Height 185.4 cm (6' 1) 07/02/2024 3:11 PM CDT Body Mass Index 37.47 07/02/2024 3:11 PM CDT Plan of Treatment Upcoming Encounters Date Type Department Care Team (Late st Contact Info) Description 08/25/2025 2:00 PM MOUNTER SOUSAPHONES Office Visit [facility] - Mahesh [address] [facility] [address] [place] [address] Lenin Zhang MD [address] [facility] [address] [place] [address] Health Maintenance Due Date Last [...] or Tdap) 05/01/2023 05/01/2013 INFLUENZA VACCINE (#1) 2025 9, 06/20/2017, 07/31/2016, Additional history exists [facility] [address] [facility]
[2025-07-29 18:40] LABS: Hematocrit 43.3 % (42.0-52.0); Hemoglobin 14.0 g/dL (14.0-18.0); Immature Granulocyte Percent A 0.3 % (0-0.5); Lymphocytes Absolute Auto 2.05 K/mm3 (0.9-3.2); Mean Corpuscular HGB Conc 32.3 g/dl (32-36); Mean Corpuscular Hemoglobin 28.2 pg (26-34); Mean Corpuscular Volume 87.1 fl (80-100); Nucleated Red Blood Cells Absolute Auto 0.000 K/mm3 (0.0-0.012); Nucleated Red Blood Cells Perc 0.0 % (0.0-0.2); Platelet Count Result 331 k/mm3 (150-375); Red Blood Count 4.97 M/mm3 (4.6-6.20); White Blood Count 7.9 K/mm3 (4.5-10.0)
[2025-07-29 19:09] LABS: Alanine Aminotransferase 67 U/L (6-50); Albumin Level 4.4 g/dL (3.5-5.1); Alkaline Phosphatase 90 U/L (38-126); Anion Gap 9 mmol/L (4-12); Aspartate Amino Transferase 84 U/L (17-59); Bilirubin,Total 0.6 mg/dL (0.2-1.3); Blood Urea Nitrogen 15 mg/dL (9-20); Calcium 9.3 mg/dL (8.4-10.2); Carbon Dioxide 28 mmol/L (22-30); Chloride 100 mmol/L (98-107); Estimated Glomerular Filt Rate > 60; Glucose 281 mg/dL (65-110); Potassium 4.3 mmol/L (3.4-5.0); Sodium 137 mmol/L (137-145); Total Protein 7.8 g/dL (6.3-8.2)
[2025-07-29 20:15] LABS: Hemoglobin A1C 7.6 % (<5.7)
== END 2025-07-29 13:38 | disposition home or self-care (01) ==
LOC: ANHGOSHLAB 13:38
PROVIDERS: PCP Nurse Practitioner; Visit Provider Nurse Practitioner
DX: E11.42 Type 2 diabetes mellitus with diabetic polyneuropathy (principal)
CPT/HCPCS: 36415; 80053; 83036; 85025

== ENCOUNTER 2025-08-20 15:29 | Outpatient (CLI) | payer MEDICARE, SELFPAY ==
--- OUTSIDE RECORDS SUMMARY | 2007-01-18 02:55 | XMS_ITS | Continuity of Care Document ---
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 [address] [place] , [address], [place], [place], [facility], [place]. tel:[phone] Referring Provider: Niels Mendosa, [facility] [place], [place], [facility]. tel:[phone] Family History Family Member Type Diagnosis Age At Onset No Information Payers Payer name Insurance type Covered republican ID Authoriza tion(s) No Information Social History [...]
[2025-08-20 16:23] LABS: Hematocrit 43.2 % (42.0-52.0); Hemoglobin 14.3 g/dL (14.0-18.0); Immature Granulocyte Percent A 0.3 % (0-0.5); Lymphocytes Absolute Auto 2.46 K/mm3 (0.9-3.2); Mean Corpuscular HGB Conc 33.1 g/dl (32-36); Mean Corpuscular Hemoglobin 28.2 pg (26-34); Mean Corpuscular Volume 85.2 fl (80-100); Nucleated Red Blood Cells Absolute Auto 0.000 K/mm3 (0.0-0.012); Nucleated Red Blood Cells Perc 0.0 % (0.0-0.2); Platelet Count Result 342 k/mm3 (150-375); Red Blood Count 5.07 M/mm3 (4.6-6.20); White Blood Count 8.7 K/mm3 (4.5-10.0)
[2025-08-20 16:37] LABS: Alanine Aminotransferase 74 U/L (6-50); Albumin Level 4.5 g/dL (3.5-5.1); Alkaline Phosphatase 91 U/L (38-126); Anion Gap 11 mmol/L (4-12); Aspartate Amino Transferase 64 U/L (17-59); Bilirubin,Total 0.8 mg/dL (0.2-1.3); Blood Urea Nitrogen 15 mg/dL (9-20); Calcium 9.2 mg/dL (8.4-10.2); Carbon Dioxide 25 mmol/L (22-30); Chloride 101 mmol/L (98-107); Estimated Glomerular Filt Rate > 60; Glucose 155 mg/dL (65-110); Potassium 4.2 mmol/L (3.4-5.0); Sodium 137 mmol/L (137-145); Total Protein 8.1 g/dL (6.3-8.2)
[2025-08-20 16:58] LABS: Immunoglobulin A 318 mg/dL (70-400); Immunoglobulin G 1193 mg/dL (700-1600); Immunoglobulin M 61 mg/dL (40-230)
--- OUTSIDE RECORDS SUMMARY | 2025-08-20 17:33 | XMS_ITS | Patient Health Record ---
Author Organization [facility] [employer] Address [address] [facility] [address] [place] [address] Care Team Providers Care Licensing Specialist Name Role Phone Bella Cheek Unavailable [phone] Reason For Referral No Information Medications Medication SIG (Take, Route, Frequency, Duration) Notes Start Date End Date Status Lisinopril 20 MG Tablet Oral Active METFORMIN ER 1,000 MG TABLET,EXTENDED RELEASE 24HR (OSMOTIC) *Reorder from [facility] for eRx and Interaction Alerts* Active Omeprazole 40 MG Capsule Delayed Release Oral Active ASPIRIN 81 MG-OMEPRAZOLE 40 MG TABLET,IMMEDIATE AND DELAYED RELEASE [facility]* Active Atorvastatin Calcium 20 MG Tablet Oral Active Plan Of Treatment No Information
--- OUTSIDE RECORDS SUMMARY | 2025-08-20 17:33 | XMS_ITS | Clinical Summary ---
Author Organization [facility] Medical Office Building [facility] Address [address] [place] [address] Care Team Providers Care Residential Sales Rep Name Role Phone Ricki Wood DO Primary Care Provider Allergies No known active allergies Medications aspirin [...] (02/14/2022): Added automatically from request for surgery [id number] Cellulitis of toe of left foot 08/03/2021 [...] Continue to monitor. Type 2 diabetes mellitus, [facility] long-term current use of insulin 08/11/2019 [...] Intramuscular 08/13/2019,06/20/2017,07/31/2016 Influenza, Trivalent, IM (MDV) 08/21/2015 [employer] (J&J) SARS-CoV-2 Vaccination 08/03/2021( Deferred: Patient Refused) [...] on file Legal Sex Male 3:14 AM COOK ROAST Gender Identity Not on file Sexual Orientation Not on file Obstetrics History Last Filed Vital Signs Vital Sign Reading Time Taken Comments Blood Pressure 138/69 09/05/2024 4:35 PM COOK ROAST Pulse 79 09/05/2024 4:35 PM COOK ROAST Temperature 36.4 C (97.6 F) 09/05/2024 4:35 PM COOK ROAST Respiratory Rate 16 09/05/2024 4:35 PM COOK ROAST Oxygen Saturation 99% 09/05/2024 4:35 PM COOK ROAST Inhaled Oxygen Concentration - - Weight 130.6 kg (288 lb) 09/05/2024 4:35 PM COOK ROAST Height 185.4 cm (6' 1) 09/05/2024 4:35 PM COOK ROAST Body Mass Index 38 09/05/2024 4:35 PM COOK ROAST Plan of Treatment Health Maintenance Due Date [...] history exists Medical Devices Implanted Type Area Basketball Coach Device Identifier Shelf Expiration Date Model / Serial / Lot [employer] Inc Corkscrew Suturetape 5.5mm 14.7mm Bioabsorbable Full Thread 1.3mm Ar-1927bct - [id number] Implanted:Qty: 1 on 02/25/2022 by Oj Townsend MD at [facility] Left: Shoulder [employer] [id number] 06/22/2022 AR-1927BC T / / [id number] Ar[employer] Inc Ar-2324 Bcm Swivelock 4.75mm 24.5mm Self Punch Vent Shoulder [place] Suture - [id number] Implanted:Qty: 1 on 02/25/2022 by Oj Townsend MD at [facility] Left: Shoulder [employer] [id number] 09/21/2025 AR-2324BC M / / [id number] [employer] Ar-2324 Bcm Swivelock 4.75mm 24.5mm Self Punch Vent Shoulder [place] Suture - [id number] Implanted:Qty: 1 on 02/25/2022 by Oj Townsend MD at [facility] Left: Shoulder [employer] [id number] 09/21/2025 AR-2324BC M / / [id number] Ar[employer]rex Inc Set Implant Arthrex Fibertak Biceps Sterile Latex Free Ar-3670 - [id number] Implanted:Qty: 1 on 02/25/2022 by Oj Townsend MD at [facility] Left: Shoulder [employer] Inc [id number] 03/22/2026 AR-3670 / / [id number] Procedures Procedure Name Priority Date/Time Associated Diagnosis [...] Dawn long Result BATOOL VARGAS (RENETTA) 1 [facility] [place] [address] from Last 3 Months or Most Recently Relevant to Health Maintenance Insurance AETNA MEDICARE [facility] ADVANTRA HUMANA CHOICE MEDICARE PPO Advance Directives For more information, please contact: [phone] Documents on File Type Date Recorded Patient Manager Patient Expl anation ADVANCE DIRECTIVE 08/13/2019 9:05 AM Hoa ng Will ADVANCE DIRECTIVE 08/13/2019 9:07 AM Anne schumacher of Antisubmarine Weapons Officer-Medical * Full Code (Latest Code Status on [...] Alternat e Health Care Agent Care Teams Residential Sales Rep Relationship Specialty Start Date End Date Ricki Wood DO PCP - General 08/03/21
--- OUTSIDE RECORDS SUMMARY | 2025-08-20 17:34 | XMS_ITS | Encounter Summary ---
Author Organization [facility] Address [address] [place] [address] Care Team Providers Care Taxonomy Teacher Name Role Phone Unavailable Primary Care Provider Unavailabl e Encounter Details Date Type Department Care Team (Late st Contact Info) Description 08/19/2025 External Device Data STL ABSTRACTION Provider, Abstract NO ADDRESS ON FILE Social History Tobacco Use Types Packs/Day Years Used Date Smoking Tobacco: Never Alcohol Use Standard Drinks/Week Comments Yes 0 (1 standard drink = 0.6 oz pur e alcohol) socially Sex and Gender Information Value Date Recorded Sex Assigned at Not on file Legal Sex Male 9:32 AM CDT Gender Identity Not on file Sexual Orientation Not on file documented as of this encounter Plan of Treatment Upcoming Encounters Date Type Department Care Team (Late st Contact Info) Description 08/25/2025 2:00 PM PLAYERS ASSISTANT Office Visit [facility] Oncology and Hematology - [place]h [address] [place] [address] [facility] [address] [place] [address] Lenin Zhang MD [address] [facility] [address] [place] [address] documented as of this encounter Visit Diagnoses Not on filedocumented in this encounter
--- OUTSIDE RECORDS SUMMARY | 2025-08-20 17:34 | XMS_ITS | Clinical Summary ---
Author Organization [facility] Address [address], [address] [address] Phone Care Team Providers Care Plasticator Name Role Phone Ricki Wood Primary Care [...] complete this topic Insurance MEDICARE Care Teams Plasticator Relationship Specialty Start Date End Date Ricki Wood DO [address] [facility] [place] [address] PCP - General Internal Medicine 02/09/21
--- OUTSIDE RECORDS SUMMARY | 2025-08-20 17:34 | XMS_ITS | Encounter Summary ---
Author Organization [facility] Address [address] [facility] [place] [address] Phone Care Team Providers Care Non Acoustic Operator Name Role Phone BethelorlandoRickiian Primary Care Provider Reason for Visit * Reason Comments Medication Refill Encounter Details Date Type Department Care Team (Late st Contact Info) Description 04/03/[address] [facility] - Gastroenterology [facility] [address] [place] [address] Elizabeth Cooper March, PAC [address] [place] [address] Medication Refill Social History Tobacco Use Types [...] epigastric documented in this encounter Care Teams Non Acoustic Operator Relationship Specialty Start Date End Date Ricki Wood DO [address] [place] [address] PCP - General Internal Medicine 02/09/21 documented as of this encounter
--- OUTSIDE RECORDS SUMMARY | 2025-08-20 17:34 | XMS_ITS | Encounter Summary ---
Author Organization [facility] Address [address] [place] [address] Care Team Providers Care Compliance Examiner Name Role Phone Unavailable Primary Care Provider Unavailabl e Encounter Details Date Type Department Care Team ([facility] Contact Info) Description 08/20/2025 Orders Only [facility] Oncology and Hematology [facility] [address] [place] [address] Lenin Zhang MD [facility] [address] [place] [address] Plasma cell disorder (Primary Dx) Social History Tobacco Use Types Packs/Day Years [...] Upcoming Encounters Date Type Department Care Team ([facility] Contact Info) Description 08/25/2025 2:00 PM HAND PATTERN MARKER Office Visit [facility] Oncology and Hematology [facility] [address] [place] [address] Lenin Zhang MD [address] [place] [address] Scheduled Orders Name Type Priority Associated Diagnoses Orde r Schedule COMPREHENSIVE METABOLIC PANEL Lab Routine Plasma cell disorder Expected: 08/20/2025, Expires: 08/20/2026 CBC WITH DIFFERENTIAL Lab Routine Plasma cell disorder Expected: 08/20/2025, Expires: 08/20/2026 IMMUNOGLOBULINS IGG IGA IGM Lab Routine Plasma cell disorder Expected: 08/20/2025, Expires: 08/20/2026 KAPPA/LAMBDA, FREE LIGHT CHAINS Lab Routine Plasma cell disorder Expected: 08/20/2025, Expires: 08/20/2026 PROTEIN ELECTROPHORESIS W/REFLEX,SERUM Lab Routine Plasma cell disorder Expected: 08/20/2025, Expires: 08/20/2026 documented as of this encounter Visit Diagnoses Diagnosis 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
--- OUTSIDE RECORDS SUMMARY | 2025-08-20 17:34 | XMS_ITS | Clinical Summary ---
Author Organization [facility] Karoline sandoval Luiza Address [address] [place] [address] Care Team Providers Care Candy Wrapping Machine Operator Name Role Phone Unavailable Primary Care Provider [...] Encounters Date Type Department Care Team Description 08/20/2025 Orders Only [facility] Oncology and Hematology [facility] [address] [place] [address] Lenin Zhang MD Plasma cell disorder (Primary Dx) 08/19/2025 External Device Data STL ABSTRACTION Provider, Abstract 07/16/2025 Telephone [facility] Oncology and Hematology - Mahesh [address] [place] [address] Lenin Zhang MD labs for appt 05/20/2025 Abstract [facility] Oncology and Hematology [facility] [address] [facility] [address] [place] [address] Lenin Zhang MD from Last 3 Months [...] st Contact Info) Description 08/25/2025 2:00 PM AOC AADC OPERATIONS STAFF OFFICER Office Visit [facility] Oncology and Hematology [facility] [address] [place] [address] Lenin Zhagn MD [address] [facility] [address] [place] [address] Health Maintenance Due Date Last [...] 9, 06/20/2017, 07/31/2016, Additional history exists Insurance [facility]
[2025-08-21 13:08] LABS: Albumin 3.8 g/dL (2.9-4.4); Alpha-1-Globulin 0.2 g/dL (0.0-0.4); Alpha-2-Globulin 1.1 g/dL (0.4-1.0); Gamma Globulin 1.2 g/dL (0.4-1.8)
[2025-08-21 15:09] LABS: Free Lambda Lt Chains, Serum 16.9 mg/L (5.7-26.3); Kappa/Lambda Ratio, Serum 1.09 (0.26-1.65)
== END 2025-08-20 15:30 | disposition home or self-care (01) ==
PROVIDERS: PCP Internal Medicine; Visit Provider Internal Medicine Hematology & Oncology
DX: D72.9 Disorder of white blood cells, unspecified (principal)
CPT/HCPCS: 36415; 80053; 82784; 83521; 84155; 84165; 85025

== ENCOUNTER 2025-09-01 14:40 | Outpatient (CLI) | payer MEDICARE, SELFPAY ==
--- OUTSIDE RECORDS SUMMARY | 2007-01-18 01:55 | XMS_ITS | Continuity of Care Document ---
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 [address] [place] , [address], [place], [place], [facility], [place]. tel:[phone] Referring Provider: Niels Mendosa, [facility] [place], [place], [facility]. tel:[phone] Family History Family Member Type Diagnosis Age At Onset No Information Payers Payer name Insurance type Covered alliance party ID Authoriza tion(s) No Information Social History Type Description Quantity Date Captured Comments Sex Male Smoking Status No Information Chief Complaint And Reason For Visit No Information Reason For Referral Reason For Referral No Information History Of Present Illness Encounter Date Complaint History Of Prese nt Illness No Information Functional Status Date Functional Assessmen t No Information Instructions Date Instruction Additional Infor mation No Information Assessments Type Assessment Date No Information Patient Care Teams Name Effective Dates (start - stop) Status Members No Information
--- NOTE | ~2025-09-01 | XR_ITS ---
EXAMINATION: XR finger 3rd RT min 2V, 09/01/2025 14:55 SYSTEMS CHECKOUT MECHANIC HISTORY: S62.662A - Nondisplaced fracture of distal phalanx of rig... COMPARISON: No comparisons available. Findings: Healing fracture of the proximal aspect distal phalanx No significant degenerative changes. Soft tissues unremarkable. Impression: Healing fracture Reviewed, dictated and finalized at location P. EMS CHECKOUT MECHANIC Impression: Healing fracture
--- OUTSIDE RECORDS SUMMARY | 2025-09-01 14:45 | XMS_ITS | Encounter Summary ---
Author Organization [facility] Address [address] [place] [address] Phone Care Team Providers Care Rubber Worker Name Role Phone BethelorlandoRickiian Primary Care Provider Reason for Visit * Reason Comments Medication Refill Encounter Details Date Type Department Care Team (Late st Contact Info) Description 04/03/2022 Refill [facility] [address] [place] [address] Elizabeth Cooper [place], PAC [address] [place] [address] Medication Refill Social History Tobacco Use Types [...] epigastric documented in this encounter Care Teams Rubber Worker Relationship Specialty Start Date End Date Ricki Wood DO [address] [facility] [place] [address] PCP - General Internal Medicine 02/09/21 documented as of this encounter
--- OUTSIDE RECORDS SUMMARY | 2025-09-01 14:45 | XMS_ITS | Clinical Summary ---
Author Organization [facility] Address [address], [address] [address] Phone Care Team Providers Care Software Tools Engineer Name Role Phone Ricki Wood Primary [...] Additional history exists SARS-COV-2 Immunization ( - 2024- season) 2025 Respiratory Syncytial Virus (RSV) Immunization [...] complete this topic Insurance MEDICARE Care Teams Software Tools Engineer Relationship Specialty Start Date End Date Ricki Wood DO [address] [facility] [place] [address] PCP - General Internal Medicine 02/09/21
--- OUTSIDE RECORDS SUMMARY | 2025-09-01 14:45 | XMS_ITS | Clinical Summary ---
Author Organization [facility] Address [address] [facility] [address] [place] [place] [address] Care Team Providers Care Evp And Chief Operating Officer Name Role Phone Unavailable Primary Care Provider [...] 1 Capsule by mouth daily. 2 Active sildenafiL (VIAGRA) 50 mg tablet 5 Active glipiZIDE (GLUCOTROL) 10 mg tablet Take 1 Tablet by mouth 2 times daily. 5 Active Active Problems No known active problems Encounters Date Type Department Care Team Description 08/26/2025 External Device Data STL ABSTRACTION Provider, Abstract 08/25/2025 2:00 PM PARTY PLAN DEALER Office Visit [facility] Oncology and Hematology - Mahesh [address] [place] [id number] Lenin Zhang MD Plasma cell disorder (Primary Dx) 08/25/2025 Orders Only [facility] Oncology and Hematology - Mahesh [address] [place] [address] Lenin Zhang MD 08/22/2025 Orders Only [facility] Oncology and Hematology - Mahesh [address] [place] [phone] Lenin Zhang MD 08/21/2025 Orders Only [facility] Oncology and Hematology - Mahesh [address] [place] [id number] Lenin Zhang MD 08/20/2025 External Device Data STL ABSTRACTION Provider, Abstract 08/20/2025 Orders Only [facility] Oncology and Hematology - Mahesh [address] [place] [phone] Lenin Zhang MD Plasma cell disorder (Primary Dx) 08/19/2025 External Device Data STL ABSTRACTION Provider, Abstract 07/16/2025 Telephone [facility] Oncology and Hematology - Mahesh [address] [place] [phone] Lenin Zhang MD labs for appt from Last 3 Months Family History Medical [...] Sign Reading Time Taken Comments Blood Pressure 182/92 08/25/2025 1:57 PM PARTY PLAN DEALER Pulse 77 08/25/2025 1:53 PM PARTY PLAN DEALER Temperature 36.4 C (97.5 F) 08/25/2025 1:53 PM PARTY PLAN DEALER Respiratory Rate 16 08/25/2025 1:53 PM PARTY PLAN DEALER Oxygen Saturation 96% 08/25/2025 1:53 PM PARTY PLAN DEALER Inhaled Oxygen Concentration - - Weight 142.3 kg (313 lb 12.8 oz) 08/25/2025 1:53 PM PARTY PLAN DEALER Height 185.4 cm (6' 1) 07/02/2024 3:11 PM CDT Body Mass Index 41.4 07/02/2024 3:11 PM CDT Plan of Treatment Health Maintenance Due [...] 2025 9, 06/20/2017, 07/31/2016, Additional history exists Procedures Procedure Name Priority Date/Time Associated Diagnosis Comments IMMUNOGLOBULINS IGG IGA IGM Routine 08/20/2025 3:00 PM CDT COMPREHENSIVE METABOLIC PANEL Routine 08/20/2025 2:55 PM CDT PROTEIN ELECTROPHORESIS, CSF Routine 08/20/2025 11:34 AM CDT KAPPA/LAMBDA LIGHT CHAINS Routine 2024 7:56 AM CDT from Last 3 Months Results * IMMUNOGLOBULINS IGG IGA IGM (08/20/2025 3:00 PM CDT) Blood us Lenin Zahng MD CHEMISTRY ORDERABLES Final Resu lt * COMPREHENSIVE METABOLIC PANEL (08/20/2025 2:55 PM CDT) Blood us Lenin Zhang MD CHEMISTRY ORDERABLES Final Resu lt * PROTEIN ELECTROPHORESIS, CSF (08/20/2025 11:34 AM CDT) Cerebrospinal fluid CEREBROSPINAL FLUID / Unknown us Lenin Zhang MD BODY FLUIDS AND STOOLS Final Re sult * KAPPA/LAMBDA, FREE LIGHT CHAINS (08/20/2025 7:56 AM CDT) Blood Result Vickie Zhang MD CHEMISTRY ORDERABLES Final Resu lt from Last 3 Months Insurance [facility] Address: [address] [address]
--- OUTSIDE RECORDS SUMMARY | 2025-09-01 14:45 | XMS_ITS | Clinical Summary ---
Author Organization [facility] Medical Office Building B Address [address] [place] [address] Care Team Providers Care Cold Storage Worker Name Role Phone Ricki Wood DO Primary Care Provider [phone] Allergies No known active allergies Medications aspirin [...] (02/14/2022): Added automatically from request for surgery [id number] Cellulitis of toe of left foot 08/03/2021 [...] Continue to monitor. Type 2 diabetes mellitus, [facility] long-term current use of insulin [...] Intramuscular 08/13/2019,06/20/2017,07/31/2016 Influenza, Trivalent, IM (MDV) 08/21/2015 [employer] (J&J) SARS-CoV-2 Vaccination 08/03/2021( Deferred: Patient Refused) [...] on file Legal Sex Male 3:14 AM ENVIRONMENTAL RESOURCE SPECIALIST Gender Identity Not on file Sexual Orientation Not on file Last Filed Vital Signs Vital Sign Reading Time Taken Comments Blood Pressure 138/69 09/05/2024 4:35 PM ENVIRONMENTAL RESOURCE SPECIALIST Pulse 79 09/05/2024 4:35 PM ENVIRONMENTAL RESOURCE SPECIALIST Temperature 36.4 C (97.6 F) 09/05/2024 4:35 PM ENVIRONMENTAL RESOURCE SPECIALIST Respiratory Rate 16 09/05/2024 4:35 PM ENVIRONMENTAL RESOURCE SPECIALIST Oxygen Saturation 99% 09/05/2024 4:35 PM ENVIRONMENTAL RESOURCE SPECIALIST Inhaled Oxygen Concentration - - Weight 130.6 kg (288 lb) 09/05/2024 4:35 PM ENVIRONMENTAL RESOURCE SPECIALIST Height 185.4 cm (6' 1) 09/05/2024 4:35 PM ENVIRONMENTAL RESOURCE SPECIALIST Body Mass Index 38 09/05/2024 4:35 PM ENVIRONMENTAL RESOURCE SPECIALIST Plan of Treatment Health Maintenance Due Date [...] or Tdap) 05/01/2023 05/01/2013 eGFR 08/26/2024 08/26/2023, 06/2022, 08/05/2021, Additional history exists Influenza Vaccine (#1) 2025 , 06/20/2017, 07/31/2016, Additional history exists Medical Devices Implanted Type Area Phlebotomy Technologist Device Identifier Shelf Expiration Date Model / Serial / Lot [employer] Corkscrew Suturetape 5.5mm 14.7mm Bioabsorbable Full Thread 1.3mm Ar-1927bct - [id number] Implanted:Qty: 1 on 02/25/2022 by Oj Townsend MD at [facility] Left: Shoulder [employer] Inc [id number] 06/22/2022 AR-1927BC T / / [id number] [employer] Ar-2324 Bcm Swivelock 4.75mm 24.5mm Self Punch Vent Shoulder [place] Suture - [id number] Implanted:Qty: 1 on 02/25/2022 by Oj Townsend MD at [facility] Left: Shoulder [employer] Inc [id number] 09/21/2025 AR-2324BC M / / [id number] [employer] Ar-2324 Bcm Swivelock 4.75mm 24.5mm Self Punch Vent Shoulder [place] Suture - [id number] Implanted:Qty: 1 on 02/25/2022 by Oj Townsend MD at [facility] Left: Shoulder [employer] Inc [id number] 09/21/2025 AR-2324BC M / / [id number] Ar[employer]rex Inc Set Implant Arthrex Fibertak Biceps Sterile Latex Free Ar-3670 - [id number] Implanted:Qty: 1 on 02/25/2022 by Oj Townsend MD at [facility] Left: Shoulder [employer] Inc [id number] 03/22/2026 AR-3670 / / [id number] Procedures Procedure Name Priority Date/Time Associated Diagnosis [...] Dawn long Result BATOOL VARGAS (RENETTA) 1 [facility] [place] [address] from Last 3 Months or Most Recently Relevant to Health Maintenance Insurance AETNA MEDICARE [facility] ADVANTRA HUMANA CHOICE MEDICARE PPO Advance Directives For more information, please contact: [phone] Documents on File Type Date Recorded Patient Guest Service Manager Expl anation ADVANCE DIRECTIVE 08/13/2019 9:05 AM Hoa ng Will ADVANCE DIRECTIVE 08/13/2019 9:07 AM Anne schumacher of International Account Representative-Medical * Full Code (Latest Code Status on [...] Alternat e Health Care Agent Care Teams Cold Storage Worker Relationship Specialty Start Date End Date Ricki Wood DO PCP - General 08/03/21
== END 2025-09-01 14:41 | disposition home or self-care (01) ==
PROVIDERS: PCP Internal Medicine; Visit Provider Plastic Surgery
DX: S62.662D Nondisplaced fracture of distal phalanx of right middle finger, subsequent encounter for fracture with routine healing (principal); X58.XXXD Exposure to other specified factors, subsequent encounter
CPT/HCPCS: 73140